=== PATIENT | female | born 1945 | race Caucasian/White ===

== ENCOUNTER 2016-06-18 11:09 | Emergency (ER) | payer OTHER, MEDICARE ==
[~2016-06-18] VITALS: Ht 154.9 cm; Wt 44.5 kg
[~2016-06-18 11:09] MED LIST: ALBUTEROL SULFAT3 M1 IH; ALBUTEROL0.09 MG/A1 INH; ALBUTEROL2.5 MG/3 M INH/SOL; AMLODIPINE BESYL5 M1 PO; AMLODIPINE10 MG PO; AMOXIL 875 MG875 MG PO; ATORVASTATIN CA20 MG PO; BUPROPION HCL150 M2 PO; BUPROPION HCL150 M4 PO; BUPROPION HCL150 MG PO; CATAPRES 0.1MG0.1 MG PO; CLONIDINE HCL0.1 MG PO; CLONIDINE PO; COREG 12.5MG12.5 MG PO; COREG 6.256.25 MG PO; COREG12.5 M1 PO; COUMADIN5 M2 PO; COZAAR 50MG TAB50 MG PO; COZAAR50 M1 PO; CYCLOBENZAPRINE5 M2 PO; DILAUDID2 M1 PO; FERROUS SULFAT325 M3 PO; K-DUR20 MEQ PO; LASIX20 M1 PO; LASIX40 MG PO; LASIX80 MG PO; LEADER NIC14 MG/24 H TOP; LORAZEPAM1 M1 PO; LORAZEPAM1 MG PO; LOSARTAN POTAS100 MG PO; LOSARTAN POTASS25 M1 PO; METOPROLOL SUC100 M1 PO; METOPROLOL TART50 MG PO; MIRALAX17 GM PO; MIRTAZAPINE15 MG PO; NOVOLOG100 U/ML SC; OXYCODONE HCL5 M1 PO; OXYCODONE5 MG PO; OXYCONTIN15 M1 PO; PERCOCET 325 MG1 TA2 PO; PERCOCET 5-3251 EACH PO; PREDNISONE 20MG20 MG PO; PREDNISONE10 MG PO; PROAIR HFA8.5 GM INH; PROCRIT10000 U/ML IJ; PROVENTIL0.09 MG/A1 PO; ROXICODONE5 MG PO; SYMBICORT 160/41 PUF INH; Senokot S PO; TESSALON PERLE100 MG PO; TRAZODONE HCL50 M1 PO; TYLENOL TAB 32325 MG PO; TYLENOL325 M1 PO; VIBRAMYCIN 100100 MG PO; VITAMIN D1000 UNI1 PO; VITAMIN D50000 IU PO; ZAROXOLYN - DIUL5 MG PO; ZITHROMAX Z-PA250 M1 PO
--- NOTE | 2016-06-18 12:24 | ED MVC/FALL/TRAUMA COMPLAINT ---
History of Present Illness General Chief Complaint: Low Back Pain/Injury Stated Complaint: BACK PAIN S/P SLIP AND FALL Source: patient, old records Exam Limitations: no limitations Vital Signs & Intake/Output Vital Signs & Intake/Output ED Intake and Output 06/19 0000 06/18 1200 Intake Total Output Total Balance Patient 98 lb Weight Allergies Coded Allergies: No Known Allergies (12/05/15) Reconcile Medications Albuterol Sulfate (Proair Hfa) 8.5 GM HFA.AER.AD 2 PUF INH PRN COPD (Reported ) Albuterol Sulfate 2.5 MG/3 ML VIAL.NEB 1 Vial INH/REG PRN COPD (Reported) Amlodipine Besylate 5 MG TABLET 1 TAB PO DAILY BLOOD PRESSURE Carvedilol (Coreg) 12.5 MG TABLET 1 TAB PO BID HEART (Reported) Clonidine HCl 0.1 MG TABLET 1 TAB PO BID BLOOD PRESSURE Ferrous Sulfate 325 MG TABLET 1 TAB PO DAILY SUPPLEMENT (Reported) Furosemide (Lasix) 20 MG TABLET 1 TAB PO DAILY DIURETIC (Reported) Lorazepam 1 MG TABLET 1 TAB PO TID PRN ANXIETY (Reported) Losartan Potassium (Cozaar) 50 MG TABLET 1 TAB PO DAILY BP (Reported) Oxycodone HCl/Acetaminophen (Percocet 5-325 MG Tablet) 1 EACH TABLET 1-2 TAB PO Q4-6 HR PRN PAIN Oxycodone HCl/Acetaminophen (Percocet 5-325 MG Tablet) 5 MG-325 MG TABLET 1 TAB PO TID PRN pain Trazodone HCl 50 MG TABLET 1 TAB PO QHS PRN SLEEP (Reported) Triage Note: PT STATE STHAT SHE WAS STANDING ON THE COUCH TRYING TO REACH FOR LAUNDRY BASKET 2 NIGHTS AGO WHEN SHE FELL BACKWARDS HURTING HER LOW BACK. DENIES HITTING HER HEAD. COMPLAINS OF MID LOW BACK PAIN5 1 Triage Nurses Notes Reviewed? yes Onset: Gradual Duration: day(s): (2), constant Timing: recent history Severity: moderate Severity Numbers: 6 Injuries/Fall Location: back Method of Injury: fall Loss of Consciousness: no loss of consciousness Modifying Factors: Worsens With: movement. 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 There is no loss of consciousness there is no head strike no neck or upper back pain. She denies any abdominal pain arm or leg pain no numbness or tingling no nausea or vomiting. No urinary bowel incontinence. He denies any other complaints patient is otherwise resting comfortably she is not taken anything for the pain pain is worse with change in position better at rest (KELLY SMILEY) Past History Travel History Traveled to [place] past 21 day No Medical History Any Pertinent Medical History? 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 associated with prior liver anemia patient was treated with multiple rounds of rituximab infusion the multiple rounds of rituximab infusion the last one was on July 2015 Musculoskeletal: LEFT HIP FRACTURE 2016 LEFT HIP DISLOCATION X 2 Psychiatric: anxiety, depression Endocrine: NONE Blood Disorders: NONE Cancer(s): NONE APPLICATIONS PACKAGER/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: NONE History of MRSA: No History of VRE: No History of CDIFF: No Surgical History Surgical History: hernia repair-inguinal, hernia repair-umbilical, HERNIA, VARICOSE VEINS Arterial intervention tonsilloectomy Psychosocial History Who do you live with Patient/Self Services at Home Nursing What is your primary language Maltese Tobacco Use: Current Daily Use Daily Tobacco Use Amount/Type: => 5 Cigarettes daily ETOH Use: denies use Illicit Drug Use: denies illicit drug use Family History Family History, If Any: SISTER FATHER MOTHER BROTHER (Myocardial infarction age of 4343 years old). . FATHER FATHER (Liver and lung cancer). . MOTHER MOTHER (Alcoholism and pheochromocytoma). . Relation not specified for: Alcoholism in mother Family hx of lung cancer FH: lung cancer FH: myocardial infarction Hx Contributory? No (KELLY SMILEY) Review of Systems Review of Systems Constitutional: Reports: see HPI. All Other Systems: Reviewed and Negative Comments Review of systems: See HPI, All other systems negative. Constitutional, no chills no fever, no malaise HEENT: no sore throat no congestion, no ear pain Cardiovascular: No chest pain , no palpitation Skin, no jaundice no rashes, no change in skin Respiratory: No dyspnea no cough no sputum GI: No nausea no vomiting, no diarrhea, no bloating/constipation : No dysuria No hematuria, no frequency Muscle skeletal: No joint pain, no joint swelling, back pain, no neck pain, Neurologic: No numbness no headache Psych: No stress Heme/endocrine: No bruising no bleeding Immunology: No lymphadenopathy (KELLY SMILEY) Physical Exam Physical Exam General Appearance: well developed/nourished, no apparent distress, alert, awake Comments: Well-developed well-nourished person in no acute distress HEENT: Normal EENT exam; PERRL, EOMI, HEAD is atraumatic. moist mucous membranes. Neck: Supple, normal range of motion Back: There is right sided paralumbar muscle tenderness palpation or ecchymosis or signs of trauma, no CVA tenderness. Full range of motion Cardiovascular: Regular rate and rhythms no murmurs rubs Respiratory: Chest nontender.There were no bony deformities, no asymmetry. No respiratory distress. Patient speaking in full complete sentences. Breath sounds clear to auscultation bilaterally: NO W/R/R Abdomen: Soft, nontender nondistended, no appreciable organomegaly. Normal bowel sounds. No rebound/guarding, Extremity: No edema, full range of motion of extremities, normal and equal pulses bilaterally, 5 out of 5 strength noted to bilateral upper and lower extremities NEG SLR B/L Neuro: Alert oriented x3, motor sensory normal. There were no obvious focal neurologic abnormalities. Skin: No appreciable rash on exposed skin, skin is warm and dry. Psych: Mood and affect is normal, memory and judgment is normal. Core Measures ACS in differential dx? No Severe Sepsis Present: No Septic Shock Present: No (KELLY SMILEY) Progress Differential Diagnosis: abd injury, C/T/L spine injury, ext injury, ICH, pelvis injury, spinal cord injury Plan of Care: Patient medicated with morphine 4 mg IM CAT scan ordered Discussed with patient and her family her CT results and the compression fractures seen on CT one of which is new compared to previous. The patient states her symptoms are resolved with the morphine and is requesting a prescription for Percocet she states she feels comfortable going home she is ambulatory here with steady gait, she'll follow up with her primary care physician she will return anytime sooner with any concerns Diagnostic Imaging: Viewed by Me: CT Scan. Discussed w/RAD: CT Scan. Radiology Impression: PATIENT: MANUEL CURIEL PRESENT AGE: 70 PATIENT ACCOUNT NO: [id number] : 46 LOCATION: [facility] ORDERING PHYSICIAN: KELLY AGUILAR SERVICE DATE: 06/18/16 EXAM TYPE: CAT - CT LUMB SPINE WO IV CONTRAST EXAMINATION: CT LUMBAR SPINE WITHOUT CONTRAST CLINICAL INFORMATION: Low back pain after fall. COMPARISON: CXR from 06/05/2015. Abdomen and pelvis CT from 10/16/2014. TECHNIQUE: Helical non-contrast CT images were obtained through the lumbar spine and 1.25 and 2.5 mm axial reconstructions were reviewed along with sagittal and coronal MPRs. DLP: 230.99 mGy-cm FINDINGS: Bone density appears diffusely decreased. The framing machine tender image shows intact appearance of the visualized portion of the left hip hemiarthroplasty. Old, severe anterior compression fracture of T12 with vertebral plana deformity and approximately 25 degrees of kyphosis as measured from the inferior endplate of T11 to the superior endplate of L1. These findings are similar in appearance compared to 10/16/2014. There is chronic, mild compression of the posterior third of the superior endplate of the L1 vertebral body. At L1-L2, there is chronic, predominantly posterior disc space narrowing and vacuum disc phenomenon. There is an acute, horizontal fracture through the superior third of the L2 vertebra, mild compression of its superior endplate, and minimal buckling of the superior aspect of its posterior vertebral body wall. There is approximately 20-25% anterior height loss of L2. At L2-L3, there is mild degenerative disc space narrowing, mild disc bulge and osteophyte formation with minimal retrolisthesis of L2 on L3 no significant narrowing of the central canal or neural foramina. At L3-L4, there is mild disc space narrowing and mild disc bulge without significant narrowing of the central canal or neural foramina. At L4-L5, there is severe facet osteoarthritis, left sided laminotomy defect, moderate disc degeneration and disc bulge producing chronic central canal stenosis and right greater than left neural foraminal stenosis. There is chronic grade 1 anterolisthesis of L4 on L5. At L5-S1, there is [id number] facet arthropathy and severe degenerative disc disease with osteophytes producing moderate right and severe left foraminal stenosis. These degenerative findings in the lumbar spine are not appreciably changed compared to 10/16/2014. Mild osteoarthrosis of sacroiliac joints. No evidence of sacral fracture. Atherosclerotic calcification of the abdominal aorta and iliac arteries without aneurysm. There is a stent of the right external iliac artery. No pelvic free fluid. IMPRESSION: 1. Old, severe compression fracture of T12 (i.e. vertebral plana) resulting in hyperkyphosis at the thoracolumbar junction. This remains similar in appearance compared to 10/16/2014. 2. There is a new compression fracture of L2 which exhibits 20-25% anterior height loss. 3. Otherwise, findings within the degenerated spine are not significantly changed compared to 10/16/2014. DICTATED BY: VU MANUEL MD DATE/TIME DICTATED:06/18/161324 LIMITED RADIOLOGY TECHNICIAN:KYLE DATE/TIME TRANSCRIBED:06/18/161324 CONFIDENTIAL, DO NOT COPY WITHOUT APPROPRIATE AUTHORIZATION. <Electronically signed in Other Vendor System> SIGNED BY: VU MANUEL MD 06/18/16 1346 (KELLY SMILEY) Departure Departure Time of Disposition: 1425 Disposition: HOME OR SELF CARE Condition: Stable Clinical Impression Primary Impression: Compression fracture Secondary Impressions: Fall Referrals: KIRSTY WIN,CARON Narvaez (PCP/Family) Additional Instructions: Percocet as directed use caution as this will make you drowsy. Ibuprofen 400 mg every 8 hours this was sent to pharmacy follow-up with primary care physician Departure Forms: Customer Survey General Discharge Information Prescriptions: Current Visit Scripts Oxycodone HCl/Acetaminophen (Percocet 5-325 MG Tablet) 1 TAB PO TID PRN pain #15 TAB (KELLY SMILEY) PA/AUDIOLOGY DIRECTOR Co-Sign Statement Statement: ED Attending supervision documentation- x I saw and evaluated the patient. I have also reviewed all the pertinent lab results and diagnostic results. I agree with the findings and the plan of care as documented in the PA's/AUDIOLOGY DIRECTOR's documentation. [] I have reviewed the ED Record and agree with the PA's/AUDIOLOGY DIRECTOR's documentation. [] Additions or exceptions (if any) to the PAs/AUDIOLOGY DIRECTOR's note and plan are summarized below: [] (GEOVANNA WIN,RADHA)
[2016-06-18 13:20] VITALS: BP 150/72
--- NOTE | 2016-06-18 13:46 | CT SCAN REPORT ---
EXAMINATION: CT LUMBAR SPINE WITHOUT CONTRAST CLINICAL INFORMATION: Low back pain after fall. COMPARISON: CXR from 06/05/2015. Abdomen and pelvis CT from 10/16/2014. TECHNIQUE: Helical non-contrast CT images were obtained through the lumbar spine and 1.25 and 2.5 mm axial reconstructions were reviewed along with sagittal and coronal MPRs. DLP: 230.99 mGy-cm FINDINGS: Bone density appears diffusely decreased. The state game protector image shows intact appearance of the visualized portion of the left hip hemiarthroplasty. Old, severe anterior compression fracture of T12 with vertebral plana deformity and approximately 25 degrees of kyphosis as measured from the inferior endplate of T11 to the superior endplate of L1. These findings are similar in appearance compared to 10/16/2014. There is chronic, mild compression of the posterior third of the superior endplate of the L1 vertebral body. At L1-L2, there is chronic, predominantly posterior disc space narrowing and vacuum disc phenomenon. There is an acute, horizontal fracture through the superior third of the L2 vertebra, mild compression of its superior endplate, and minimal buckling of the superior aspect of its posterior vertebral body wall. There is approximately 20-25% anterior height loss of L2. At L2-L3, there is mild degenerative disc space narrowing, mild disc bulge and osteophyte formation with minimal retrolisthesis of L2 on L3 no significant narrowing of the central canal or neural foramina. At L3-L4, there is mild disc space narrowing and mild disc bulge without significant narrowing of the central canal or neural foramina. At L4-L5, there is severe facet osteoarthritis, left sided laminotomy defect, moderate disc degeneration and disc bulge producing chronic central canal stenosis and right greater than left neural foraminal stenosis. There is chronic grade 1 anterolisthesis of L4 on L5. At L5-S1, there is [id number]-ri-[id number] facet arthropathy and severe degenerative disc disease with osteophytes producing moderate right and severe left foraminal stenosis. These degenerative findings in the lumbar spine are not appreciably changed compared to 10/16/2014. Mild osteoarthrosis of sacroiliac joints. No evidence of sacral fracture. Atherosclerotic calcification of the abdominal aorta and iliac arteries without aneurysm. There is a stent of the right external iliac artery. No pelvic free fluid. IMPRESSION: 1. Old, severe compression fracture of T12 (i.e. vertebral plana) resulting in hyperkyphosis at the thoracolumbar junction. This remains similar in appearance compared to 10/16/2014. 2. There is a new compression fracture of L2 which exhibits 20-25% anterior height loss. 3. Otherwise, findings within the degenerated spine are not significantly changed compared to 10/16/2014.
[2016-06-18] MEDS ORDERED: PERCOCET 5-3251 EACH PO (14:33)
[2016-09-08] MEDS ORDERED: ZOLOFT50 M1 PO (13:16)
[2016-09-08] MEDS ORDERED: AMLODIPINE BESY10 M1 PO (13:16)
[2016-09-08] MEDS ORDERED: ATIVAN0.5 M1 PO (13:17)
== END 2016-06-18 14:38 ==
LOC: ERH 11:09
DX: S32.020A Wedge compression fracture of second lumbar vertebra, initial encounter for closed fracture (principal); W08.XXXA Fall from other furniture, initial encounter
CPT/HCPCS: 96372

== ENCOUNTER → 2016-09-10 | Day surgery (SDC) | payer OTHER, MEDICARE ==
[~2016-09-10] VITALS: Ht 154.9 cm; Wt 44.5 kg
[~2016-09-10] MED LIST changes: +AMLODIPINE BESY10 M1 PO; +ATIVAN0.5 M1 PO; +IBUPROFEN600 M1 PO; +PERCOCET 10-321 EACH PO; +ZOLOFT50 M1 PO
--- NOTE | 2016-09-10 12:29 | Operative Report ---
Operative/Inv Procedure Report Surgery Date: 09/10/16 Name of Procedure: Laparoscopic bilateral inguinal hernia repair Pre-Operative Diagnosis: Left inguinal hernia Post-Operative Diagnosis: Bilateral inguinal hernia Estimated Blood Loss: scant Surgeon/Athletic Trainer: DB WIN,EILEEN Neumann/Svetlana AGUILAR Anesthesia: general endotracheal tube Implants: Parietex mesh Operative/Procedure Note Note: After consent patient is brought to the operating room laid supine. General anesthesia was obtained and the abdomen was prepped and draped. Skin was anesthetized with local anesthesia and a transverse infraumbilical incision made sharply. We identified the rectus fascia and incised transversely. Stay sutures were placed. Rectus muscle was retracted laterally and a dissecting balloon placed posterior to it. It was inflated under direct vision the camera and replaced with a blunt Key port. Gas was instilled. 2, 5 mm ports were placed in the infraumbilical midline after local anesthesia was instilled and under direct vision and camera. Began our dissection at the pubis and delineated the symphysis. Carrillo's ligament was identified and cleared. Then dissected laterally and developed the iliopubic tract. The round ligament structures were circumferentially dissected. There was a small indirect hernia sac which was delivered from the indirect space and reflected inferiorly. A small cord lipoma was then delivered. Once the dissection was completed a left -sided piece of Parietex mesh was placed in the cavity. It was tacked medially to keep it in anatomic position. We then turned attention to the contralateral side. Preoperative lead patient complains of new onset right groin pain. I recommended exploration of that site, concurrently. There was a moderate sized femoral hernia. The tissues were dissected in a similar fashion to the left side. There was a small indirect sac as well. There was a small cord lipoma which was delivered. Round ligament was divided. Mesh was placed a similar fashion intact. Once were happy with the position of both meshes, the gas was allowed to escape on maintaining proper orientation of the mesh. The fascia was closed with 0 Vicryl suture. Skin incisions closed with 4-0 Vicryl. Steri- Strips and sterile dressing applied. Sponge and needle counts are correct. Findings: Indirect left, femoral right CC: KIRSTY WIN,CARON Narvaez
== END ==
LOC: STS 03:25
DX: K40.20 Bilateral inguinal hernia, without obstruction or gangrene, not specified as recurrent (principal); R10.32 Left lower quadrant pain; R10.31 Right lower quadrant pain; B18.2 Chronic viral hepatitis C; I12.9 Hypertensive chronic kidney disease with stage 1 through stage 4 chronic kidney disease, or unspecified chronic kidney disease; N18.4 Chronic kidney disease, stage 4 (severe); F17.200 Nicotine dependence, unspecified, uncomplicated
CPT/HCPCS: C1781; J0690; J2250

== ENCOUNTER 2016-09-20 10:15 | Emergency (ER) | payer OTHER, MEDICARE ==
[~2016-09-20] VITALS: Ht 152.4 cm; Wt 43.1 kg
[~2016-09-20 10:15] MED LIST changes: -IBUPROFEN600 M1 PO; -PERCOCET 10-321 EACH PO
--- NOTE | 2016-09-20 12:15 | RADIOLOGY REPORT ---
EXAMINATION: XR SHOULDER, RIGHT CLINICAL INFORMATION: Fall, right shoulder ecchymosis and pain. COMPARISON: None TECHNIQUE: Four views of the right shoulder. FINDINGS: There is marked superior subluxation of the humeral head with sclerosis of the humeral head and subchondral cyst formation. There is also chronic thinning of the undersurface of the acromion. Moderate osteophyte formation is seen at the humeral head as well as at the acromioclavicular joint. No fracture is seen. No additional findings. The glenohumeral joint is not significantly narrowed. IMPRESSION: Significant degenerative changes in the right shoulder most notable at the acromioclavicular joint and humeral head. Marked superior subluxation of the humeral head consistent with chronic advanced rotator cuff disease with advanced degenerative changes in the humeral head and acromion. Associated degenerative change in the acromioclavicular joint. No acute findings.
--- NOTE | 2016-09-20 12:22 | RADIOLOGY REPORT ---
EXAMINATION: XR KNEE, LEFT CLINICAL INFORMATION: Fall with left knee pain and swelling, loss of range of motion. COMPARISON: None TECHNIQUE: Four views of the left knee. FINDINGS: Trace knee joint effusion. Moderate soft tissue swelling is identified most notable medial to the right knee and patella. There is a suggestion of a patellar fracture on the internally rotated view. Moderate narrowing of the lateral knee joint is seen with mild valgus angulation no additional findings. IMPRESSION: Moderate soft tissue swelling and trace knee effusion. Possible patellar fracture. Recommend sunrise view for further evaluation. Degenerative changes are seen in the lateral joint compartment.
--- NOTE | 2016-09-20 12:42 | ED MVC/FALL/TRAUMA COMPLAINT ---
History of Present Illness General Chief Complaint: Fall Stated Complaint: FALL YESTERDAY LFT KNEE PAIN Source: patient, old records Exam Limitations: no limitations Vital Signs & Intake/Output Vital Signs & Intake/Output Vital Signs Date Time Temp Pulse Resp B/P B/P Pulse O2 O2 Flow FiO2 Mean Ox Delivery Rate 09/20 1255 200/100 09/20 1218 97.3 72 18 203/93 100 Room Air 09/20 1031 97.1 73 18 170/96 95 Allergies Coded Allergies: No Known Allergies (12/05/15) Reconcile Medications Albuterol Sulfate (Proair Hfa) 8.5 GM HFA.AER.AD 2 PUF INH PRN COPD (Reported ) Albuterol Sulfate 2.5 MG/3 ML VIAL.NEB 1 Vial INH/REG PRN COPD (Reported) Amlodipine Besylate 10 MG TABLET 1 TAB PO DAILY HTN (Reported) Carvedilol (Coreg) 12.5 MG TABLET 1 TAB PO BID HEART (Reported) Clonidine HCl 0.1 MG TABLET 1 TAB PO BID BLOOD PRESSURE Ferrous Sulfate 325 MG TABLET 1 TAB PO DAILY SUPPLEMENT (Reported) Furosemide (Lasix) 20 MG TABLET 1 TAB PO DAILY DIURETIC (Reported) Ibuprofen 600 MG TABLET 1 TAB PO Q6PRN PRN pain with food Lorazepam (Ativan) 0.5 MG TABLET 1 TAB PO TID ANXIETY (Reported) Losartan Potassium (Cozaar) 50 MG TABLET 1 TAB PO DAILY BP (Reported) Oxycodone HCl/Acetaminophen (Percocet 10-325 MG Tablet) 10 MG-325 MG TABLET 1 TAB PO 4 TIMES/DAY PRN severe pain Sertraline HCl (Zoloft) 50 MG TABLET 1 TAB PO DAILY DEPRESSION (Reported) Triage Note: PT TO ED FOR LEFT LEG PAIN AFTER A TRIP OUTSIDE OF THE [employer] YESTERDAY, NO LOC. Triage Nurses Notes Reviewed? yes Onset: yesterday Duration: day(s):, constant, continues in ED Timing: recent history Severity: severe Injuries/Fall Location: upper extremity, lower extremity Method of Injury: direct blow, fall Loss of Consciousness: no loss of consciousness Modifying Factors: Worsens With: movement, palpation. Associated Symptoms: trouble walking LMP (ages 10-50): post menopausal : No Patient currently breastfeeds: No HPI: 1 day prior to admission patient slipped and fell landing on her right shoulder and left knee complaining of constant sharp pain and swelling limited range of motion. She denies other injury fever chills nausea vomiting diarrhea abdominal pain chest pain shortness of breath headache dysuria rash bleeding Past History Travel History Traveled to [place] past 21 day No Medical History Any Pertinent Medical History? 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 . FATHER FATHER (Liver and lung cancer). . MOTHER MOTHER (Alcoholism and pheochromocytoma). . Relation not specified for: Alcoholism in mother Family hx of lung cancer FH: lung cancer FH: myocardial infarction Hx Contributory? No Review of Systems Review of Systems Constitutional: Reports: no symptoms. Eyes: Reports: no symptoms. Ears, Nose, Throat, Mouth: Reports: no symptoms. Respiratory: Reports: no symptoms. Cardiovascular: Reports: no symptoms. Gastrointestinal/Abdominal: Reports: no symptoms. Genitourinary: Reports: no symptoms. Musculoskeletal: Reports: see HPI, joint pain, joint swelling. Skin: Reports: no symptoms. Neurological/Psychological: Reports: no symptoms. All Other Systems: Reviewed and Negative Physical Exam Physical Exam General Appearance: well developed/nourished, alert, awake, anxious, moderate distress, thin Head: atraumatic, normal appearance Eyes: Bilateral: normal appearance, PERRL, EOMI. Ears, Nose, Throat, Mouth: hearing grossly normal, moist mucous membrane Neck: normal inspection, supple, full range of motion, normal alignment Respiratory: normal breath sounds, chest non-tender, no respiratory distress, quiet respiration, lungs clear Cardiovascular: regular rate/rhythm, normal peripheral pulses, norml femoral pulses equa Peripheral Pulses: 4+ carotid (R), 4+ carotid (L) Gastrointestinal: normal bowel sounds, soft, non-tender, no organomegaly Back: normal inspection, normal range of motion Extremities: evidence of injury, bony-point tenderness, limited range of motion, straight leg raised, tenderness Neurologic/Psych: no motor/sensory deficits, awake, alert, oriented x 3, normal gait Skin: intact, normal color, warm/dry Core Measures ACS in differential dx? No Severe Sepsis Present: No Septic Shock Present: No Progress Differential Diagnosis: ext injury Plan of Care: Orders Procedure Date/time Status XRY-KNEE, LEFT 09/20 1236 Active Diagnostic Imaging: Viewed by Me: Radiology Read. Discussed w/RAD: Radiology Read. Radiology Impression: Moderate soft tissue swelling and trace knee effusion. Possible patellar fracture. Recommend sunrise view for further evaluation. Degenerative changes are seen in the lateral joint compartment., Significant degenerative changes in the right shoulder most notable at the acromioclavicular joint and humeral head. Marked superior subluxation of the humeral head consistent with chronic advanced rotator cuff disease with advanced degenerative changes in the humeral head and acromion. Associated degenerative change in the acromioclavicular joint. No acute findings., Unremarkable sunrise view however there does appear to be a nondisplaced horizontal fracture which would not be evident on sunrise view. Departure Departure Time of Disposition: 1358 Disposition: HOME OR SELF CARE Condition: Stable Clinical Impression Primary Impression: Left patella fracture Qualifiers: Encounter type: initial encounter Fracture type: closed Fracture morphology: transverse Fracture alignment: nondisplaced Qualified Code: S82.035A - Nondisplaced transverse fracture of left patella, initial encounter for closed fracture Secondary Impressions: Contusion of knee, left Qualifiers: Encounter type: initial encounter Qualified Code: S80.02XA - Contusion of left knee, initial encounter Contusion of shoulder, right Qualifiers: Encounter type: initial encounter Qualified Code: S40.011A - Contusion of right shoulder, initial encounter Fall Qualifiers: Encounter type: initial encounter Qualified Code: W19.XXXA - Unspecified fall, initial encounter Referrals: KIRSTY WIN,CARON Narvaez (PCP/Family) CONSTANCE SUERO MD Call for orthopedic follow up Departure Forms: Customer Survey General Discharge Information Prescriptions: Current Visit Scripts Ibuprofen 1 TAB PO Q6PRN PRN pain #50 TAB with food Oxycodone HCl/Acetaminophen (Percocet 10-325 MG Tablet) 1 TAB PO 4 TIMES/DAY PRN severe pain #15 TAB Procedures Splinting Location: L knee Pre-Made Type: knee imobilizer Splint: knee immobilizer Splint Applied By: splint applied by other Pre-Proc Neuro Vasc Exam: normal Post-Proc Neuro Vasc Exam: normal
[2016-09-20] MEDS ORDERED: PERCOCET 10-321 EACH PO (14:03)
[2016-09-20] MEDS ORDERED: IBUPROFEN600 M1 PO (14:03)
--- NOTE | 2016-09-20 14:09 | RADIOLOGY REPORT ---
EXAMINATION: XR KNEE sunrise view CLINICAL INFORMATION: Question patellar fracture. COMPARISON: Earlier on same day TECHNIQUE: Clarinda view of the left knee. FINDINGS: The sunrise view does not show any abnormality however on 2 other views performed earlier there appears to be a nondisplaced horizontal fracture of the patella. No distraction of fracture fragments identified. IMPRESSION: Unremarkable sunrise view however there does appear to be a nondisplaced horizontal fracture which would not be evident on sunrise view.
[2016-09-20 14:28] VITALS: BP 184/91
== END 2016-09-20 14:35 ==
LOC: ERH 10:15
DX: S82.002A Unspecified fracture of left patella, initial encounter for closed fracture (principal); S40.011A Contusion of right shoulder, initial encounter; S80.02XA Contusion of left knee, initial encounter; W01.0XXA Fall on same level from slipping, tripping and stumbling without subsequent striking against object, initial encounter; Y92.510 Bank as the place of occurrence of the external cause; Y93.9 Activity, unspecified
CPT/HCPCS: 73030-RT; 73560-LT; 73562-LT

== ENCOUNTER 2017-07-01 16:23 | Emergency (ER) | payer OTHER, MEDICARE ==
[~2017-07-01] VITALS: Ht 157.5 cm; Wt 45.4 kg
[~2017-07-01 16:23] MED LIST changes: +IBUPROFEN600 M1 PO; +PERCOCET 10-321 EACH PO
[2017-07-01 17:04] LABS: ABSOLUTE BASOPHIL COUNT 0 /CUMM (0.0-0.2); ABSOLUTE EOSINOPHIL COUNT 0.1 /CUMM (0.0-0.7); ABSOLUTE GRANULOCYTE CT 5.3 /CUMM (1.4-6.5); ABSOLUTE LYMPH COUNT 1.5 /CUMM (1.2-3.4); ABSOLUTE MONOCYTE COUNT 0.7 /CUMM (0.10-0.60); BASOPHIL % 0.3 % (0.0-2.0); EOSINOPHIL % 0.7 % (0-5); GRANULOCYTE % 70.1 % (42.2-75.2); HEMATOCRIT 35.3 % (37-47); MEAN CORPUSCULAR HGB 30.4 PG (27.0-31.0); MEAN CORPUSCULAR VOLUME 89.4 FL (81.0-99.0); MEAN PLATELET VOLUME 7.7 FL (7.4-10.4); PLATELET COUNT 259 /CUMM (130-400); RBC DISTRIBUTION WIDTH 13.6 % (11.5-14.5); RED BLOOD CELL CT 3.95 /CUMM (4.20-5.40); WHITE BLOOD CELL COUNT 7.5 /CUMM (4.8-10.8)
--- NOTE | 2017-07-01 17:07 | ED GENERAL ADULT ---
History of Present Illness General Chief Complaint: General Adult Stated Complaint: HTN Source: patient Exam Limitations: no limitations Vital Signs & Intake/Output Vital Signs & Intake/Output Vital Signs Date Time Temp Pulse Resp B/P B/P Pulse O2 O2 Flow FiO2 Mean Ox Delivery Rate 07/01 2101 98.0 66 18 168/78 98 Room Air 07/01 1950 97.9 62 18 170/88 98 Room Air 07/01 1833 97.2 84 18 178/79 99 Room Air 07/01 1757 97.1 60 16 192/92 100 Room Air 07/01 1755 192/92 07/01 1645 98 Room Air 07/01 1629 97.0 65 18 198/96 99 Room Air Allergies Coded Allergies: No Known Allergies (12/05/15) Reconcile Medications Albuterol Sulfate (Proair Hfa) 8.5 GM HFA.AER.AD 2 PUF INH PRN COPD (Reported ) Albuterol Sulfate 2.5 MG/3 ML VIAL.NEB 1 Vial INH/REG PRN COPD (Reported) Amlodipine Besylate 10 MG TABLET 1 TAB PO DAILY HTN (Reported) Carvedilol (Coreg) 12.5 MG TABLET 1 TAB PO BID HEART (Reported) Clonidine HCl 0.1 MG TABLET 1 TAB PO BID BLOOD PRESSURE Ferrous Sulfate 325 MG TABLET 1 TAB PO DAILY SUPPLEMENT (Reported) Furosemide (Lasix) 20 MG TABLET 1 TAB PO DAILY DIURETIC (Reported) Ibuprofen 600 MG TABLET 1 TAB PO Q6PRN PRN pain with food Lorazepam (Ativan) 0.5 MG TABLET 1 TAB PO TID ANXIETY (Reported) Losartan Potassium (Cozaar) 50 MG TABLET 1 TAB PO DAILY BP (Reported) Oxycodone HCl/Acetaminophen (Percocet 10-325 MG Tablet) 10 MG-325 MG TABLET 1 TAB PO 4 TIMES/DAY PRN severe pain Sertraline HCl (Zoloft) 50 MG TABLET 1 TAB PO DAILY DEPRESSION (Reported) Triage Note: 71 YEAR OLD FEMALE BROUGHT TO ER VIA STRETCHER FROM GI LAB FOR ELEVATED BP , PER DEYA FROM GI, PT CAME IN FOR HER COLONOSCOPY AND HER BP WAS ELEVATED , THEY MEDICATED HER WITH [id number] MG IV AND BP STABALIZED AND SHE HAD HER PROCEDURE, AFTER PROCEDURE HER BP WAS ELEVATED AGAIN AND SHE WAS BROUGHT TO ER FOR FURTHER EVALUATION OF HER BP. DENIES CP/SOB STATES THAT SHE DID HAVE L ARM PAIN YESTERDAY. Triage Nurses Notes Reviewed? yes Onset: Abrupt Duration: hour(s):, constant Timing: recent history Injury Environment: home No Modifying Factors: none HPI: 71-year-old female comes into the emergency room for further evaluation from GI suite being found to be hypertensive. Patient reportedly was hypertensive prior to the colonoscopy. They gave her some labetalol. She was hypertensive after the colonoscopy at 230 systolic. She denies any chest pain or shortness of breath currently. She reports though that she did have some chest pain the other day intermittently in the left side. Denies any fever chills vomiting. She's also had neck pain left posterior for a few days. (Chris Mccallum) Past History Travel History Traveled to [place] past 21 day No Medical History Any Pertinent Medical History? 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 . FATHER FATHER (Liver and lung cancer). . MOTHER MOTHER (Alcoholism and pheochromocytoma). . Relation not specified for: Alcoholism in mother Family hx of lung cancer FH: lung cancer FH: myocardial infarction Hx Contributory? No (Chris Mccallum) Review of Systems Review of Systems Constitutional: Reports: no symptoms. EENTM: Reports: no symptoms. Respiratory: Reports: no symptoms. Cardiovascular: Reports: see HPI. GI: Reports: no symptoms. Genitourinary: Reports: no symptoms. Musculoskeletal: Reports: no symptoms. Skin: Reports: no symptoms. Neurological/Psychological: Reports: no symptoms. Hematologic/Endocrine: Reports: no symptoms. Immunologic/Allergic: Reports: no symptoms. All Other Systems: Reviewed and Negative (Chris Mccallum) Physical Exam Physical Exam General Appearance: well developed/nourished, no apparent distress, alert, awake Head: atraumatic, normal appearance Eyes: Bilateral: normal appearance. Ears, Nose, Throat: normal ENT inspection, hearing grossly normal Neck: normal inspection Respiratory: normal breath sounds, no respiratory distress Cardiovascular: regular rate/rhythm Back: normal inspection Extremities: normal inspection, normal range of motion, no edema Neurologic/Psych: awake, alert, oriented x 3, normal gait, normal mood/affect Skin: intact, normal color Core Measures ACS in differential dx? Yes CVA/TIA Diagnosis: No Sepsis Present: No Sepsis Focused Exam Completed? No (Chris Mccallum) Progress Differential Diagnoses I considered the following diagnoses in my evaluation of the patient: Hypertensive urgency, hypertensive emergency, NE, end organ damage, Plan of Care: Orders Procedure Date/time Status Regular Diet 07/02 B Active TROPONIN LEVEL 07/01 1950 Complete EKG 07/01 1950 Active URINALYSIS 07/01 162 Complete TROPONIN LEVEL 07/01 1629 Complete PARTIAL THROMBOPLASTIN TIME 07/01 162 Complete PROTHROMBIN TIME 07/01 1629 Complete COMPREHENSIVE METABOLIC PANEL 07/01 1629 Complete CBC WITHOUT DIFFERENTIAL 07/01 162 Complete EKG 07/01 1629 Active Laboratory Tests 07/01/17 1945: Troponin I < 0.01 07/01/17 1712: Urine Color YEL, Urine Clarity CLEAR, Urine pH 6.0, Ur Specific [place] 1.020, Urine Protein 100 H, Urine Ketones NEG, Urine Nitrite NEG, Urine Bilirubin NEG, Urine Urobilinogen 0.2, Ur Leukocyte Esterase NEG, Ur Microscopic SEDIMENT EXAMINED, Urine RBC FEW H, Urine WBC RARE, Ur Epithelial Cells FEW, Urine Bacteria FEW H, Urine Mucus RARE, Urine Hemoglobin TRACE-INTACT, Urine Glucose 100 H 07/01/17 1648: Anion Gap 11, Estimated GFR 34 L, BUN/Creatinine Ratio 10.0, Glucose 84, Calcium 8.7, Total Bilirubin 0.4, AST 13 L, ALT 19, Alkaline Phosphatase 60, Troponin I < 0.01, Total Protein 6.0 L, Albumin 3.2 L, Globulin 2.8, Albumin/ Globulin Ratio 1.1, PT 11.3, INR 1.04, APTT 32, CBC w Diff NO MAN DIFF REQ, RBC 3.95 L, MCV 89.4, MCH 30.4, MCHC 34.0, RDW 13.6, MPV 7.7, Gran % 70.1, Lymphocytes % 19.2 L, Monocytes % 9.7 H, Eosinophils % 0.7, Basophils % 0.3, Absolute Granulocytes 5.3, Absolute Lymphocytes 1.5, Absolute Monocytes 0.7 H, Absolute Eosinophils 0.1, Absolute Basophils 0, Lyme Disease Antibody Cancelled Diagnostic Imaging: Viewed by Me: Radiology Read. Discussed w/RAD: Radiology Read. Radiology Impression: PATIENT: MANUEL CURIEL PRESENT AGE: 71 PATIENT ACCOUNT NO: [id number] : 46 LOCATION: [facility] ORDERING PHYSICIAN: Chris AGUILAR SERVICE DATE: 07/01/17 EXAM TYPE : RAD - XRY-PORTABLE CHEST XRAY EXAMINATION: XR PORTABLE CHEST CLINICAL INFORMATION: Intermittent chest pain COMPARISON: Multiple priors, most recently chest CT performed 07/17/2016 TECHNIQUE: Portable frontal view of the chest was obtained. FINDINGS: Cardiac leads overlie the chest. The lungs appear mildly hyperexpanded. There is no focal consolidation, edema, or effusion. No pneumothorax. Nipple shadows are noted bilaterally. The cardiomediastinal silhouette is within normal limits. No acute osseous abnormality. IMPRESSION: Mild lung hyperexpansion consistent with known emphysema. No consolidation. DICTATED BY: Albert Rdz MD DATE/TIME DICTATED:07/01/171699 PROPERTY DEVELOPER:KYLE DATE/TIME TRANSCRIBED:07/01/171699 CONFIDENTIAL, DO NOT COPY WITHOUT APPROPRIATE AUTHORIZATION. <Electronically signed in Other Vendor System> SIGNED BY: Albert Rdz MD 07/01/171704 Initial ED EKG: normal sinus rhythm, rate (60) Repeat EKG: unchanged (Chris Mccallum) Departure Departure Disposition: HOME OR SELF CARE Condition: Stable Clinical Impression Primary Impression: Hypertension Referrals: Buzz WIN,Hugh Hogan (PCP/Family) Additional Instructions: Take her blood pressure medication at home as prescribed. Return if any concerns worsening symptoms. Please go over all results of today's visit with your primary care doctor. Contact your primary care doctor to let them know you were here in the emergency room. There may be nonspecific findings which may not be related to your visit today here in the emergency room but may require further evaluation and chronic monitoring by your primary care doctor. If you had a laceration today the chance of foreign body always remains. You should follow-up with your primary care doctor for recheck in 3-5 days for a wound check. If you had an x-ray done there is a chance that a fracture could have been missed on initial read and you should follow-up with your primary care doctor for repeat x-rays if symptoms persist. If your blood pressure was elevated here in the emergency room please have rechecked by maria alejandra primary care doctor within the next 48. If you were prescribed a narcotic here in the emergency room or any type of controlled substances you're not allowed to drive while taking this medication or operate any type of heavy machinery. Narcotics can make you feel lightheaded dizziness nausea and can cause constipation. You may need to corn picker a stool softener. Thank you for choosing [facility] emergency room. Please return to the emergency room immediately if you have any other concerns worsening of symptoms. Departure Forms: Customer Survey General Discharge Information Comments 07/01/2017 8:44:57 PM Patient clinically looks well. In no apparent distress. Nontoxic appearing. Asymptomatic here in the emergency room. Follow-up with Dr. Esquivel from cardiology. Take your blood pressure medication as prescribed. Patient understands and agrees with plan of care. Reevaluated multiple times. Blood pressure improves. Patient seen by Dr. Dotson. Spoke with Dr. Esquivel on the phone as a consultation and he agrees he can follow up with the patient in the office. (Chris Mccallum) PA/ONCOLOGY SOCIAL WORK Co-Sign Statement Statement: ED Attending supervision documentation- [x] I saw and evaluated the patient. I have also reviewed all the pertinent lab results and diagnostic results. I agree with the findings and the plan of care as documented in the PA's/ONCOLOGY SOCIAL WORK's documentation. [] I have reviewed the ED Record and agree with the PA's/ONCOLOGY SOCIAL WORK's documentation. [] Additions or exceptions (if any) to the PAs/ONCOLOGY SOCIAL WORK's note and plan are summarized below: [] (Zeyad Dotson DO) Critical Care Note Critical Care Note Critical Care Time: 30-74 min (35) (Dylan AGUILAR,Chris)
[2017-07-01 17:10] LABS: PT 11.3 SEC (9.4-12.5); PTT 32 SEC (25-37)
[2017-07-01 21:01] VITALS: BP 168/78
== END 2017-07-01 21:02 ==
LOC: ERH 16:23
PROVIDERS: Physician Assistant Medical
DX: I10 Essential (primary) hypertension (principal); Z87.891 Personal history of nicotine dependence
CPT/HCPCS: 86618; 71045; 81001; 93005; 93010; 96374; 99291; J0360

== ENCOUNTER 2017-07-06 14:56 | Inpatient (IN) | payer OTHER, MEDICARE ==
[~2017-07-06] VITALS: Ht 154.9 cm; Wt 47.9 kg
[2017-07-06 17:34] LABS: ABSOLUTE BASOPHIL COUNT 0 /CUMM (0.0-0.2); ABSOLUTE EOSINOPHIL COUNT 0.2 /CUMM (0.0-0.7); ABSOLUTE GRANULOCYTE CT 4.7 /CUMM (1.4-6.5); ABSOLUTE LYMPH COUNT 1.3 /CUMM (1.2-3.4); ABSOLUTE MONOCYTE COUNT 0.6 /CUMM (0.10-0.60); BASOPHIL % 0.6 % (0.0-2.0); EOSINOPHIL % 3.3 % (0-5); GRANULOCYTE % 67.8 % (42.2-75.2); HEMATOCRIT 35.7 % (37-47); MEAN CORPUSCULAR HGB 30.6 PG (27.0-31.0); MEAN CORPUSCULAR HGB CONC 33.7 G/DL (33.0-37.0); MEAN PLATELET VOLUME 7.8 FL (7.4-10.4); PLATELET COUNT 243 /CUMM (130-400); RBC DISTRIBUTION WIDTH 14.6 % (11.5-14.5); RED BLOOD CELL CT 3.92 /CUMM (4.20-5.40); WHITE BLOOD CELL COUNT 6.9 /CUMM (4.8-10.8)
--- NOTE | 2017-07-06 17:35 | ED GENERAL ADULT ---
History of Present Illness General Chief Complaint: General Adult Stated Complaint: ELEVATED BP PER PT Source: patient Exam Limitations: no limitations Vital Signs & Intake/Output Vital Signs & Intake/Output Vital Signs Date Time Temp Pulse Resp B/P B/P Pulse O2 O2 Flow FiO2 Mean Ox Delivery Rate 07/06 1942 64 20 180/90 07/06 1936 64 20 180/90 07/06 1931 97 Room Air 07/06 1929 180/98 07/06 1929 97.0 64 20 183/87 98 Room Air 07/06 1912 70 20 189/90 07/06 1817 68 20 189/94 97 Room Air 07/06 1732 186/82 07/06 1701 97.8 61 18 198/102 96 Room Air 07/06 1503 98.5 68 20 172/95 96 Room Air Allergies Coded Allergies: No Known Allergies (12/05/15) Reconcile Medications Albuterol Sulfate (Proair Hfa) 8.5 GM HFA.AER.AD 2 PUF INH PRN COPD (Reported ) Albuterol Sulfate 2.5 MG/3 ML VIAL.NEB 1 Vial INH/REG PRN COPD (Reported) Amlodipine Besylate 10 MG TABLET 1 TAB PO DAILY HTN (Reported) Carvedilol (Coreg) 12.5 MG TABLET 1 TAB PO BID HEART (Reported) Clonidine HCl 0.1 MG TABLET 1 TAB PO BID BLOOD PRESSURE Ferrous Sulfate 325 MG TABLET 1 TAB PO DAILY SUPPLEMENT (Reported) Furosemide (Lasix) 20 MG TABLET 1 TAB PO DAILY DIURETIC (Reported) Ibuprofen 600 MG TABLET 1 TAB PO Q6PRN PRN pain with food Lorazepam (Ativan) 0.5 MG TABLET 1 TAB PO TID ANXIETY (Reported) Losartan Potassium (Cozaar) 50 MG TABLET 1 TAB PO DAILY BP (Reported) Oxycodone HCl/Acetaminophen (Percocet 10-325 MG Tablet) 10 MG-325 MG TABLET 1 TAB PO 4 TIMES/DAY PRN severe pain Sertraline HCl (Zoloft) 50 MG TABLET 1 TAB PO DAILY DEPRESSION (Reported) Triage Note: PT STATES [facility]NA TOOK BP TODAY AND IT WAS 188/90. PT STATES SHE TOOK HER MEDS AT 0730 AND BP WAS TAKEN AT 1400. PT DENIES H/A BUT STATES SHE HAS A NECK ACHE AND PAIN IN HER LEFT ARM Triage Nurses Notes Reviewed? yes Onset: Abrupt Duration: week(s):, intermittent Timing: recent history Severity: moderate, severe No Modifying Factors: none HPI: 71-year-old female comes into the emergency room for further evaluation of elevated blood pressure and intermittent left-sided neck and left arm pain. Symptoms began going on for the past few weeks. Patient was seen here recently for her blood pressure being elevated. She was getting a colonoscopy and was found to be hypertensive. She was seen here in the emergency room. She was given IV medications and had 2 EKGs and 2 troponins unchanged. She had no chest pain at that time. Her primary care doctor increased her carvedilol to 25 mg. She reports that her nurse came into her blood pressure and found it was still high at home. She still having the intermittent left neck and left arm pain. Denies any chest pain or shortness of breath. She was sent in for further evaluation. (Chris Mccallum) Past History Travel History Traveled to [place] past 21 day No Medical History Any Pertinent Medical History? 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 anemia patient was treated with multiple rounds of rituximab infusion the multiple rounds of rituximab infusion the last one was on July 2015 Musculoskeletal: LEFT HIP FRACTURE 2016 LEFT HIP DISLOCATION X 2 Psychiatric: anxiety, depression Endocrine: NONE Blood Disorders: NONE Cancer(s): NONE 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 . FATHER FATHER (Liver and lung cancer). . MOTHER MOTHER (Alcoholism and pheochromocytoma). . Relation not specified for: Alcoholism in mother Family hx of lung cancer FH: lung cancer FH: myocardial infarction Hx Contributory? No (Chris Mccallum) Review of Systems Review of Systems Constitutional: Reports: no symptoms. EENTM: Reports: no symptoms. Respiratory: Reports: no symptoms. Cardiovascular: Reports: see HPI. GI: Reports: no symptoms. Genitourinary: Reports: no symptoms. Musculoskeletal: Reports: see HPI. Skin: Reports: no symptoms. Neurological/Psychological: Reports: no symptoms. Hematologic/Endocrine: Reports: no symptoms. Immunologic/Allergic: Reports: no symptoms. All Other Systems: Reviewed and Negative (Chris Mccallum) Physical Exam Physical Exam General Appearance: well developed/nourished, alert, awake Head: atraumatic, normal appearance Eyes: Bilateral: normal appearance, EOMI. Ears, Nose, Throat: normal ENT inspection, hearing grossly normal Neck: normal inspection Respiratory: normal breath sounds, no respiratory distress Cardiovascular: regular rate/rhythm Gastrointestinal: soft Back: normal inspection Extremities: normal inspection, no edema Neurologic/Psych: awake, alert, oriented x 3, normal gait, normal mood/affect Skin: intact, normal color Core Measures ACS in differential dx? Yes CVA/TIA Diagnosis: No Sepsis Present: No Sepsis Focused Exam Completed? No (Chris Mccallum) Progress Differential Diagnoses I considered the following diagnoses in my evaluation of the patient: Hypertensive urgency, hypertensive emergency, KS, unstable angina, renal artery stenosis, Plan of Care: Orders Procedure Date/time Status Heart Healthy Diet 07/07 B Active ED Holding Orders 07/07 1911 Active Admit to inpatient 07/07 1911 Active Vital Signs 07/07 1911 Active Code Status 07/07 1911 Active Telemetry/Yarn Finisher 07/06 1719 Active TROPONIN LEVEL 07/06 1554 Complete COMPREHENSIVE METABOLIC PANEL 07/06 1554 Complete CBC WITHOUT DIFFERENTIAL 07/06 1554 Complete EKG 07/06 1511 Active Current Medications Sig/Jenny Start time Last Medication Dose Stop Time Status Admin Sodium Chloride 1,000 ML ONCE ONE 07/06 1845 AC 07/06 (Normal Saline 0.9%) 07/07 012 191 Laboratory Tests 07/06/17 1725: Anion Gap 10, Estimated GFR 23 L, BUN/Creatinine Ratio 21.0, Glucose 118 H, Calcium 8.7, Total Bilirubin 0.4, AST 15, ALT 21, Alkaline Phosphatase 87, Troponin I 0.01, Total Protein 6.3, Albumin 3.5, Globulin 2.8, Albumin/Globulin Ratio 1.3, CBC w Diff NO MAN DIFF REQ, RBC 3.92 L, MCV 91.0, MCH 30.6, MCHC 33.7, RDW 14.6 H, MPV 7.8, Gran % 67.8, Lymphocytes % 19.3 L, Monocytes % 9.0, Eosinophils % 3.3, Basophils % 0.6, Absolute Granulocytes 4.7, Absolute Lymphocytes 1.3, Absolute Monocytes 0.6, Absolute Eosinophils 0.2, Absolute Basophils 0 Diagnostic Imaging: Viewed by Me: Radiology Read. Discussed w/RAD: Radiology Read. Radiology Impression: PATIENT: MANUEL CURIEL PRESENT AGE: 71 PATIENT ACCOUNT NO: [id number] : 46 LOCATION: [facility] ORDERING PHYSICIAN: Chris AGUILAR SERVICE DATE: 07/06/17 EXAM TYPE : RAD - XRY-CHEST XRAY, TWO VIEWS EXAMINATION: XR CHEST CLINICAL INFORMATION: Chest pain, hypertension. COMPARISON: 07/01/2017. TECHNIQUE: 2 views of the chest were obtained. FINDINGS: The cardiomediastinal silhouette is unchanged with unfolding and tortuosity of the thoracic aorta. The lungs are clear and hyperinflated with flattening of the hemidiaphragms. No consolidation, pulmonary edema, pleural effusion, or pneumothorax. Nipple shadows are unchanged. There are multilevel degenerative changes of the spine without evidence of acute osseous abnormality. IMPRESSION: Stable hyperinflation without acute abnormality. DICTATED BY: Eli Hernandez MD DATE/TIME DICTATED:07/06/171803 SILK WASHING MACHINE OPERATOR:KYLE DATE/TIME TRANSCRIBED:07/06/171803 CONFIDENTIAL, DO NOT COPY WITHOUT APPROPRIATE AUTHORIZATION. <Electronically signed in Other Vendor System> SIGNED BY: Eli Hernandez MD 07/06/171808 Initial ED EKG: normal sinus rhythm, rate (62), nonspecific ST T wave chg (Chris Mccallum) Departure Departure Disposition: STILL A PATIENT Condition: Stable Clinical Impression Primary Impression: Hypertensive urgency Secondary Impressions: Acute kidney injury, Atypical chest pain Referrals: Hugh Gerber MD (PCP/Family) Departure Forms: Customer Survey General Discharge Information Admission Note Spoke With: Robbie Mcguire MD Documentation of Exam: Documentation of any treatments & extenuating circumstances including Concerns Regarding Discharge (functional status, medication knowledge or non-compliance, living conditions, etc.) that warrant an admission rather than observation: Patient will require cardiac telemetry. Serial troponins. Renal consultation. Renal ultrasound. Blood pressure management. High risk. Medically not safe for discharge. IV hydration. Repeat labs. Echocardiogram. (Chris Mccallum) PA/TABLET TECHNICIAN Co-Sign Statement Statement: ED Attending supervision documentation- [X] I saw and evaluated the patient. I have also reviewed all the pertinent lab results and diagnostic results. I agree with the findings and the plan of care as documented in the PA's/TABLET TECHNICIAN's documentation. [X] I have reviewed the ED Record and agree with the PA's/TABLET TECHNICIAN's documentation. [] Additions or exceptions (if any) to the PAs/TABLET TECHNICIAN's note and plan are summarized below: [ACUTE ON CHRONIC RENAL FAILURE, HYPERTENSIE URGENCY, CARDIOLOGY AND NEPHROLOGY CONSULTATION] (Ruby WIN,Hugh Soto) Critical Care Note Critical Care Note Critical Care Time: 30-74 min (35) (Chris Mccallum)
--- NOTE | 2017-07-06 18:09 | RADIOLOGY REPORT ---
EXAMINATION: XR CHEST CLINICAL INFORMATION: Chest pain, hypertension. COMPARISON: 07/01/2017. TECHNIQUE: 2 views of the chest were obtained. FINDINGS: The cardiomediastinal silhouette is unchanged with unfolding and tortuosity of the thoracic aorta. The lungs are clear and hyperinflated with flattening of the hemidiaphragms. No consolidation, pulmonary edema, pleural effusion, or pneumothorax. Nipple shadows are unchanged. There are multilevel degenerative changes of the spine without evidence of acute osseous abnormality. IMPRESSION: Stable hyperinflation without acute abnormality.
--- NOTE | 2017-07-06 21:26 | History & Physical ---
Alvin WIN,[facility] 07/06/172124: General Information and HPI MD Statement: I have seen and personally examined MANUEL CURIEL and documented this H&P. The patient is a 71 year old F who presented with a patient stated chief complaint of [high blood pressure]. Source of Information: patient Exam Limitations: no limitations History of Present Illness: Ms. 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 According to the patient, she has been in her usual state of health but the visiting nurse took her blood pressure today which was 188/90. Patient has a log of her blood pressure readings at home, with highest systolic blood pressure of 150. Patient denies any chest pain, palpitations, headaches, visual changes, slurring of speech, weakness or numbness/tingling in any part of the body, syncope or any recent falls. Also denies any fever/chills, cough, sputum production, recent illness, or taking any [id number] or herbal medications. Only complaining of neck pain and left arm pain that has been going on for 1 week. Patient had a colonoscopy done on July 01 for diarrhea x 1 week, and was sent to the ER after she was found to have an elevated blood pressure (SBP of 230) on that day. She was discharged home after receiving IV antihypertensives and systolic blood pressure down to 170 and outpatient follow up with general car yard supervisor. Off note patient diarrhea has resolved and the colonoscopy remain negative. Patient follows up with Dr. Honeycutt for her CKD, who recently increased her losartan from 50 to 100 mg daily. Patient also admits to taking ibuprofen 600 mg once a day and Aleve 400 mg every 6 hours in the past week, states she is aware that she should not be taking NSAIDs because of her chronic kidney disease. She also has an upcoming appointment with Dr. Vital for hypertension. Allergies/Medications Allergies: Coded Allergies: No Known Allergies (12/05/15) Home Med list Albuterol Sulfate (Proair Hfa) 8.5 GM HFA.AER.AD 2 PUF INH PRN COPD (Reported ) Albuterol Sulfate 2.5 MG/3 ML VIAL.NEB 1 Vial INH/REG PRN COPD (Reported) Amlodipine Besylate 10 MG TABLET 1 TAB PO DAILY HTN (Reported) Carvedilol (Coreg) 25 MG TABLET 1 TAB PO BID htn (Reported) Clonidine HCl 0.1 MG TABLET 1 TAB PO BID BLOOD PRESSURE Furosemide (Lasix) 20 MG TABLET 1 TAB PO DAILY DIURETIC (Reported) Ibuprofen 600 MG TABLET 1 TAB PO Q6PRN PRN pain with food Lorazepam (Ativan) 0.5 MG TABLET 1 TAB PO TID ANXIETY (Reported) Losartan (Cozaar) 100 MG TABLET 1 TAB PO DAILY hypertension (Reported) Oxycodone HCl/Acetaminophen (Percocet 10-325 MG Tablet) 10 MG-325 MG TABLET 1 TAB PO 4 TIMES/DAY PRN severe pain Sertraline HCl (Zoloft) 100 MG TABLET 2 TAB PO DAILY depression (Reported) Trazodone HCl 50 MG TABLET 1 TAB PO QPM PRN insomnia (Reported) Past History Travel History Traveled to [place] past 21 day No Medical History Neurological: TIA 2009 EENT: NONE Cardiovascular: hypertension, hyperlipidemia, PVD Respiratory: bronchitis, COPD Gastrointestinal: NONE Hepatic: hepatitis C, TREATED Renal: chronic kidney disease, proliferative GN Musculoskeletal: osteoporosis, LEFT HIP FRACTURE 2016 LEFT HIP DISLOCATION X 2 Psychiatric: alcohol dependence, anxiety, depression Endocrine: NONE Blood Disorders: NONE Cancer(s): NONE MACHINE SHOP INSPECTOR/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: NONE Other Medical Hx: Cryoglobulinemia History of MRSA: No History of VRE: No History of CDIFF: No Surgical History Surgical History: hernia repair-inguinal, hernia repair-umbilical, HERNIA, VARICOSE VEINS Arterial intervention tonsilloectomy Past Family/Social History Family History Relations & Conditions if any SISTER FATHER MOTHER BROTHER (Myocardial infarction age of 4343 years old). . FATHER FATHER (Liver and lung cancer). . MOTHER MOTHER (Alcoholism and pheochromocytoma). . Relation not specified for: Alcoholism in mother Family hx of lung cancer FH: lung cancer FH: myocardial infarction Psychosocial History Who Do You Live With? self Services at Home: Nursing Primary Language: Kazakh ETOH Use: denies use Illicit Drug Use: denies illicit drug use Living Will? unknown Functional Ability ADLs Independent: dressing, eating, toileting, bathing. Ambulation: independent IADLs Independent: shopping, housework, finances, food prep, telephone. Review of Systems Review of Systems Constitutional: Reports: no symptoms. EENTM: Reports: no symptoms. Cardiovascular: Reports: no symptoms. Respiratory: Reports: no symptoms. GI: Reports: no symptoms. Genitourinary: Reports: no symptoms. Musculoskeletal: Reports: no symptoms. Skin: Reports: no symptoms. Neurological/Psychological: Reports: no symptoms. Hematologic/Endocrine: Reports: no symptoms. Immunologic/Allergic: Reports: no symptoms. All Other Systems: Reviewed and Negative Exam & Diagnostic Data Last 24 Hrs of Vital Signs/I&O Vital Signs Date Time Temp Pulse Resp B/P B/P Pulse O2 O2 Flow FiO2 Mean Ox Delivery Rate 07/07 0045 97.6 68 20 176/78 96 Room Air 07/06 2347 98.2 56 16 149/67 98 Room Air 07/06 2249 97.0 61 20 158/73 98 Room Air 07/06 1943 64 20 180/90 07/06 1937 64 20 180/90 07/06 1931 97 Room Air 07/06 1930 180/98 07/06 1930 97.0 64 20 183/87 98 Room Air 07/06 1912 70 20 189/90 07/06 1817 68 20 189/94 97 Room Air 07/06 1732 186/82 07/06 1701 97.8 61 18 198/102 96 Room Air 07/06 1503 98.5 68 20 172/95 96 Room Air Intake & Output 07/07 0800 07/07 0000 07/06 1600 Intake Total 300 Output Total Balance 300 Intake, Oral 300 Patient 99 lb 0.01 oz 99 lb 0.01 oz Weight Weight Reported by Patient Reported by Patient Measurement Method Physical Exam General Appearance Alert, Oriented X3, Cooperative, No Acute Distress Skin No Rashes, No Breakdown HEENT Atraumatic, PERRLA, EOMI, Mucous Membr. moist/pink Neck Supple, No JVD Cardiovascular Regular Rate, Normal S1, Normal S2 Lungs Clear to Auscultation, Normal Air Movement Abdomen Normal Bowel Sounds, Soft, No Tenderness Extremities No Clubbing, No Cyanosis, No Edema, Normal Pulses Last 24 Hrs of Labs/[place]: Laboratory Tests 07/07/17 0029: Troponin I 0.02 07/06/17 1725: Anion Gap 10, Estimated GFR 23 L, BUN/Creatinine Ratio 21.0, Glucose 118 H, Calcium 8.7, Total Bilirubin 0.4, AST 15, ALT 21, Alkaline Phosphatase 87, Troponin I 0.01, Total Protein 6.3, Albumin 3.5, Globulin 2.8, Albumin/Globulin Ratio 1.3, CBC w Diff NO MAN DIFF REQ, RBC 3.92 L, MCV 91.0, MCH 30.6, MCHC 33.7, RDW 14.6 H, MPV 7.8, Gran % 67.8, Lymphocytes % 19.3 L, Monocytes % 9.0, Eosinophils % 3.3, Basophils % 0.6, Absolute Granulocytes 4.7, Absolute Lymphocytes 1.3, Absolute Monocytes 0.6, Absolute Eosinophils 0.2, Absolute Basophils 0 Diagnostic Data EKG Results NSR Heart rate 62 QTc 415 CXR Results IMPRESSION: Stable hyperinflation without acute abnormality. Assessment/Plan Assessment: Ms. 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 Problem List 1. Hypertensive urgency 2. RIMA on CKD; likely secondary to NSAIDs use 3. Chronic medical conditions - Will admit the patient to telemetry floor - Troponin and EKG 3 to rule out ACS. - Patient received carvedilol 25 mg, clonidine 0.1 mg by mouth and IV hydralazine 5 mg once in the ER. - We will continue carvedilol, clonidine and amlodipine with goal systolic blood pressure of 150-160. - Hold losartan and furosemide(takes as needed for lower extremity edema) because of a RIMA. - Avoid NSAIDs and other nephrotoxic meds. - Discontinue IV fluids which were given in the ER for RIMA. - We will check UA, U tox and urine lytes and obtain renal ultrasound. - Nephrology consult in a.m. - Cardiology consult in a.m. - Echocardiogram in 2014 showing an ejection fraction of 90% and diastolic dysfunction. Repeat Echocardiogram. - Continue rest of the home medications. DVT prophylaxis; subcutaneous heparin Patient is full code As Ranked By This Provider Problem List: 1. Hypertensive urgency 2. Acute on chronic renal failure Core Measures/Misc (01/04) Acute Coronary Syndrome ACS Diagnosis: No Congestive Heart Failure Congestive Heart Failure Diagnosis No Cerebrovascular Accident CVA/TIA Diagnosis: No VTE (View Protocol) VTE Risk Factors Age>40 No Mechanical VTE Prophylaxis d/t N/A MechProphylax Ordered No VTE Pharm Prophylaxis d/t NA PharmProphylax ordered Sepsis (View protocol) Sepsis Present: No Grayson Almeida 07/07/17 0206: Resident Review Statement Resident Statement: examined this patient, discussed with application development intern, agreed with application development intern, discussed with family, reviewed EMR data (avail), discussed with nursing , discussed with case mgmt, reviewed images, amended to note Other Findings: This is a 71-year-old female with past medical history significant for COPD not on home oxygen, hypertension, lower extremity swelling, diastolic dysfunction, depression, anxiety, hyperlipidemia, insomnia, TIA in 2009, hep C status post treatment and undetectable viral load, chronic kidney disease 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 According to the patient, visiting nurse comes every Thursday to check her blood pressure. She was found to have elevated blood pressure today 188/90. She was advised to go to the ER for further evaluation. On the way to ER she reports that she had neck pain, left arm pain. She reports that she had diarrhea 2 weeks prior to the admission, followed up with Dr. Russell, colonoscopy was done on 07/01/2017, she was found to have hypertension SBP 220 during colonoscopy and she was transferred to the emergency room. She was monitored in the emergency room, given IV blood pressure medication, troponin and EKG were monitored, discharged from emergency room. Her carvedilol dose was doubled by her PCP after discharge from ER. Blood pressure log was reviewed, she used to have systolic blood pressure ranging between 130 to 150. However since July 01 her sys blood pressure was ranging in between 170-180. She denies any chest pain, palpitations, short of breath, neck pain or left arm pain. No nausea, vomiting, abdominal pain, focal neurologic deficits, headache, numbness, weakness, sensory changes, gait or vision, speech abnormalities. She offered no complaints in the emergency room. Denies any diarrhea. Patient reports that she quit smoking 52 days back. She smoked all her life one pack per day. Denies alcohol abuse, illicit drug abuse. Last echocardiogram in 2014 showed diastolic dysfunction. Vitals Afebrile, heart rate 64, respiratory rate 20, blood pressure 198/102, saturating at 96 on room air. On exam General Appearance: well developed/nourished, alert, awake Head: atraumatic, normal appearance Neck: normal inspection Respiratory: normal breath sounds, no respiratory distress Cardiovascular: regular rate/rhythm Gastrointestinal: soft, non tender, non distended Extremities: normal inspection, no edema Neurologic/Psych: awake, alert, oriented x 3, normal gait, cranial nerves intact , motor exam, sensory exam within normal limits. Pertinent labs CBC within normal limit BUN 44, creatinine 2.1. LFTs normal Troponin negative Received clonidine 0.1 mg, carvedilol 25, hydralazine IV 5 mg push in the emergency room. Chest x-ray no acute cardiopulmonary findings EKG sinus rhythm, rate 65, left anterior fascicular block, T-wave inversion in V2, bifid P waves ------- 1. Hypertensive urgency Patient presented with high blood pressure 188/90, 198/102. Denies any signs and symptoms suggestive of hypertensive emergency like head injury, focal neurologic deficits, stroke, vision abnormalities, seizures, nausea, vomiting, chest discomfort, acute severe back pain, dyspnea. She is hemodynamically stable except for hypertensive urgency. Troponin and EKG was negative. We will admit her to telemetry for management of hypertension. * Admit to telemetry * Monitor vitals every shift * Continue home medication amlodipine 10 mg daily * Carvedilol 25 mg twice daily * Clonidine 0.1 twice daily * Hold losartan 100 mg in a.m. given acute kidney injury with creatinine 2.1 * Consider going up on carvedilol if required based on her blood pressure. Can try oral hydralazine if required too. * Serial troponin and EKG * Cardiology consult in a.m. * The blood pressure should be lowered to <160/<100 mmHg. In the long-term, the blood pressure should be reduced further ( <140/<90 mmHg ). 2. Acute kidney injury on CKD Recent has chronic kidney disease from proliferative glomerular nephritis, biopsy-proven, secondary to hep C with cryoglobulinemia. His baseline creatinine was varying between 1.5-1.7. Of note patient reports that she is taking Advil 2 tablets every 6 hours for last 1 week and ibuprofen twice daily. * Acute worsening of creatinine most possibly from NSAID use. * We will hold her home medications Lasix 20 daily * Hold losartan * Patient received IV gentle hydration * Follow-up creatinine in the a.m. * Nephro consult in a.m. * Follow-up urine analysis, U tox, urine lites. * Will get records from her nephrology office. She usually follows up with Dr. Suarez as an outpatient. 3. COPD not on home oxygen- continue inhalers as needed. TRC nebs. 4. Chronic diastolic dysfunction-hold Lasix 20 daily given RIMA 5. Depression continue Zoloft 200 mg daily. 6. Insomnia continue trazodone 50 mg at bedtime as needed 7. Anxiety continue 1 mg Ativan 3 times a day when necessary. 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 Patient recently underwent colonoscopy on July 01 for evaluation of diarrhea. Colonoscopy was essentially negative (with negative path), but post procedure she was noted to be hypertensive (SBP 230's) and was sent to the ER for evaluation. Patient was asymptomatic, workup was negative and she was discharged home. Based on her BP log, it has been elevated (SB 170-180's) in the past few days. PCP Dr. Gerber suggested patient to increase coreg to 25 mg BID. Her diarrhea has almost resolved since as well. Currently, patient denies chest pain, dyspnea, palpitations, headache, vision changes or lightheadedness. She does report left neck and arm pain, but when asked she states this has been persistent for past 7 days after she opened a bottle of peptobismol. Patient reports compliance with her BP medications. She does report using Aleve and Advil often (about 2-3 times every day) for the past few months for aches/pains. She is noncompliant with dietary restrictions, drinks a lot of soda. She is aware that these affect her kidneys and BP. Vitals stable exacept for BP 198/102 --> 180/90 --> 149/67. Exam as above. Labs: BUN 44, creat 2.1 (baseline 1.3 1.5), trop neg. CXR: neg. EKG: sinus rhythm, LAFB, Qtc 415. Echo (2014): EF 90%, impaired LV relaxation, mild pulmonary hypertension, moderate LVH. Assessment and plan: 1. Hypertensive urgency 2. Left neck/ arm pain - nonspecific, resolved. 3. RIMA on CKD in the setting of NSAID use, combined with diuretic/ARB use and diarrhea 4. History of glomerulonephritis, Hep C and cryoglobulinemia 5. Severe anxiety - Admit to Telemetry - Monitor for arrhythmias - Serial EKG and troponin - Obtain Echo, Cardio consult (patient was scheduled to see dr. Vital) - Resume home meds amlodipine, clonidine and carvedilol - Maintain SBP ~ 160's overnight - Hold losartan and lasix due to RIMA - Avoid nephrotoxic meds - Check urinalysis, urine lytes - Patient has received IV fluids in the ER, can give very gentle hydration as BP allos - Trend renal functions - Obtain - Nephro consult - Patient is tearful when she declares that she has been taking NSAIDs and does not follow her diet. Continue ativan for anxiety. DVT ppx Hep SC. Full code.
[2017-07-06] MEDS ORDERED: COREG25 M1 PO (22:26)
[2017-07-06] MEDS ORDERED: COZAAR100 M1 PO (22:28)
[2017-07-06] MEDS ORDERED: ZOLOFT100 M1 PO (22:32)
[2017-07-06] MEDS ORDERED: TRAZODONE HCL50 M1 PO (22:33)
[2017-07-07] VITALS (9 sets, daily range): BP systolic 124–200; BP diastolic 60–100
--- NOTE | 2017-07-07 05:10 | Admission Certification ---
Admission Certification Certification Statement - As attending physician, I certify that at the time of - admission, based on clinical presentation, severity of - symptoms, need for further diagnostic testing and - therapeutic interventions, and risk of adverse outcomes - without in-hospital treatment, in my clinical assessment, - this patient requires an acute hospital stay for a minimum - of two nights or longer. I have also considered psychsocial - factors such as support system, advanced age, financial - issues, cognitive issues, and failed out-patient treatments, - past re-admission history, safety of patient, and lack of - compliance as applicable. Specific rationale supporting this admission is: Hypertensive urgency, RIMA on CKD in the setting of NSAID use.
--- NOTE | 2017-07-07 07:23 | PN- Housestaff ---
Arcenio WIN,[facility] 07/07/17 0723: Subjective Follow-up For: HTN urgency Subjective: Patient states she only had htn after her colonoscopy, the day after procedure and yesterday. Usually her bp runs 120-130s systolic otherwise. Continues to have neck pain which is improved. Still has some slight arm pain but feels fine. No dark urine or blood in he rurine. Was tearful this AM as she has depression and anxiety due to recent personal losses. States that she has no been watching her salt/diet due to her depression and she has been drinking soda. Was supposed to see Dr. Vital today for HTN. States she stopped drinking etoh 6 yrs ago and quit smoking 51 days ago. Review of Systems Constitutional: Reports: see HPI. Objective Last 24 Hrs of Vital Signs/I&O Vital Signs Date Time Temp Pulse Resp B/P B/P Pulse O2 O2 Flow FiO2 Mean Ox Delivery Rate 07/08 2115 58 152/78 07/07 2116 58 152/78 07/07 2116 58 152/78 07/07 1607 58 156/88 07/07 1600 Room Air 07/07 1417 124/70 07/07 1417 98.9 56 18 124/70 94 Room Air 07/07 1245 124/60 07/07 1053 Room Air 07/07 1008 73 194/84 07/07 1008 73 194/84 07/07 0842 194/84 07/07 0657 98.1 63 20 200/96 94 Room Air 07/07 0647 60 182/90 07/07 0545 54 192/90 07/07 0521 54 200/100 07/07 0511 68 200/100 07/07 0045 97.6 68 20 176/78 96 Room Air 07/06 2347 98.2 56 16 149/67 98 Room Air 07/06 2249 97.0 61 20 158/73 98 Room Air Intake & Output 07/07 1600 07/07 0800 07/07 0000 Intake Total 480 240 300 Output Total 500 700 Balance -20 -460 300 Intake, Oral 480 240 300 Output, Urine 500 700 Patient 99 lb 0.01 oz Weight Weight Reported by Patient Measurement Method Physical Exam General Appearance: Alert, Oriented X3, Cooperative, Patient tearful when talking about losing her , friend. neighbor also in the hospital HEENT: PERRLA, EOMI, no neck tenderness Cardiovascular: Regular Rate, Normal S1, Normal S2 Lungs: Normal Air Movement, basilar crackles Abdomen: Normal Bowel Sounds, Soft, No Tenderness Extremities: RLE back muscle contracted/tight. tender to palpation, no cva or spinal tenderness Vascular: 2+ radial pulses Current Medications: Current Medications Sig/Jenny Start time Last Medication Dose Route Stop Time Status Admin Acetaminophen 650 MG Q6P PRN 07/06 2200 AC PO Albuterol Sulfate 2 PUF Q4P PRN 07/06 2230 AC INH Alprazolam 0.25 MG TID 07/07 2200 AC 07/07 PO 2112 Alprazolam 0.5 MG TID 07/07 1000 DC 07/07 PO 07/14 0959 1605 Amlodipine Besylate 10 MG DAILY 07/07 1000 AC 07/07 PO 0521 Carvedilol 25 MG BID 07/07 1000 AC 07/07 PO 2116 Clonidine 0.1 MG BID 07/07 1000 AC 07/07 PO 2116 Heparin Sodium 5,000 UNIT Q8 07/07 0600 AC 07/07 (Porcine) SC 2112 Hydralazine HCl 10 MG TID 07/07 1000 AC PO Hydralazine HCl 5 MG ONCE ONE 07/07 0530 CAN IV 07/07 0531 Lorazepam 0.5 MG TID 07/07 1000 DC PO 07/14 0959 Lorazepam 0.5 MG TID PRN 07/07 0245 DC 07/07 PO 07/14 0232 0600 Patient Medication 1 ED ONE ONE 07/07 1700 DC Teaching ED 07/07 1701 Sertraline HCl 200 MG DAILY 07/07 1000 AC 07/07 PO 1008 Sodium Chloride 1,000 ML ONCE ONE 07/06 1845 DC 07/06 IV 07/07 0124 1912 Trazodone HCl 50 MG .STK-MED ONE 07/07 0058 DC PO 07/07 0059 Trazodone HCl 50 MG QPM PRN 07/06 2245 AC 07/07 PO 2120 Last 24 Hrs of Lab/[place] Results Last 24 Hrs of Labs/Mics: Laboratory Tests 07/07/17 0647: Anion Gap 11, Estimated GFR 25 L, BUN/Creatinine Ratio 21.5, Troponin I 0.02, CBC w Diff NO MAN DIFF REQ, RBC 3.58 L, MCV 90.5, MCH 30.9, MCHC 34.1, RDW 14.7 H, MPV 8.6, Gran % 60.3, Lymphocytes % 24.4, Monocytes % 9.7 H, Eosinophils % 4.8, Basophils % 0.8, Absolute Granulocytes 3.4, Absolute Lymphocytes 1.4, Absolute Monocytes 0.5, Absolute Eosinophils 0.3, Absolute Basophils 0 07/07/17 0525: Urinalysis LIGHT H, Urine Color STRAW, Urine Clarity CLEAR, Urine pH 6.0, Ur Specific Bourg 1.015, Urine Protein 100 H, Urine Ketones NEG, Urine Nitrite NEG, Urine Bilirubin NEG, Urine Urobilinogen 0.2, Ur Leukocyte Esterase NEG, Ur Microscopic SEDIMENT EXAMINED, Urine WBC RARE, Ur Epithelial Cells MOD H, Urine Mucus FEW, Urine Hemoglobin NEG, Urine Glucose NEG 07/07/17 0525: Urine Opiates Screen < 100, Methadone Screen < 40, Barbiturate Screen < 60, Ur Phencyclidine Scrn < 6.00, Amphetamines Screen < 100, U Benzodiazepines Scrn < 85, Urine Cocaine Screen < 50, Urine Cannabis Screen < 5.00, Ur Random Creatinine 51.5, Ur Random Sodium 33, Ur Random Potassium 14.0, Fraction Sodium Excret 1.0 07/07/17 0029: Troponin I 0.02 Assessment/Plan Assessment: A: Ms. 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 #Hypertensive urgency Trops .01, then .02x2 CXR: Stable hyperinflation without acute abnormality. UA, utox, urine lytes unremarkable Echo: EF >60% with stage 1 diastolic dysfunction -patient swtiched from lorazepam to xanax today, BP dropped from 190-200s systolic to 124/70 -dereased xanax from .5 TID scheduled to .25 -BP goal 150-160s systolic -cont clonidine, coreg, amlodipine -cont 10mg hydralazine if BP allows. cards recommends 25mg TID but did not increase due to BP improvement -resume losartan tomorrow if Cr stable #depression Declined psych eval as she will f/u with psych outpatient -cont sertraline, trazodone #RIMA on CKD; likely secondary to NSAIDs use Cr 2.1 -patient advised not to use NSAIDS -cont monitor ing renal function -restart losartan if Cr stable tomorrow #DVT prophylaxis - subq heparin #FULL CODE Problem List: 1. Hypertensive urgency 2. RIMA (acute kidney injury) 3. Depression Pain Ratin Pain Location: RLE back, arm Pain Goal: Pain 4 or less Pain Plan: pain pathway Tomorrow's Labs & Rationales: cbc bep Artis Khan 07/07/17 1541: Attending MD Review Statement Attending Statement Attending MD Statement: examined this patient, discuss w/resident/PA/ACCOUNT MANAGER B2B, agreed w/resident/PA/ACCOUNT MANAGER B2B, reviewed EMR data (avail), discussed with nursing, discussed with case mgmt Attending Assessment/Plan: Pt seen and examined. Pts bp is better controlled now. Pt encouraged to be complaint with her meds. Will f/u on cr and see if her RIMA is resolving by tomorrow. Pt was told not to use NSAIDS. If her cr is improving and bp stays controlled will plan for dc tomorrow.
[2017-07-07 08:28] LABS: ABSOLUTE BASOPHIL COUNT 0 /CUMM (0.0-0.2); ABSOLUTE EOSINOPHIL COUNT 0.3 /CUMM (0.0-0.7); ABSOLUTE GRANULOCYTE CT 3.4 /CUMM (1.4-6.5); ABSOLUTE LYMPH COUNT 1.4 /CUMM (1.2-3.4); ABSOLUTE MONOCYTE COUNT 0.5 /CUMM (0.10-0.60); BASOPHIL % 0.8 % (0.0-2.0); EOSINOPHIL % 4.8 % (0-5); GRANULOCYTE % 60.3 % (42.2-75.2); HEMATOCRIT 32.4 % (37-47); MEAN CORPUSCULAR HGB 30.9 PG (27.0-31.0); MEAN CORPUSCULAR HGB CONC 34.1 G/DL (33.0-37.0); MEAN CORPUSCULAR VOLUME 90.5 FL (81.0-99.0); MEAN PLATELET VOLUME 8.6 FL (7.4-10.4); PLATELET COUNT 219 /CUMM (130-400); RBC DISTRIBUTION WIDTH 14.7 % (11.5-14.5); RED BLOOD CELL CT 3.58 /CUMM (4.20-5.40); WHITE BLOOD CELL COUNT 5.7 /CUMM (4.8-10.8)
--- NOTE | 2017-07-07 09:35 | Cons- Cardiology ---
General Information and HPI Consulting Request Date of Consult: 07/07/17 Requested By: Artis Khan MD Reason for Consult: Hypertensive urgency History of Present Illness: The patient is a 71-year-old female with history of hypertension, hyperlipidemia , COPD, TIA, hepatitis C, and peripheral vascular disease who was found by her visiting nurse to have severely elevated blood pressure. She complains of left neck and arm pain which has been present for 7 days. No chest pain. No shortness of breath. No palpitations. No visual changes. No headache. No lightheadedness or dizziness. No nausea or vomiting. No syncope. She had a recent colonoscopy on July 01, and postprocedure she was noted to have systolic blood pressure in the 230s. She was noted on presentation to have severely elevated blood pressure and evidence of acute kidney injury. The acute kidney injury is felt to be possibly secondary to use of NSAID's. She has been referred to me as an outpatient for evaluation of her hypertension, and she has an appointment scheduled in 2 weeks. Her losartan has been placed on hold because of the acute kidney injury. Allergies/Medications Allergies: Coded Allergies: No Known Allergies (12/05/15) Home Med List: Albuterol Sulfate (Proair Hfa) 8.5 GM HFA.AER.AD 2 PUF INH PRN COPD (Reported ) Albuterol Sulfate 2.5 MG/3 ML VIAL.NEB 1 Vial INH/REG PRN COPD (Reported) Amlodipine Besylate 10 MG TABLET 1 TAB PO DAILY HTN (Reported) Carvedilol (Coreg) 25 MG TABLET 1 TAB PO BID htn (Reported) Clonidine HCl 0.1 MG TABLET 1 TAB PO BID BLOOD PRESSURE Furosemide (Lasix) 20 MG TABLET 1 TAB PO DAILY DIURETIC (Reported) Ibuprofen 600 MG TABLET 1 TAB PO Q6PRN PRN pain with food Lorazepam (Ativan) 0.5 MG TABLET 1 TAB PO TID ANXIETY (Reported) Losartan (Cozaar) 100 MG TABLET 1 TAB PO DAILY hypertension (Reported) Oxycodone HCl/Acetaminophen (Percocet 10-325 MG Tablet) 10 MG-325 MG TABLET 1 TAB PO 4 TIMES/DAY PRN severe pain Sertraline HCl (Zoloft) 100 MG TABLET 2 TAB PO DAILY depression (Reported) Trazodone HCl 50 MG TABLET 1 TAB PO QPM PRN insomnia (Reported) Current Medications: Current Medications Sig/Jenny Start time Last Medication Dose Route Stop Time Status Admin Acetaminophen 650 MG Q6P PRN 07/06 2200 AC PO Albuterol Sulfate 2 PUF Q4P PRN 07/06 2230 AC INH Alprazolam 0.5 MG TID 07/07 1000 AC 07/07 PO 07/14 0959 1007 Amlodipine Besylate 10 MG DAILY 07/07 1000 AC 07/07 PO 0521 Carvedilol 25 MG BID 07/07 1000 AC 07/07 PO 1008 Carvedilol 25 MG ONCE ONE 07/06 1914 DC 07/06 PO 07/07 1915 194 Clonidine 0.1 MG BID 07/07 1000 AC 07/07 PO 1008 Clonidine 0 .STK-MED ONE 07/06 1940 DC PO Clonidine 0.1 MG ONCE ONE 07/06 1914 DC 07/06 PO 07/07 1915 193 Heparin Sodium 5,000 UNIT Q8 07/07 0600 AC 07/07 (Porcine) SC 0514 Hydralazine HCl 10 MG TID 07/07 1000 AC PO Hydralazine HCl 5 MG ONCE ONE 07/07 0530 CAN IV 07/07 0531 Hydralazine HCl 0 .STK-MED ONE 07/06 1907 DC .ROUTE Hydralazine HCl 5 MG ONCE ONE 07/06 1830 DC 07/06 IV 07/06 183 191 Lorazepam 0.5 MG TID 07/07 1000 DC PO 07/14 0959 Lorazepam 0.5 MG TID PRN 07/07 0245 DC 07/07 PO 07/14 0232 0600 Lorazepam 0 .STK-MED ONE 07/06 204 DC PO Lorazepam 1 MG ONE ONE 07/06 204 DC 07/06 PO 07/06 204 204 Sertraline HCl 200 MG DAILY 07/07 1000 AC 07/07 PO 1008 Sodium Chloride 1,000 ML ONCE ONE 07/06 1845 DC 07/06 IV 07/07 0124 1912 Trazodone HCl 50 MG QPM PRN 07/06 2245 AC 07/07 PO 0100 Review of Systems Review of Systems: No fever. No chills. No rash. No tremor. No hemoptysis. All other systems were reviewed, and were noted to be negative. Past History Travel History Traveled to [place] past 21 day No Medical History Blood Transfusion Hx: Yes Type of Reaction: GOT HEPATITIS C Neurological: TIA 2009 EENT: NONE Cardiovascular: hypertension, hyperlipidemia, PVD Respiratory: bronchitis, COPD Gastrointestinal: NONE Hepatic: hepatitis C, TREATED Renal: chronic kidney disease, proliferative GN Musculoskeletal: osteoporosis, LEFT HIP FRACTURE 2016 LEFT HIP DISLOCATION X 2 Psychiatric: alcohol dependence, anxiety, depression Endocrine: NONE Blood Disorders: NONE Cancer(s): NONE ICE SKATER/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: NONE Other Medical Hx: Cryoglobulinemia Surgical History Surgical History: hernia repair-inguinal, hernia repair-umbilical, HERNIA, VARICOSE VEINS Arterial intervention tonsilloectomy LEFT HIP Family History Relations & Conditions If Any: SISTER FATHER MOTHER BROTHER (Myocardial infarction age of 4343 years old). . FATHER FATHER (Liver and lung cancer). . MOTHER MOTHER (Alcoholism and pheochromocytoma). . Relation not specified for: Alcoholism in mother Family hx of lung cancer FH: lung cancer FH: myocardial infarction Psychosocial History Where Do You Live? Home Who Do You Live With? self Services at Home: Nursing Primary Language: Indonesian Smoking Status: Former Smoker ETOH Use: denies use Illicit Drug Use: denies illicit drug use Living Will? unknown Functional Ability ADLs Independent: dressing, eating, toileting, bathing. Ambulation: independent IADLs Independent: shopping, housework, finances, food prep, telephone. Exam & Diagnostic Data Vital Signs and I&O Vital Signs Date Time Temp Pulse Resp B/P B/P Pulse O2 O2 Flow FiO2 Mean Ox Delivery Rate 07/07 1053 Room Air 07/07 1008 73 194/84 07/07 1008 73 19484 07/07 0842 19407/07 0657 98.1 63 20 200/96 94 Room Air 07/07 0647 60 182/90 07/07 0545 54 192/90 07/07 0521 54 200/100 07/07 0511 68 200/100 07/07 0045 97.6 68 20 176/78 96 Room Air 07/06 2347 98.2 56 16 149/67 98 Room Air 07/06 2249 97.0 61 20 158/73 98 Room Air 07/06 1943 64 20 180/90 07/06 1937 64 20 180/90 07/06 1931 97 Room Air 07/06 1930 180/98 07/06 1930 97.0 64 20 183/87 98 Room Air 03/19 1912 70 20 189/90 07/06 1817 68 20 189/94 97 Room Air 07/06 1732 186/82 07/06 1701 97.8 61 18 198/102 96 Room Air 07/06 1503 98.5 68 20 172/95 96 Room Air Intake & Output 07/07 1600 07/07 0800 07/07 0000 07/06 1600 07/06 0800 07/06 0000 Intake Total 240 300 Output Total 500 700 Balance -500 -460 300 Intake, Oral 240 300 Output, Urine 500 700 Patient 99 lb 0.01 oz 99 lb 0.01 oz Weight Weight Reported by Patient Reported by Patient Measurement Method Physical Exam: Gen: The patient is in no acute distress HEENT: Normal nose, ears, and oropharynx. Pupils equal bilaterally. Conjunctiva normal. Neck: Supple with no JVD, no masses, and no thyromegaly Lungs: Clear to auscultation with normal respiratory effort Heart: RRR, S1, S2, no murmurs. No peripheral edema, 2+ pulses in the lower extremities bilaterally Abdomen: Soft, nontender, no masses. No hepatomegaly. No splenomegaly Extremities: No clubbing or cyanosis. Normal muscle strength in the upper and lower extremities Skin: Normal skin turgor with no skin ulcers or lesions noted. Neuro: Cranial nerves intact. Sensation intact Psych: Alert and oriented x 3 with appropriate affect Labs/[place] Results: Laboratory Tests 07/07 07/07 0647 0525 Chemistry Sodium (137 - 145 mmol/L) 137 Potassium (3.5 - 5.1 mmol/L) 4.2 Chloride (98 - 107 mmol/L) 104 Carbon Dioxide (22 - 30 mmol/L) 22 Anion Gap (5 - 16) 11 BUN (7 - 17 mg/dL) 43 H Creatinine (0.5 - 1.0 mg/dL) 2.0 H Estimated GFR (>60 ml/min) 25 L BUN/Creatinine Ratio (7 - 25 %) 21.5 Troponin I (< 0.11 ng/ml) 0.02 Hematology CBC w Diff NO MAN DIFF REQ WBC (4.8 - 10.8 /CUMM) 5.7 RBC (4.20 - 5.40 /CUMM) 3.58 L Hgb (12.0 - 16.0 G/DL) 11.1 L Hct (37 - 47 %) 32.4 L MCV (81.0 - 99.0 FL) 90.5 MCH (27.0 - 31.0 PG) 30.9 MCHC (33.0 - 37.0 G/DL) 34.1 RDW (11.5 - 14.5 %) 14.7 H Plt Count (130 - 400 /CUMM) 219 MPV (7.4 - 10.4 FL) 8.6 Gran % (42.2 - 75.2 %) 60.3 Lymphocytes % (20.5 - 51.1 %) 24.4 Monocytes % (1.7 - 9.3 %) 9.7 H Eosinophils % (0 - 5 %) 4.8 Basophils % (0.0 - 2.0 %) 0.8 Absolute Granulocytes (1.4 - 6.5 /CUMM) 3.4 Absolute Lymphocytes (1.2 - 3.4 /CUMM) 1.4 Absolute Monocytes (0.10 - 0.60 /CUMM) 0.5 Absolute Eosinophils (0.0 - 0.7 /CUMM) 0.3 Absolute Basophils (0.0 - 0.2 /CUMM) 0 Urines Urinalysis LIGHT H Urine Color (YEL,AMB,STR) STRAW Urine Clarity (CLEAR) CLEAR Urine pH (5.0 - 8.0) 6.0 Ur Specific Mcpherson (1.001 - 1.035) 1.015 Urine Protein (NEG,<30 MG/DL) 100 H Urine Ketones (NEG) NEG Urine Nitrite (NEG) NEG Urine Bilirubin (NEG) NEG Urine Urobilinogen (0.1 - 1.0 EU/dl) 0.2 Ur Leukocyte Esterase (NEG) NEG Ur Microscopic SEDIMENT EXAMINED Urine WBC (0 - 2 /HPF) RARE Ur Epithelial Cells (NONE,FEW) MOD H Urine Mucus (FEW,NONE) FEW Urine Hemoglobin (NEG) NEG Urine Glucose (N MG/DL) NEG 07/07 07/07 07/06 0525 0029 1725 Chemistry Sodium (137 - 145 mmol/L) 137 Potassium (3.5 - 5.1 mmol/L) 3.9 Chloride (98 - 107 mmol/L) 102 Carbon Dioxide (22 - 30 mmol/L) 25 Anion Gap (5 - 16) 10 BUN (7 - 17 mg/dL) 44 H Creatinine (0.5 - 1.0 mg/dL) 2.1 H Estimated GFR (>60 ml/min) 23 L BUN/Creatinine Ratio (7 - 25 %) 21.0 Glucose (65 - 99 mg/dL) 118 H Calcium (8.4 - 10.2 mg/dL) 8.7 Total Bilirubin (0.2 - 1.3 mg/dL) 0.4 AST (14 - 36 U/L) 15 ALT (9 - 52 U/L) 21 Alkaline Phosphatase (<127 U/L) 87 Troponin I (< 0.11 ng/ml) 0.02 0.01 Total Protein (6.3 - 8.2 g/dL) 6.3 Albumin (3.5 - 5.0 g/dL) 3.5 Globulin (1.9 - 4.2 gm/dL) 2.8 Albumin/Globulin Ratio (1.1 - 2.2 %) 1.3 Hematology CBC w Diff NO MAN DIFF REQ WBC (4.8 - 10.8 /CUMM) 6.9 RBC (4.20 - 5.40 /CUMM) 3.92 L Hgb (12.0 - 16.0 G/DL) 12.0 Hct (37 - 47 %) 35.7 L MCV (81.0 - 99.0 FL) 91.0 MCH (27.0 - 31.0 PG) 30.6 MCHC (33.0 - 37.0 G/DL) 33.7 RDW (11.5 - 14.5 %) 14.6 H Plt Count (130 - 400 /CUMM) 243 MPV (7.4 - 10.4 FL) 7.8 Gran % (42.2 - 75.2 %) 67.8 Lymphocytes % (20.5 - 51.1 %) 19.3 L Monocytes % (1.7 - 9.3 %) 9.0 Eosinophils % (0 - 5 %) 3.3 Basophils % (0.0 - 2.0 %) 0.6 Absolute Granulocytes (1.4 - 6.5 /CUMM) 4.7 Absolute Lymphocytes (1.2 - 3.4 /CUMM) 1.3 Absolute Monocytes (0.10 - 0.60 /CUMM) 0.6 Absolute Eosinophils (0.0 - 0.7 /CUMM) 0.2 Absolute Basophils (0.0 - 0.2 /CUMM) 0 Toxicology Urine Opiates Screen (>2000 NG/ML) < 100 Methadone Screen (>300 NG/ML) < 40 Barbiturate Screen (>200 NG/ML) < 60 Ur Phencyclidine Scrn (>25 NG/ML) < 6.00 Amphetamines Screen (>1000 NG/ML) < 100 U Benzodiazepines Scrn (>200 NG/ML) < 85 Urine Cocaine Screen (>300 NG/ML) < 50 Urine Cannabis Screen (>50 NG/ML) < 5.00 Urines Ur Random Creatinine (mg/dL) 51.5 Ur Random Sodium (30 - 90 mmol/L) 33 Ur Random Potassium (mmol/L) 14.0 Fraction Sodium Excret (<1% %) 1.0 Diagnostic Data EKG Results EKG tracing is independently reviewed, and reveals normal sinus rhythm at 55 on the left axis deviation, left ventricular hypertrophy CXR Results The cardiomediastinal silhouette is unchanged with unfolding and tortuosity of the thoracic aorta. The lungs are clear and hyperinflated with flattening of the hemidiaphragms. No consolidation, pulmonary edema, pleural effusion, or pneumothorax. Nipple shadows are unchanged. There are multilevel degenerative changes of the spine without evidence of acute osseous abnormality. Other Results Echocardiogram 10/19/14 1. Hyperdynamic EF of 90% with impaired LV relaxation. 2. Moderate left ventricular hypertrophy. 3. Mild tricuspid regurgitaiton. 4. Trace to mild pulmonic regurgitation. 5. Mild pulmonary hypertension. 6. Trace pericardial effusion. Assessment/Plan Assessment/Plan The patient is a 71-year-old female with history of TIA, hypertension, COPD, and hepatitis C who is scheduled to see me in the office for hypertension. She is admitted with acute kidney injury and uncontrolled hypertension. She complains of discomfort in her left neck and left arm. Myocardial infarct has been ruled out with negative troponin 3. Losartan has been placed on hold because of the acute kidney injury, and the blood pressure is significantly elevated today. Recommendations: * Echocardiogram pending * Continue clonidine, carvedilol, and amlodipine for blood pressure control * Increase hydralazine to 25 mg p.o. 3 times daily for additional blood pressure control * Losartan is on hold for acute kidney injury, and should be restarted once cleared by nephrology Consult Acknowledgment - Thank you for your consult request.
--- NOTE | 2017-07-07 11:07 | Cons- Nephrology ---
General Information and HPI Consulting Request Date of Consult: 07/07/17 Requested By: Artis Khan MD History of Present Illness: Ms. Wolfe is a pleasant 71 yo [address] followed by Dr[address] Gee. She had biopsy proven cryoglobunemia with RIMA (Cr in low 2's). She was nephrotic at the time and was treated with Sovaldi with resolution of the hepatitis C and nephrotic proteinuria. Recent creatinine has been in the mid 1's (1.3-1.4). She underwent colonoscopy last Thursday (Suprep prep) and has been taking Aleve daily for headache. She recently had losartan increased to 100 mg for HTN and came in for high BP by visiting nurse. On admission she was found to have RIMA with a creatinine of 2.0. s Allergies/Medications Allergies: Coded Allergies: No Known Allergies (12/05/15) Home Med List: Albuterol Sulfate (Proair Hfa) 8.5 GM HFA.AER.AD 2 PUF INH PRN COPD (Reported ) Albuterol Sulfate 2.5 MG/3 ML VIAL.NEB 1 Vial INH/REG PRN COPD (Reported) Amlodipine Besylate 10 MG TABLET 1 TAB PO DAILY HTN (Reported) Carvedilol (Coreg) 25 MG TABLET 1 TAB PO BID htn (Reported) Clonidine HCl 0.1 MG TABLET 1 TAB PO BID BLOOD PRESSURE Furosemide (Lasix) 20 MG TABLET 1 TAB PO DAILY DIURETIC (Reported) Ibuprofen 600 MG TABLET 1 TAB PO Q6PRN PRN pain with food Lorazepam (Ativan) 0.5 MG TABLET 1 TAB PO TID ANXIETY (Reported) Losartan (Cozaar) 100 MG TABLET 1 TAB PO DAILY hypertension (Reported) Oxycodone HCl/Acetaminophen (Percocet 10-325 MG Tablet) 10 MG-325 MG TABLET 1 TAB PO 4 TIMES/DAY PRN severe pain Sertraline HCl (Zoloft) 100 MG TABLET 2 TAB PO DAILY depression (Reported) Trazodone HCl 50 MG TABLET 1 TAB PO QPM PRN insomnia (Reported) Current Medications: Current Medications Sig/Jenny Start time Last Medication Dose Route Stop Time Status Admin Acetaminophen 650 MG Q6P PRN 07/060 AC PO Albuterol Sulfate 2 PUF Q4P PRN 07/06 2230 AC INH Alprazolam 0.5 MG TID 07/07 1000 AC 07/07 PO 07/14 0959 1007 Amlodipine Besylate 10 MG DAILY 07/07 1000 AC 07/07 PO 0521 Carvedilol 25 MG BID 07/07 1000 AC 07/07 PO 1008 Carvedilol 25 MG ONCE ONE 07/06 1914 DC 07/06 PO 07/07 1915 194 Clonidine 0.1 MG BID 07/07 1000 AC 07/07 PO 1008 Clonidine 0 .STK-MED ONE 07/06 194 DC PO Clonidine 0.1 MG ONCE ONE 07/06 1914 DC 07/06 PO 07/07 1915 193 Heparin Sodium 5,000 UNIT Q8 07/07 0600 AC 07/07 (Porcine) SC 0514 Hydralazine HCl 10 MG TID 07/07 1000 AC PO Hydralazine HCl 5 MG ONCE ONE 07/07 0530 CAN IV 07/07 0531 Hydralazine HCl 0 .STK-MED ONE 07/06 1907 DC .ROUTE Hydralazine HCl 5 MG ONCE ONE 07/06 1830 DC 07/06 IV 07/06 183 1912 Lorazepam 0.5 MG TID 07/07 1000 DC PO 07/14 0959 Lorazepam 0.5 MG TID PRN 07/07 0245 DC 07/07 PO 07/14 0232 0600 Lorazepam 0 .STK-MED ONE 07/06 204 DC PO Lorazepam 1 MG ONE ONE 07/06 2045 DC 07/06 PO 07/06 204 204 Sertraline HCl 200 MG DAILY 07/07 1000 AC 07/07 PO 1008 Sodium Chloride 1,000 ML ONCE ONE 07/06 1845 DC 07/06 IV 07/07 0124 1912 Trazodone HCl 50 MG QPM PRN 07/06 2245 AC 07/07 PO 0100 Review of Systems Review of Systems: As in HPI otherwise negative Past History Travel History Traveled to [place] past 21 day No Medical History Blood Transfusion Hx: Yes Type of Reaction: GOT HEPATITIS C Neurological: TIA 2010 EENT: NONE Cardiovascular: hypertension, hyperlipidemia, PVD Respiratory: bronchitis, COPD Gastrointestinal: NONE Hepatic: hepatitis C, TREATED Renal: chronic kidney disease, proliferative GN Musculoskeletal: osteoporosis, LEFT HIP FRACTURE 2016 LEFT HIP DISLOCATION X 2 Psychiatric: alcohol dependence, anxiety, depression Endocrine: NONE Blood Disorders: NONE Cancer(s): NONE APPLICATIONS INTERN/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: NONE Other Medical Hx: Cryoglobulinemia Surgical History Surgical History: hernia repair-inguinal, hernia repair-umbilical, HERNIA, VARICOSE VEINS Arterial intervention tonsilloectomy LEFT HIP Family History Relations & Conditions If Any: SISTER FATHER MOTHER BROTHER (Myocardial infarction age of 4343 years old). . FATHER FATHER (Liver and lung cancer). . MOTHER MOTHER (Alcoholism and pheochromocytoma). . Relation not specified for: Alcoholism in mother Family hx of lung cancer FH: lung cancer FH: myocardial infarction Psychosocial History Where Do You Live? Home Who Do You Live With? self Services at Home: Nursing Primary Language: Belarusian Smoking Status: Former Smoker ETOH Use: denies use Illicit Drug Use: denies illicit drug use Living Will? unknown Functional Ability ADLs Independent: dressing, eating, toileting, bathing. Ambulation: independent IADLs Independent: shopping, housework, finances, food prep, telephone. Exam & Diagnostic Data Vital Signs and I&O Pleasant F NAD 194/84 73 98.1 Skin neg rash Eyes anicteric ENT moist Lungs clear to A Cor RRR Abd soft N/T Ext neg edema Results Pertinent Lab Results: 137 / 114 / 43 / 4.2 / 22 / 2.0\ Assessment/Plan Assessment/Recommendations Assessment: RIMA most likely due to combination of NSAID and ARB. She had been told to avoid NSAIDs in the past. This combination can cause RIMA due to loss of renal autoregulation (NSAIDs vasoconstrict the afferent arterioles while ARB/BRIELLE vasodilate the efferent arterioles). In the setting of even mild volume depletion (eg colonoscopy prep) this can cause RIMA. NSAIDs and ARB have been stopped. Would resume losartan tomorrow if Cr stable as this will help BP. Daily labs Thanks Kishor Nunez MD Recommendations: .
--- NOTE | 2017-07-07 12:52 | ECHOCARDIOGRAM REPORT ---
MANUEL CURIEL Age: 71 : 1945 Gender: F Exam Date: 07/07/2017 10:21 Exam Location: [address] [facility] Ht (in): 61 Wt (lb): 99 BSA: 1.39 BP: 194 / 84 Ordering Physician: Suzy Almeida MD Referring Physician: Suzy Almeida MD Technologist: Rolando Valencia [facility] Room Number: 185-1 Indications: HYPERTENSION Rhythm: Sinus Technical Quality: Good FINDINGS Left Ventricle Normal size left ventricle. Mild left ventricular dilatation. Normal left ventricular ejection fraction visually estimated at >60%. No obvious regional wall motion abnormalities. Abnormal relaxation filling pattern of the left ventricle for age (stage 1 diastolic dysfunction). Right Ventricle Normal right ventricular size and function. Right Atrium Normal right atrial size. Left Atrium Normal left atrial size. Mitral Valve Mitral valve thickened. Trace mitral regurgitation. Aortic Valve Diffuse thickening (sclerosis) of the aortic valve cusps without reduced excursion. No aortic stenosis. Trace aortic regurgitation. Tricuspid Valve Tricuspid valve not well visualized, grossly normal. Trace tricuspid regurgitation. No evidence of pulmonary hypertension. Trace tricuspid regurgitation. Pulmonic Valve Pulmonic valve not well visualized, grossly normal. Pericardium No pericardial effusion. Great Vessels Normal size aortic root. CONCLUSIONS Normal size left ventricle. Mild left ventricular dilatation. Normal left ventricular ejection fraction visually estimated at > 60%. Abnormal relaxation filling pattern of the left ventricle for age (stage 1 diastolic dysfunction). Trace mitral regurgitation. Trace aortic regurgitation. Trace tricuspid regurgitation. Isaak Vital M.D. (Electronically Signed) Final Date: 07 July 2017 12:52 MEASUREMENTS (Male / Female) Normal Values 2D ECHO LV Diastolic Diameter PLAX 4.1 cm 4.2 - 5.9 / 3.9 - 5.3 cm LV Systolic Diameter PLAX 2.5 cm 2.1 - 4.0 cm LV Fractional Shortening PLAX 39.0 % 25 - 46 % LV Ejection Fraction 2D Teich 69.9 % IVS Diastolic Thickness 1.4 cm LVPW Diastolic Thickness 1.2 cm LV Relative Wall Thickness 0.6 RV Internal Dim ED PLAX 2.4 cm 1.9 - 3.8 cm LVOT Diameter 1.8 cm Aortic Root Diameter 2.8 cm LA Systolic Diameter LX 3.3 cm 3.0 - 4.0 / 2.7 - 3.8 cm Ascending Aorta Diameter 2.7 cm DOPPLER AV Peak Velocity 137.0 cm/s AV Peak Gradient 7.5 mmHg AV Mean Velocity 91.0 cm/s AV Mean Gradient 4.0 mmHg AV Velocity Time Integral 32.8 cm LVOT Peak Velocity 94.7 cm/s LVOT Peak Gradient 3.6 mmHg LVOT Mean Velocity 61.6 cm/s LVOT Mean Gradient 2.0 mmHg LVOT Velocity Time Integral 27.6 cm LVOT Stroke Volume 70.2 cm AV Area Cont Eq vti 2.1 cm AV Area Cont Eq pk 1.8 cm MV Peak Velocity 124.0 cm/s MV Peak Gradient 6.2 mmHg MV Mean Velocity 61.5 cm/s MV Mean Gradient 2.0 mmHg Mitral E Point Velocity 66.6 cm/s Mitral A Point Velocity 121.0 cm/s Mitral E to A Ratio 0.6 MV PHT Velocity 91.9 cm/s MV Deceleration [place] 196.0 cm/s MV Pressure Half Time 140.7 ms MV Area PHT 1.6 cm MV Deceleration Time 370.0 ms TR Peak Velocity 289.0 cm/s TR Peak Gradient 33.4 mmHg Right Atrial Pressure 5.0 mmHg Pulmonary Artery Systolic Pressu 38.4 mmHg Right Ventricular Systolic Press 38.4 mmHg PV Peak Velocity 81.3 cm/s PV Peak Gradient 2.6 mmHg PV Mean Velocity 57.9 cm/s PV Mean Gradient 2.0 mmHg PV Velocity Time Integral 16.5 cm LV E' Lateral Velocity 4.8 cm/s Mitral E to LV E' Lateral Ratio 13.9 LV E' Septal Velocity 4.9 cm/s Mitral E to LV E' Septal Ratio 13.7
--- NOTE | 2017-07-07 15:23 | PN- Student ---
Subjective Subjective: The patient states that she first had an episode of really high blood pressure ( SBP>220) last thursday, while she was at [facility] after getting a colonoscopy. She was given IV hypertensives and was discharged after her BP stabalized to [id number]. Since then, her blood pressure had been controlled with SBP ranging in the 120's-130's. This morning, she reports feeling fine, but is still experiencing some neck pain & left sided arm pain although to a lesser degree than yesterday. She also complains of having a mild headache at the back of her head. Besides this, she does not endorse any chest pain, palpitations, shortness of breath, or dark coloured urine. When asked about her salt intake, she admits shaq she has not been watching her salt intake over the last 3-4 months. The patient becomes tearful as she explains how she's also been drinking soda and doping other things that she usually doesnt, expressing how she's been feeling very depressed & anxious lately due to one of her best friends passing away and another one being hospitalized, as well as the recent loss of her . She states that she isn't used to becoming this anxious or so quickly upset to the point of tears, she also states that the ativan she usually takes for anxiety is no longer of any help and that at times she even takes two pills but it still doesn't work. She reports that she stopped drinking alcohol 6 years ago and quit smoking 51 days ago with the help of a nicoteine patch which she no longer uses. Objective Objective: At the time of examination, Ms. Loraine Wolfe was found to be laying comfortably in her bed, A&Ox3 & appeared to be in no acute distress. Chest exam reveals normal s1 & s1, as well as regular rate & rhythm on cardiac auscultation ; auscultation of the posterior chest wall reveals normal breath sounds & bilateral lung ortiz clear to auscultation with mild dry crackles heard over the left lung base. There was no tenderness noted on palpation of the spine, although palpation of the left lower back revealed muscular tightness and pain on palpation. No other pertinent findings on Physical exam. Vital Signs Date Time Temp Pulse Resp B/P B/P Pulse O2 O2 Flow FiO2 Mean Ox Delivery Rate 07/07 1417 124/70 07/07 1417 98.9 56 18 124/70 94 Room Air 07/07 1245 124/60 07/07 1053 Room Air 07/07 1008 73 194/84 07/07 1008 73 194/84 07/07 0842 194/84 07/07 0657 98.1 63 20 200/96 94 Room Air 07/07 0647 60 182/90 07/07 0545 54 192/90 07/07 0521 54 200/100 07/07 0511 68 200/100 07/07 0045 97.6 68 20 176/78 96 Room Air 07/06 2347 98.2 56 16 149/67 98 Room Air 07/06 2249 97.0 61 20 158/73 98 Room Air 07/06 1943 64 20 180/90 07/06 1937 64 20 180/90 07/06 1931 97 Room Air 07/06 1930 180/98 07/06 1930 97.0 64 20 183/87 98 Room Air 07/06 1912 70 20 189/90 07/06 1817 68 20 189/94 97 Room Air 07/06 1732 186/82 07/06 1701 97.8 61 18 198/102 96 Room Air Results Results: Laboratory Tests 07/07/17 0647: Anion Gap 11, Estimated GFR 25 L, BUN/Creatinine Ratio 21.5, Troponin I 0.02, CBC w Diff NO MAN DIFF REQ, RBC 3.58 L, MCV 90.5, MCH 30.9, MCHC 34.1, RDW 14.7 H, MPV 8.6, Gran % 60.3, Lymphocytes % 24.4, Monocytes % 9.7 H, Eosinophils % 4.8, Basophils % 0.8, Absolute Granulocytes 3.4, Absolute Lymphocytes 1.4, Absolute Monocytes 0.5, Absolute Eosinophils 0.3, Absolute Basophils 0 07/07/17 0525: Urinalysis LIGHT H, Urine Color STRAW, Urine Clarity CLEAR, Urine pH 6.0, Ur Specific [place] 1.015, Urine Protein 100 H, Urine Ketones NEG, Urine Nitrite NEG, Urine Bilirubin NEG, Urine Urobilinogen 0.2, Ur Leukocyte Esterase NEG, Ur Microscopic SEDIMENT EXAMINED, Urine WBC RARE, Ur Epithelial Cells MOD H, Urine Mucus FEW, Urine Hemoglobin NEG, Urine Glucose NEG 07/07/17 0525: Urine Opiates Screen < 100, Methadone Screen < 40, Barbiturate Screen < 60, Ur Phencyclidine Scrn < 6.00, Amphetamines Screen < 100, U Benzodiazepines Scrn < 85, Urine Cocaine Screen < 50, Urine Cannabis Screen < 5.00, Ur Random Creatinine 51.5, Ur Random Sodium 33, Ur Random Potassium 14.0, Fraction Sodium Excret 1.0 07/07/17 0029: Troponin I 0.02 07/06/17 1725: Anion Gap 10, Estimated GFR 23 L, BUN/Creatinine Ratio 21.0, Glucose 118 H, Calcium 8.7, Total Bilirubin 0.4, AST 15, ALT 21, Alkaline Phosphatase 87, Troponin I 0.01, Total Protein 6.3, Albumin 3.5, Globulin 2.8, Albumin/Globulin Ratio 1.3, CBC w Diff NO MAN DIFF REQ, RBC 3.92 L, MCV 91.0, MCH 30.6, MCHC 33.7, RDW 14.6 H, MPV 7.8, Gran % 67.8, Lymphocytes % 19.3 L, Monocytes % 9.0, Eosinophils % 3.3, Basophils % 0.6, Absolute Granulocytes 4.7, Absolute Lymphocytes 1.3, Absolute Monocytes 0.6, Absolute Eosinophils 0.2, Absolute Basophils 0 Assessment/Plan Assessment: Ms. Loraine Ponce is a 71 y.o. 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 Patient is stable today, feeling better but still hypertensive. She follows Dr. Honeycutt for her CKD, who recently increased her losartan from 50 to 100 mg daily, & she also admited to taking ibuprofen 600 mg once a day and Aleve 400 mg every 6 hours for the past week; these drugs are nephrotixic and likely caused her RIMA, given her elevated creatinine level. Plan: #Hypertensive Urgency - Start Hydralazine PO 10mg TID - Continue home meds of carvedilol, clonidine and amlodipine - Continue to hold lasix & losartan - Low soidum diet - cardiology consault #RIMA - Continue holding losartan & lasix - Avoid NSAIDs & other nephrotixic drugs - Nephrology consault #Anxiety - Stop the ativan & give the patient Xanax for her anxiety - Patient will follow up with psychiatrist as out-patient
[2017-07-08 06:30] VITALS: BP 178/88
--- NOTE | 2017-07-08 07:23 | PN- Housestaff ---
Arcenio WIN,[facility] 07/08/17 0723: Subjective Follow-up For: HTN urgency Tele-Events Since Last Visit: SB 47-54 Subjective: No acuet events overnight. Still complains of anxiety but states that she always has anxiety. States her neck pain is improved. States no headaches, lightheadedness or dizzyness. Review of Systems Constitutional: Reports: see HPI. Neurological/Psychological: Reports: headache. Objective Last 24 Hrs of Vital Signs/I&O Vital Signs Date Time Temp Pulse Resp B/P B/P Pulse O2 O2 Flow FiO2 Mean Ox Delivery Rate 07/08 0942 55 164/84 07/08 0939 56 164/84 07/08 0939 56 164/84 07/08 0630 97.8 56 18 178/88 97 07/07 2151 97.7 58 18 164/79 96 07/07 2116 58 152/78 07/07 2116 58 152/78 07/07 2116 58 152/78 07/07 1607 58 156/88 07/07 1600 Room Air Intake & Output 07/08 1600 07/08 0800 07/08 0000 Intake Total 30 320 Output Total 100 Balance -100 30 320 Intake, Oral 30 320 Output, Urine 100 Patient 106 lb Weight Weight Bed scale Measurement Method Physical Exam General Appearance: Alert, Oriented X3, Cooperative, No Acute Distress Cardiovascular: Regular Rate, Normal S1, Normal S2 Lungs: Normal Air Movement, diffuse crackles Abdomen: Normal Bowel Sounds, Soft, No Tenderness Vascular: 2+ radial pulses Current Medications: Current Medications Sig/Jenny Start time Last Medication Dose Route Stop Time Status Admin Acetaminophen 650 MG Q6P PRN 07/060 DCD PO Albuterol Sulfate 2 PUF Q4P PRN 07/06 2230 DCD INH Alprazolam 0.25 MG TID 07/07 2200 DCD 07/08 PO 0805 Alprazolam 0.5 MG TID 07/07 1000 DC 07/07 PO 07/14 0959 1605 Amlodipine Besylate 10 MG DAILY 07/07 1000 DCD 07/08 PO 0939 Carvedilol 25 MG BID 07/07 1000 DCD 07/08 PO 0939 Clonidine 0.1 MG BID 07/07 1000 DCD 07/08 PO 0939 Heparin Sodium 5,000 UNIT Q8 07/07 0600 DCD 07/08 (Porcine) SC 0619 Hydralazine HCl 10 MG TID 07/07 1000 DCD 07/08 PO 0942 Nystatin 5 ML 4 TIMES/DAY PRN 07/08 0430 DCD 07/08 PO 0623 Patient Medication 1 ED ONE ONE 07/07 1700 DC Teaching ED 07/07 1701 Sertraline HCl 200 MG DAILY 07/07 1000 DCD 07/08 PO 0939 Trazodone HCl 50 MG .STK-MED ONE 07/070 DC PO 07/07 212 Trazodone HCl 50 MG QPM PRN 07/06 2245 DCD 07/07 PO 212 Last 24 Hrs of Lab/[place] Results Last 24 Hrs of Labs/Mics: Laboratory Tests 07/08/17 0640: Anion Gap 9, Estimated GFR 25 L, BUN/Creatinine Ratio 25.5 H, CBC w Diff NO MAN DIFF REQ, RBC 3.83 L, MCV 90.3, MCH 30.5, MCHC 33.7, RDW 14.7 H, MPV 8.6, Gran % 58.5, Lymphocytes % 25.3, Monocytes % 10.4 H, Eosinophils % 5.1 H, Basophils % 0.7, Absolute Granulocytes 3.0, Absolute Lymphocytes 1.3, Absolute Monocytes 0.5, Absolute Eosinophils 0.3, Absolute Basophils 0 Assessment/Plan Assessment: A: Ms. Boykin is 71-year-old lady with past medical history significant for hypertension, hyperlipidemia(not on medications), COPD, TIA(2009), hepatitis C with proliferative glomerulonephritis and cryoglobulinemia, anxiety, depression, peripheral vascular disease, osteoporosis and alcohol abuse(quit 6 years ago) presents to the [place] ER because of elevated blood pressure. #Hypertensive urgency Trops .01, then .02x2 CXR: Stable hyperinflation without acute abnormality. UA, utox, urine lytes unremarkable Echo: EF >60% with stage 1 diastolic dysfunction Patient swtiched from lorazepam to xanax during inpatient, BP dropped from 190- 200s systolic to 124/70s Dereased xanax from .5 TID scheduled to .25 -BP stable @ 150-160s systolic -cont clonidine, coreg, amlodipine for discharge -will continue ativan for discharge -will add hydralazine 10mg TID -advised to get BMP on thursday. If back to baseline should discuss with pcp regarding restarting losartan -advised to follow up with staff psychiatrist on july 21 to switch to xanax #depression Declined psych eval as she will f/u with psych outpatient -cont sertraline, trazodone #RIMA on CKD; likely secondary to NSAIDs use Cr 2.0 -patient advised not to use NSAIDS -cont monitor ing renal function -restart losartan as instructed above #DVT prophylaxis - subq heparin #FULL CODE Problem List: 1. RIMA (acute kidney injury) 2. Depression 3. Hypertensive urgency Pain Ratin Pain Location: none Pain Goal: Pain 4 or less Pain Plan: none Tomorrow's Labs & Rationales: none Artis Khan 07/08/17 1317: Attending MD Review Statement Attending Statement Attending MD Statement: examined this patient, discuss w/resident/PA/CONGRESSIONAL AIDE, agreed w/resident/PA/CONGRESSIONAL AIDE, reviewed EMR data (avail), discussed with nursing, discussed with case mgmt Attending Assessment/Plan: D/w pt the care plan. Pt is being dced home today . D/w pt the medication changes. Pt will be following up with Dr Mendieta on Thursday and will have a repeat BEP checked on Thursday to see if her cr is improving and if she can be restarted back on her ARB. pt was encouraged to wean off Benzo and will be seen a psychiatrist on 07/20/17. see dc summary for more details.
--- NOTE | 2017-07-08 07:35 | PN- Nephrology ---
Assessment/Plan Nephrology Assessment: RIMA likely due to combination ARB/NSAID. As long as cr starting to fall okay to resume ARB today. Kishor Nunez MD. Suggestion: . Subjective Subjective: Pt feels well non complaints. Objective Vital Signs and I&Os F NAD 164/79 97 58 Lungs clear Cor RRR Abd soft Ext neg edema Results Pertinent Lab Results: labs pending.
[2017-07-08 08:06] LABS: ABSOLUTE BASOPHIL COUNT 0 /CUMM (0.0-0.2); ABSOLUTE EOSINOPHIL COUNT 0.3 /CUMM (0.0-0.7); ABSOLUTE LYMPH COUNT 1.3 /CUMM (1.2-3.4); ABSOLUTE MONOCYTE COUNT 0.5 /CUMM (0.10-0.60); BASOPHIL % 0.7 % (0.0-2.0); EOSINOPHIL % 5.1 % (0-5); GRANULOCYTE % 58.5 % (42.2-75.2); HEMATOCRIT 34.6 % (37-47); MEAN CORPUSCULAR HGB 30.5 PG (27.0-31.0); MEAN CORPUSCULAR HGB CONC 33.7 G/DL (33.0-37.0); MEAN CORPUSCULAR VOLUME 90.3 FL (81.0-99.0); MEAN PLATELET VOLUME 8.6 FL (7.4-10.4); PLATELET COUNT 221 /CUMM (130-400); RBC DISTRIBUTION WIDTH 14.7 % (11.5-14.5); RED BLOOD CELL CT 3.83 /CUMM (4.20-5.40); WHITE BLOOD CELL COUNT 5.1 /CUMM (4.8-10.8)
[2017-07-08 09:42] VITALS: BP 164/84
--- NOTE | 2017-07-08 09:48 | Patient Discharge Instructions ---
Discharge Instructions General Discharge Information Special Instructions: Please follow up with your pcp in 1 week. Please get repeat blood work on thursday. If your creatinine has improved to 1.5 ( your baseline), please discuss with your pcp about restarting losartan. Please follow up with your new computer security specialist. Please avoid ibuprofen and other NSAIDS. Please take your medications as perscribed. Acute Coronary Syndrome Inclusion Criteria At DC or during hospital stay patient has or had the following: ACS DIAGNOSIS No Discharge Core Measures Meds if any: Prescribed or Continued at Discharge Meds if any: NOT Prescribed or Continued at Discharge Congestive Heart Failure Inclusion Criteria At DC or during hospital stay patient has or had the following: CHF DIAGNOSIS No Discharge Core Measures Meds if any: Prescribed or Continued at Discharge Meds if any: NOT Prescribed or Continued at Discharge Cerebrovascular accident Inclusion Criteria At DC or during hospital stay patient has or had the following: CVA/TIA Diagnosis No Discharge Core Measures Meds if any: Prescribed or Continued at Discharge Meds if any: NOT Prescribed or Continued at Discharge Venous thromboembolism Inclusion Criteria VTE Diagnosis No VTE Type NONE VTE Confirmed by (Test) NONE Discharge Core Measures - Per Current guidelines, there needs to be overlap - treatment for the first 5 days of Warfarin therapy. - If discharged on Warfarin prior to 5 days of - overlap therapy, the patient will need to be - assessed for post discharge needs including - *Post discharge parental anticoagulation - *Warfarin and/or parental anticoagulation education - *Follow up date to check INR post discharge At least 5 days overlap therapy as Inpatient No Meds if any: Prescribed or Continued at Discharge Note: Overlap Therapy is Warfarin and Anticoagulant Meds if any: NOT Prescribed or Continued at Discharge
[2017-07-08] MEDS ORDERED: NYSTATIN100000 UNI PO (09:51)
[2017-07-08] MEDS ORDERED: HYDRALAZINE HCL10 M1 PO ×2 (09:54→11:35)
[2017-07-08] MEDS ORDERED: ATIVAN1 M1 PO (11:20)
[2017-07-08] MEDS ORDERED: ATIVAN0.5 M1 PO (11:23)
--- NOTE | 2017-07-08 19:03 | Discharge Summary ---
Visit Information Visit Dates Admission Date: 07/06/17 Discharge Date: 07/08/17 Hospital Course Course Attending Physician: Erin WIN,Artis Magana Primary Care Physician: Buzz WIN,Hugh Hogan [facility] Course: A: Ms. Boykin is 71-year-old F with past medical history significant for hypertension, hyperlipidemia, COPD, TIA(2009), hepatitis C with proliferative glomerulonephritis and cryoglobulinemia, anxiety, depression, peripheral vascular disease, osteoporosis and alcohol abuse(quit 6 years ago) who presented with a chief complaint of hypertension to the [place] ER because of elevated blood pressure. Problems: #Hypertensive urgency most likely related to anxiety. Her initial sysolic BP was in the 190s-200s. She was asymptomatic. EKG and troponins were negative x3. CXR revealed stable hyperinflation without acute abnormality. UA, utox, urine lytes were unremarkable. Echo revealed EF >60% with stage 1 diastolic dysfunction. We continued her home medicications of clonidine, coreg and amlodipine. Her Losartan was held due to RIMA. She was continued on her ativan but we switched her to xanax .5mg TID and her bp decreased to 120s systolic as she stated her anxiety was improved. We redudced the xanax dose to .25mg TID and her BP remained stable in the 150s-160s. Upon discharge we continued her home regimen of clonidine, coreg, and amlodipine. We addeed hydralazine 10mg TID. She was advised to reduce her 1mg TID ativan dose to .5 mg TID. She was also advised to f/u with her pcp and psychiatrist regarding switching from ativan to xanax. She was advised to get BMP on thursday. If her renal function returned back to baseline, she should discuss with the pcp to restarting her losartan. #RIMA on CKD; likely secondary to ARB+NSAIDs use The patient's baseline Cr is 1.5. Cr during admission was 2.0-2.1. She was seen by nephrology who believed her RIMA was due to the combo of ARBs and NSAIDs. She was advised to not use NSAIDs in the past. She was instructed to restart losartan by her pcp if her labs were stabilized on thursday. #depression The patient states that several personal losses have increased her anxiety. She declined psych eval and stated that she wanted to f/u with her private psyhchiatrist when she leaves. She continued her sertraline and trazodone during admission. Allergies: Coded Allergies: No Known Allergies (12/05/15) Disposition Summary Disposition Principal Diagnosis: HTN urgency Additional Diagnosis: RIMA Depression Anxiety Discharge Disposition: home health services Discharge Instructions General Discharge Information Code Status: Full Code Patient's Diet: Low salt Patient's Activity: As tolerated Follow-Up Instructions/Appts: Please follow up with your pcp in 1 week. Please get repeat blood work on thursday. If your creatinine has improved to 1.5 ( your baseline), please discuss with your pcp about restarting losartan. Please follow up with your new mis specialist. Please avoid ibuprofen and other NSAIDS. Please take your medications as perscribed. Medications at Discharge Discharge Medications: Stop taking the following medications: Ibuprofen (Ibuprofen) 600 MG TABLET ORAL EVERY 6 HOURS NEEDED as needed for pain Qty = 50 Losartan (Cozaar) 100 MG TABLET ORAL DAILY LORazepam (Ativan) 1 MG TAB ORAL THREE TIMES DAILY Continue taking these medications: Clonidine HCl (Clonidine HCl) 0.1 MG TABLET 1 Tablet ORAL TWICE DAILY Days = 30 Comments: Last Taken: 07/08/17 Time: 0945 AM Furosemide (Lasix) 20 MG TABLET 1 Tablet ORAL DAILY Comments: NOT TAKEN AT HOSPITAL Albuterol Sulfate (Proair Hfa) 8.5 GM HFA.AER.AD 2 Puff Inhale through mouth as needed for COPD Comments: NOT GIVEN AT HOSPITAL Albuterol Sulfate (Albuterol Sulfate) 2.5 MG/3 ML VIAL.NEB 1 Vial Inhale Solution as needed for COPD Comments: NOT GIVEN AT HOSPITAL Amlodipine Besylate (Amlodipine Besylate) 10 MG TABLET 1 Tablet ORAL DAILY Comments: Last Taken: 07/08/17 Time: 0940 AM Oxycodone HCl/Acetaminophen (Percocet 10-325 MG Tablet) 10 MG-325 MG TABLET 1 Tablet ORAL 4 TIMES A DAY as needed for severe pain Qty = 15 Comments: NOT TAKEN IN HOSPITAL. Carvedilol (Coreg) 25 MG TABLET 1 Tablet ORAL TWICE DAILY Comments: Last Taken: 07/08/17 Time: 0940 AM Sertraline HCl (Zoloft) 100 MG TABLET 2 Tablet ORAL DAILY Comments: Last Taken: 07/08/17 Time: 0945 AM Trazodone HCl (Trazodone HCl) 50 MG TABLET 1 Tablet ORAL Every night as needed for insomnia Comments: NOT GIVEN IN HOSPITAL. Start taking the following new medications: Hydralazine HCl (Hydralazine HCl) 10 MG TABLET 1 Tablet ORAL THREE TIMES DAILY Qty = 90 No Refills Instructions: . Comments: Last Taken: 07/08/17 Time: 0945 AM Lorazepam (Ativan) 0.5 MG TABLET 1 Tablet ORAL THREE TIMES DAILY Qty = 30 No Refills Comments: NOT GIVEN IN HOSPITAL. Copies To: Buzz WIN,Hugh Hogan
== END 2017-07-08 12:00 | disposition home health service (06) | DRG 683 ==
LOC: ERH 14:56 → 1NO 19:12 → ERHI 19:12 → ENRESERV 22:57 → 1NO 07-07 00:45 → ENPENDDIS 07-08 10:56 → 1NO 07-08 12:00
PROVIDERS: Hospitalist; Physician Assistant
DX: N17.9 Acute kidney failure, unspecified (principal); I13.0 Hypertensive heart and chronic kidney disease with heart failure and stage 1 through stage 4 chronic kidney disease, or unspecified chronic kidney disease; J44.9 Chronic obstructive pulmonary disease, unspecified; D89.1 Cryoglobulinemia; I50.32 Chronic diastolic (congestive) heart failure; I73.9 Peripheral vascular disease, unspecified; N18.9 Chronic kidney disease, unspecified; I16.0 Hypertensive urgency; Z91.14 Patient's other noncompliance with medication regimen; Z91.11 Patient's noncompliance with dietary regimen; E78.5 Hyperlipidemia, unspecified; Z86.73 Personal history of transient ischemic attack (TIA), and cerebral infarction without residual deficits; B18.2 Chronic viral hepatitis C; F32.9 Major depressive disorder, single episode, unspecified; F41.9 Anxiety disorder, unspecified; M81.0 Age-related osteoporosis without current pathological fracture; F10.11 Alcohol abuse, in remission; Z79.891 Long term (current) use of opiate analgesic; Z79.51 Long term (current) use of inhaled steroids; T39.395A Adverse effect of other nonsteroidal anti-inflammatory drugs [NSAID], initial encounter; G47.00 Insomnia, unspecified; R60.9 Edema, unspecified; Z87.891 Personal history of nicotine dependence; T44.5X5A Adverse effect of predominantly beta-adrenoreceptor agonists, initial encounter
CPT/HCPCS: 1NSP; 84133; 84300; ERO; 36415; 36592; 71046; 80307; 81001; 82436; 82570; 82595; 93005; 93010; 93306; 96374; 99291; J0360; J1644; J3490

== ENCOUNTER 2017-08-25 16:43 | Emergency (ER) | payer OTHER, MEDICARE ==
[~2017-08-25] VITALS: Ht 154.9 cm; Wt 46.7 kg
[~2017-08-25 16:43] MED LIST changes: +ATIVAN1 M1 PO; +COREG25 M1 PO; +COZAAR100 M1 PO; +HYDRALAZINE HCL10 M1 PO; +NYSTATIN100000 UNI PO; +ZOLOFT100 M1 PO
--- NOTE | 2017-08-25 18:07 | ED GENERAL ADULT ---
History of Present Illness General Chief Complaint: General Adult Stated Complaint: PT WAS SIB FOR B/P 240/120 Source: patient Exam Limitations: no limitations Vital Signs & Intake/Output Vital Signs & Intake/Output Vital Signs Date Time Temp Pulse Resp B/P B/P Pulse O2 O2 Flow FiO2 Mean Ox Delivery Rate 08/25 2056 98.7 50 20 189/88 95 Room Air 08/25 1858 98.2 59 20 220/110 08/25 1858 98.2 59 20 220/110 08/25 1826 98.2 59 20 220/110 99 Room Air 08/25 1655 63 179/96 08/25 1654 97.9 62 18 200/108 96 Room Air Room Air Allergies Coded Allergies: No Known Allergies (12/05/15) Reconcile Medications Albuterol Sulfate (Proair Hfa) 8.5 GM HFA.AER.AD 2 PUF INH PRN COPD (Reported ) Albuterol Sulfate 2.5 MG/3 ML VIAL.NEB 1 Vial INH/REG PRN COPD (Reported) Amlodipine Besylate 10 MG TABLET 1 TAB PO DAILY HTN (Reported) Carvedilol (Coreg) 25 MG TABLET 1 TAB PO BID htn (Reported) Clonidine HCl 0.1 MG TABLET 1 TAB PO BID BLOOD PRESSURE Furosemide (Lasix) 20 MG TABLET 1 TAB PO DAILY DIURETIC (Reported) Hydralazine HCl 10 MG TABLET 1 TAB PO TID BLOOD PRESSURE . Lorazepam (Ativan) 0.5 MG TABLET 1 TAB PO TID ANXIETY Oxycodone HCl/Acetaminophen (Percocet 10-325 MG Tablet) 10 MG-325 MG TABLET 1 TAB PO 4 TIMES/DAY PRN severe pain Prednisone (Deltasone) 20 MG TABLET 3 TAB PO DAILY WHEEZING BEGIN TOMORROW Sertraline HCl (Zoloft) 100 MG TABLET 2 TAB PO DAILY depression (Reported) Sulfamethoxazole/Trimethoprim (Bactrim Ds Tablet) 800 MG-160 MG TABLET 1 TAB PO BID copd Trazodone HCl 50 MG TABLET 1 TAB PO QPM PRN insomnia (Reported) Triage Note: PT TO ED FROM [facility] OFFICE, WITH HIGH BP'S OF 230/140, HAD EKG DONE FROM [facility] DESK, MANUAL BP 203/108, AND PT CALMED DOWN IN TRIAGE REPEAT BP 179/96, HEART RATE 60'S. Triage Nurses Notes Reviewed? yes Onset: Abrupt Duration: day(s): Timing: recent history HPI: 08/25/17 71-year-old female presents to the emergency department for difficulty breathing and elevated blood pressure. The patient states she has a history of COPD. She also has history of high blood pressure. She was seen in her primary care doctor's office and had completed a course of prednisone and Zithromax. She continues to have difficulty breathing. She says she quit smoking 4 months ago. She denies any chest pain or fever. (Zeyad Dotson DO) Past History Travel History Traveled to [place] past 21 day No Medical History Any Pertinent Medical History? 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 Other Medical Hx: Cryoglobulinemia History of MRSA: No History of VRE: No History of CDIFF: No Influenza Vaccine: 05/21/17 Surgical History Surgical History: hernia repair-inguinal, hernia repair-umbilical, hip replacement, HERNIA,VARICOSE VEINS Arterial intervention tonsilloectomy LEFT HIP Psychosocial History Who do you live with Patient/Self Services at Home Nursing What is your primary language Amharic Tobacco Use: Quit >30 days ago ETOH Use: alcoholic, CLEAN X 6 YEARS Illicit Drug Use: denies illicit drug use Family History Family History, If Any: SISTER FATHER MOTHER BROTHER (Myocardial infarction age of 4343 years old). . FATHER FATHER (Liver and lung cancer). . MOTHER MOTHER (Alcoholism and pheochromocytoma). . Relation not specified for: Alcoholism in mother Family hx of lung cancer FH: lung cancer FH: myocardial infarction Hx Contributory? No (Zeyad Dotson DO) Review of Systems Review of Systems Constitutional: Denies: fever. EENTM: Reports: no symptoms. Respiratory: Reports: cough, short of breath. Cardiovascular: Denies: chest pain. GI: Denies: abdominal pain. Genitourinary: Reports: no symptoms. Musculoskeletal: Reports: see HPI. Skin: Reports: no symptoms. Neurological/Psychological: Reports: no symptoms. Hematologic/Endocrine: Reports: no symptoms. (Zeyad Dotson DO) Physical Exam Physical Exam General Appearance: alert, awake, anxious, moderate distress Head: atraumatic, normal appearance Eyes: Bilateral: normal appearance, PERRL, EOMI. Ears, Nose, Throat: normal pharynx, normal ENT inspection Neck: normal inspection, supple Respiratory: decreased breath sounds, accessory muscle use, wheezing Cardiovascular: regular rate/rhythm Peripheral Pulses: 4+ radial (R), 4+ radial (L) Gastrointestinal: soft, non-tender Back: normal inspection Extremities: normal inspection, no edema Neurologic/Psych: no motor/sensory deficits, awake, alert, oriented x 3, normal gait Skin: intact, normal color, warm/dry Core Measures ACS in differential dx? No CVA/TIA Diagnosis: No Sepsis Present: No Sepsis Focused Exam Completed? No (Zeyad Dotson DO) Progress Differential Diagnoses I considered the following diagnoses in my evaluation of the patient: [Pneumonia , asthma, COPD, CHF, pulmonary embolism, hypertensive urgency] Plan of Care: Orders Procedure Date/time Status Vital Signs 08/25 2046 Active TROPONIN LEVEL 08/25 183 Complete COMPREHENSIVE METABOLIC PANEL 08/25 183 Complete CBC WITHOUT DIFFERENTIAL 08/26 1831 Complete EKG 08/25 1645 Active Laboratory Tests 08/25/17 1903: Anion Gap 11, Estimated GFR 23 L, BUN/Creatinine Ratio 19.5, Glucose 101 H, Calcium 9.0, Total Bilirubin 0.5, AST 16, ALT 21, Alkaline Phosphatase 85, Troponin I < 0.01, Total Protein 6.8, Albumin 3.5, Globulin 3.3, Albumin/ Globulin Ratio 1.1, CBC w Diff NO MAN DIFF REQ, RBC 3.74 L, MCV 90.2, MCH 29.9, MCHC 33.1, RDW 14.3, MPV 7.1 L, Gran % 88.7 H, Lymphocytes % 8.0 L, Monocytes % 3.3, Eosinophils % 0, Basophils % 0, Absolute Granulocytes 8.3 H, Absolute Lymphocytes 0.7 L, Absolute Monocytes 0.3, Absolute Eosinophils 0, Absolute Basophils 0 Initial ED EKG: NSR (Zeyad Dotson DO) Comments: 08/25/2017 7:41:01 PM patient signed out to me 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 08/25/2017 7:46:58 PM I have reevaluated Loraine. She appears comfortable with good bilateral air entry. She does however have end expiratory wheezing posteriorly. She states she feels that her baseline as far as her lungs are concerned but questions are current prednisone dose of only 20 mg per day. She feels that if this were increased and she will provided an antibiotic that she could get through this COPD flareup without difficulty. 08/25/2017 9:30:56 PM patient feels improved enough to return home. (Emani WIN,Zeyad Narvaez) Departure Departure Condition: Stable Departure Forms: Customer Survey General Discharge Information Comments The patient received albuterol and Atrovent. She was given her antihypertensive medications, she was signed out to Dr. Joaquin at 7 PM. Pending reevaluation. (Mauri GONZALEZ,Zeyad Peralta) Departure Disposition: HOME OR SELF CARE Clinical Impression Primary Impression: COPD exacerbation Secondary Impressions: High blood pressure Qualifiers: Hypertension type: unspecified Qualified Code: I10 - Essential ( primary) hypertension Referrals: Buzz WIN,Hugh Hogan (PCP/Family) Additional Instructions: Prednisone as prescribed. Bactrim as prescribed. Take your nebulizer every 6 hours at home and use the rescue inhaler in between if needed. Follow-up with your primary care physician or director export within the next 48 hours. Return if any concerns or sudden worsening. Please note that there might be incidental findings in your evaluation that are unrelated to the current emergency department visit. Please notify your primary care doctor about this emergency department visit in order to obtain and review all of the testing performed so that these incidental findings can be monitored as needed. If you had an x-ray performed, please understand that some fractures may not be seen on the initial set of x-rays. If your symptoms persist you might need a repeat set of x-rays to check for such a fracture. If you had a laceration evaluated, please understand that foreign bodies such as glass or wood may not be visible to the naked eye or on plain x-rays. If the wound becomes red, swollen, increasingly more painful or if there is any drainage from the wound, please have it reevaluated by a physician for the possibility of a retained foreign body. If you're unable to follow up as outlined in the discharge instructions please return to the emergency department. Thank you for choosing the [facility] for your care. It was a pleasure to serve you today. Zeyad Joaquin M.D. [facility] Prescriptions: Current Visit Scripts Prednisone (Deltasone) 3 TAB PO DAILY #12 TAB BEGIN TOMORROW Sulfamethoxazole/Trimethoprim (Bactrim Ds Tablet) 1 TAB PO BID #14 TAB (Emani WIN,Zeyad Narvaez) Critical Care Note Critical Care Note Critical Care Time: non-applicable (Zeyad Dotson DO)
[2017-08-25 19:10] LABS: ABSOLUTE BASOPHIL COUNT 0 /CUMM (0.0-0.2); ABSOLUTE EOSINOPHIL COUNT 0 /CUMM (0.0-0.7); ABSOLUTE GRANULOCYTE CT 8.3 /CUMM (1.4-6.5); ABSOLUTE LYMPH COUNT 0.7 /CUMM (1.2-3.4); ABSOLUTE MONOCYTE COUNT 0.3 /CUMM (0.10-0.60); BASOPHIL % 0 % (0.0-2.0); EOSINOPHIL % 0 % (0-5); GRANULOCYTE % 88.7 % (42.2-75.2); HEMATOCRIT 33.8 % (37-47); MEAN CORPUSCULAR HGB 29.9 PG (27.0-31.0); MEAN CORPUSCULAR HGB CONC 33.1 G/DL (33.0-37.0); MEAN CORPUSCULAR VOLUME 90.2 FL (81.0-99.0); MEAN PLATELET VOLUME 7.1 FL (7.4-10.4); PLATELET COUNT 336 /CUMM (130-400); RBC DISTRIBUTION WIDTH 14.3 % (11.5-14.5); RED BLOOD CELL CT 3.74 /CUMM (4.20-5.40); WHITE BLOOD CELL COUNT 9.4 /CUMM (4.8-10.8)
[2017-08-25] MEDS ORDERED: BACTRIM DS TAB1 EACH PO (19:50)
[2017-08-25] MEDS ORDERED: DELTASONE20 MG PO (19:50)
--- NOTE | 2017-08-25 20:26 | RADIOLOGY REPORT ---
EXAMINATION: XR PORTABLE CHEST CLINICAL INFORMATION: Shortness of breath. Patient stopped smoking 4 months ago. COMPARISON: Multiple prior chest x-rays, most recent of which is dated 07/06/2017. TECHNIQUE: Portable AP semierect view of the chest was obtained. FINDINGS: EKG leads overlie the chest. The cardiac silhouette is within normal limits in size. Ectasia and tortuosity of the aorta is seen. Lungs bilaterally are hyperinflated. There is enlargement of the central pulmonary monique, likely related to enlargement of the pulmonary arteries, consistent with pulmonary arterial hypertension. Mild bibasilar subsegmental atelectasis is seen. No focal pneumonia is noted. No effusion or pneumothorax is seen. Bony structures are unremarkable. IMPRESSION: 1. COPD with bibasilar subsegmental atelectasis and suspicion of pulmonary arterial hypertension. 2. No acute pulmonary process. 3. Ectatic and tortuous aorta again seen, unchanged.
[2017-08-25 20:57] VITALS: BP 189/88
== END 2017-08-25 21:34 ==
LOC: ERH 16:43
PROVIDERS: Emergency Medicine
DX: K21.9 Gastro-esophageal reflux disease without esophagitis (principal); I10 Essential (primary) hypertension
CPT/HCPCS: 1263; 71045; 93005; 93010

== ENCOUNTER 2017-08-31 15:53 | Inpatient (IN) | payer OTHER, MEDICARE ==
[~2017-08-31] VITALS: Ht 154.9 cm; Wt 48.3 kg
[~2017-08-31 15:53] MED LIST changes: +BACTRIM DS TAB1 EACH PO; +DELTASONE20 MG PO
[2017-08-31 17:04] LABS: ABSOLUTE BASOPHIL COUNT 0 /CUMM (0.0-0.2); ABSOLUTE EOSINOPHIL COUNT 0.1 /CUMM (0.0-0.7); ABSOLUTE GRANULOCYTE CT 5.9 /CUMM (1.4-6.5); ABSOLUTE LYMPH COUNT 1.2 /CUMM (1.2-3.4); ABSOLUTE MONOCYTE COUNT 0.7 /CUMM (0.10-0.60); BASOPHIL % 0.3 % (0.0-2.0); EOSINOPHIL % 1.2 % (0-5); GRANULOCYTE % 75.2 % (42.2-75.2); HEMATOCRIT 36.3 % (37-47); MEAN CORPUSCULAR HGB 29.4 PG (27.0-31.0); MEAN CORPUSCULAR HGB CONC 32.6 G/DL (33.0-37.0); MEAN CORPUSCULAR VOLUME 90.4 FL (81.0-99.0); MEAN PLATELET VOLUME 7.3 FL (7.4-10.4); PLATELET COUNT 422 /CUMM (130-400); RBC DISTRIBUTION WIDTH 14.4 % (11.5-14.5); RED BLOOD CELL CT 4.02 /CUMM (4.20-5.40); WHITE BLOOD CELL COUNT 7.9 /CUMM (4.8-10.8)
--- NOTE | 2017-08-31 18:15 | ED DYSPNEA/ASTHMA COMPLAINT ---
History of Present Illness General Chief Complaint: General Adult Stated Complaint: "WHEEZING IN MY CHEST LIKE LAST WEEK" Source: patient Exam Limitations: no limitations Vital Signs & Intake/Output Vital Signs & Intake/Output Vital Signs Date Time Temp Pulse Resp B/P B/P Pulse O2 O2 Flow FiO2 Mean Ox Delivery Rate 08/31 2128 98.6 52 20 133/65 93 Room Air 08/31 2033 98.6 62 20 166/79 08/31 2032 98.6 62 20 166/79 92 Room Air 08/31 2016 196/86 08/31 1914 98.2 54 18 194/82 20 Room Air 08/31 1826 95 08/31 1812 98.0 56 24 200/90 96 Room Air 08/31 1605 98.9 62 20 200/92 95 Room Air Allergies Coded Allergies: No Known Allergies (12/05/15) Triage Note: 71F RETURNS FOR WHEEZING, CURRENTLY ON BACTRIM AND PREDNISONE 20MG AND STILL FEELING SOB WITH DRY COUGH. O2 SAT 95% AND NO RESP DISTRESS. DENIES CP/PALPITATIONS. TOOK ALL MEDS TODAY BUT MANUAL BP 200/92 IN TRIAGE. ENDORSES POST NASAL DRIP AND CLEAR RHINORRHEA WITH BLOODY NOSE YESTERDAY Triage Nurses Notes Reviewed? 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 Denies any chest pain arm pain jaw pain and leg swelling hemoptysis nausea vomiting diaphoresis. (Callie AGUILAR,Dwain) Reconcile Medications Albuterol Sulfate (Proair Hfa) 8.5 GM HFA.AER.AD 2 PUF INH PRN COPD (Reported ) Albuterol Sulfate 2.5 MG/3 ML VIAL.NEB 1 Vial INH/REG PRN COPD (Reported) Amlodipine Besylate 10 MG TABLET 1 TAB PO DAILY HTN (Reported) Budesonide/Formoterol Fumarate (Symbicort 80-4.5 Mcg Inhaler) 80 MCG-4.5 MCG/ ACTUATION HFA.AER.AD 2 PUF INH BID copd (Reported) Carvedilol (Coreg) 25 MG TABLET 12.5 MG PO BID htn (Reported) Clonidine HCl 0.1 MG TABLET 1 TAB PO BID BLOOD PRESSURE Lorazepam (Ativan) 0.5 MG TABLET 1 MG PO TID ANXIETY Losartan (Cozaar) 100 MG TABLET 1 TAB PO DAILY htn (Reported) Prednisone (Deltasone) 20 MG TABLET 3 TAB PO DAILY WHEEZING BEGIN TOMORROW Sertraline HCl (Zoloft) 100 MG TABLET 1 TAB PO DAILY depression (Reported) Sulfamethoxazole/Trimethoprim (Bactrim Ds Tablet) 800 MG-160 MG TABLET 1 TAB PO BID copd Trazodone HCl 50 MG TABLET 1 TAB PO QPM PRN insomnia (Reported) (Kirill WIN,Moreno Pablo) Past History Travel History Traveled to [place] past 21 day No Medical History Any Pertinent Medical History? 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 . FATHER FATHER (Liver and lung cancer). . MOTHER MOTHER (Alcoholism and pheochromocytoma). . Relation not specified for: Alcoholism in mother Family hx of lung cancer FH: lung cancer FH: myocardial infarction Hx Contributory? No (Dwain Ernandez) Review of Systems Review of Systems Constitutional: Reports: no symptoms. EENTM: Reports: no symptoms. Respiratory: Reports: see HPI. Cardiovascular: Reports: see HPI. GI: Reports: no symptoms. Genitourinary: Reports: no symptoms. Musculoskeletal: Reports: no symptoms. Skin: Reports: no symptoms. Neurological/Psychological: Reports: no symptoms. Hematologic/Endocrine: Reports: no symptoms. Immunologic/Allergic: Reports: no symptoms. All Other Systems: Reviewed and Negative (Dwain Ernandez) Physical Exam Physical Exam General Appearance: no apparent distress, thin Head: atraumatic Eyes: Bilateral: normal appearance. Ears, Nose, Throat: normal pharynx, hearing grossly normal Neck: normal inspection Respiratory: no respiratory distress, rhonchi, wheezing Cardiovascular: regular rate/rhythm Gastrointestinal: normal bowel sounds, soft, non-tender Extremities: normal inspection Neurologic/Psych: no motor/sensory deficits Skin: intact, normal color Core Measures ACS in differential dx? No CVA/TIA Diagnosis No Sepsis Present: No Sepsis Focused Exam Completed? No (Dwain Ernandez) Progress Differential Diagnosis: asthma, AMI, costochondritis, CHF, COPD, musculoskeletal pain, pericarditis, pulmonary embolism, pneumonia, pneumothorax, rib fracture, unstable angina Plan of Care: Orders Procedure Date/time Status Heart Healthy Diet 09/01 B Active CBC WITHOUT DIFFERENTIAL 09/01 0600 Active BASIC ELECTROLYTES PLUS BUN&CR 09/01 0600 Active BLOOD CULTURE 08/31 2235 Active URINALYSIS 08/31 223 Active STREP PNEUMO URINARY ANTIGEN 08/31 2209 Complete LEGIONELLA URINARY ANTIGEN 08/31 2209 Complete LOWER RESPIRATORY CULTURE 08/31 2209 Active TRC EVALUATION (GEN) 08/31 2208 Active Pathway - chart 08/31 2208 Active House Staff 08/31 2208 Active Patient Data 08/31 2208 Active Code Status 08/31 220 Active Saline Lock 08/31 2153 Active Misc Message 08/31 2153 Active ED Holding Orders 08/31 2153 Active Admit to inpatient 08/31 215 Active Vital Signs 08/31 215 Active Code Status 08/31 215 Complete TROPONIN LEVEL 08/31 1608 Complete CBC WITHOUT DIFFERENTIAL 08/31 1608 Complete BASIC METABOLIC PANEL 08/31 1608 Complete EKG 08/31 1608 Active Intake & Output 08/31 1607 Active VTE Mechanical Prophylaxis 08/31 UNK Active Vital Signs 08/31 UNK Active PSYCHIATRIC CONSULT 08/31 UNK Active Current Medications Sig/Jenny Start time Last Medication Dose Stop Time Status Admin Prednisone 50 MG DAILY 09/02 899 AC 09/02 900 Amlodipine Besylate 10 MG DAILY 09/01 899 AC (Norvasc) Azithromycin 500 MG DAILY 09/01 899 AC (Zithromax) Sodium Chloride 250 ML (Normal Saline 0.9%) Budesonide/ 2 PUF BID 09/01 899 AC Formoterol Fumarate (SYMBICORT) Carvedilol 12.5 MG BID 09/01 899 AC (Coreg) Clonidine 0.1 MG BID 09/01 899 AC (Catapres) Lorazepam 1 MG TID 09/01 899 AC (Ativan) 09/08 858 Prednisone 60 MG DAILY 09/01 899 AC 09/01 900 Sertraline HCl 100 MG DAILY 09/01 899 AC (Zoloft) Heparin Sodium 5,000 UNIT Q8 09/01 599 AC (Porcine) Sodium Chloride 1,000 ML ONCE ONE 08/31 224 AC (Normal Saline 0.9%) 09/01 120 Acetylcysteine 2 ML BID 09/01 2231 AC (Mucosol 20%) Guaifenesin 600 MG Q12 08/31 223 AC (Mucinex) Albuterol Sulfate 2 PUF Q4 HRS NEEDED PRN 08/31 2214 AC (Ventolin) Albuterol Sulfate 3 ML Q4 HRS NEEDED PRN 08/31 2214 AC (Proventil) Trazodone HCl 50 MG QPM PRN 08/31 2214 AC (Desyrel) Laboratory Tests 08/31/17 1655: Anion Gap 12, Estimated GFR 17 L, BUN/Creatinine Ratio 13.0, Glucose 97, Calcium 8.7, Troponin I 0.02, CBC w Diff NO MAN DIFF REQ, RBC 4.02 L, MCV 90.4, MCH 29.4, MCHC 32.6 L, RDW 14.4, MPV 7.3 L, Gran % 75.2, Lymphocytes % 14.8 L , Monocytes % 8.5, Eosinophils % 1.2, Basophils % 0.3, Absolute Granulocytes 5.9 , Absolute Lymphocytes 1.2, Absolute Monocytes 0.7 H, Absolute Eosinophils 0.1, Absolute Basophils 0 Microbiology 08/31 2234 BLOOD: Blood Culture - ORD 08/31 2234 BLOOD: Blood Culture - ORD 08/31 2222 URINE ROUT: Legionella Antigen - COMP 08/31 2222 URINE ROUT: Streptococcus pneumoniae Antigen (M - COMP 08/31 221 LOWER RESP: Respiratory Culture - ORD 08/31 2209 LOWER RESP: Gram Stain - ORD Patient on initial presentation was resting comfortably at bedside no respiratory distress however significant rhonchi and wheezing were noted. Patient has failed outpatient treatment prior to arrival in which further outpatient treatment would be medically harmful discussed admission with patient who agrees and has no questions p Patient's chest x-ray still pending prior to admission Discussed hand off with Yoanna Mack Initial ED EK bpm,nsr Hand-Off Endorsed To: Mary Couch Endorsed Time: 2025 Pending: Xray (Dwain Ernandez) Departure Departure Disposition: STILL A PATIENT Condition: Stable Clinical Impression Primary Impression: COPD exacerbation Secondary Impressions: RIMA (acute kidney injury), Hypertension Referrals: Hugh Gerber MD (PCP/Family) Departure Forms: Customer Survey General Discharge Information Admission Note Spoke With: Robbie Mcguire MD Documentation of Exam: Documentation of any treatments & extenuating circumstances including Concerns Regarding Discharge (functional status, medication knowledge or non-compliance, living conditions, etc.) that warrant an admission rather than observation: [ Patient has failed outpatient treatment of COPD exacerbation which patient requires IV steroids, IV antibiotics repeat nebulizer treatments blood pressure regulation pulmonary consultation] (Dwain Ernandez) Departure Prescriptions: Current Visit Scripts Lorazepam (Ativan) 1 MG PO TID #30 TAB PA/ASSISTANT DISTRICT ATTORNEY Co-Sign Statement Statement: ED Attending supervision documentation- [x] I saw and evaluated the patient. I have also reviewed all the pertinent lab results and diagnostic results. I agree with the findings and the plan of care as documented in the PA's/ASSISTANT DISTRICT ATTORNEY's documentation. 08/31/17, 21:40.... pt with dyspnea, copd exacerbation, now comfortable after supportive meds.... merits admission for further care. [] I have reviewed the ED Record and agree with the PA's/ASSISTANT DISTRICT ATTORNEY's documentation. [] Additions or exceptions (if any) to the PAs/ASSISTANT DISTRICT ATTORNEY's note and plan are summarized below: [] (Kirill WIN,Moreno Pablo) Critical Care Note Critical Care Note Critical Care Time: non-applicable (Dwain Ernandez)
--- NOTE | 2017-08-31 20:27 | RADIOLOGY REPORT ---
EXAMINATION: XR CHEST CLINICAL INFORMATION: Cough. COMPARISON: 08/25/2017 TECHNIQUE: 2 views of the chest were obtained. FINDINGS: The lungs are well expanded with blunting at the costophrenic angles. This is fairly similar to prior and could represent pleural thickening versus small effusion. No dense consolidation. No pneumothorax. No edema. The cardiomediastinal silhouette is unchanged, with a tortuous and calcified aorta. Multilevel degenerative changes throughout the spine. Lower thoracic vertebral body compression deformity noted. IMPRESSION: Mild blunting of the costophrenic angles could represent pleural thickening versus small pleural effusions. There is no consolidation. No edema.
--- NOTE | 2017-08-31 20:58 | History & Physical ---
Vanessa Jimenez MD,[facility] 08/31/172056: General Information and HPI MD Statement: I have seen and personally examined MANUEL CURIEL and documented this H&P. The patient is a 71 year old F who presented with a patient stated chief complaint of [wheezing]. 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 Bascially her symptoms started 2 weeks ago, with URTI; runny nose and sneezing. She lives in assisted living facility and had contact with several sick patient. For the last week, she started to have worsening of cough, SOB and wheezing. She also reported being more tired and SOB with excertion, some chills but denied any sputum or fever. Patient presented to ED 1 week and was discharged on by mouth prednisone and Bactrim, however she reported no improvement and she decided to come back. She also reported an episode of loose BM today. Patient was last discharged from in June 2017, after management of HTN urgency, which was considered to partially be related to anxiety. She last visited Dr Amaya 2 w ago, and according to her blood pressure medications were adjusted. She noted that she charts her BP and the readings are usually less than 160mmhg. Patient denies any chest pain, change in vision, urine or stool color. Last Echo 06/2017 with EF of 60% with diast HF grade 1. She stopped smoking 4m ago adn denied drinkimg alcohol. basleine ambulates without assisstance. Allergies/Medications Allergies: Coded Allergies: No Known Allergies (12/05/15) Home Med list Albuterol Sulfate (Proair Hfa) 8.5 GM HFA.AER.AD 2 PUF INH PRN COPD (Reported ) Albuterol Sulfate 2.5 MG/3 ML VIAL.NEB 1 Vial INH/REG PRN COPD (Reported) Amlodipine Besylate 10 MG TABLET 1 TAB PO DAILY HTN (Reported) Budesonide/Formoterol Fumarate (Symbicort 80-4.5 Mcg Inhaler) 80 MCG-4.5 MCG/ ACTUATION HFA.AER.AD 2 PUF INH BID copd (Reported) Carvedilol (Coreg) 25 MG TABLET 12.5 MG PO BID htn (Reported) Clonidine HCl 0.1 MG TABLET 1 TAB PO BID BLOOD PRESSURE Lorazepam (Ativan) 0.5 MG TABLET 1 MG PO TID ANXIETY Losartan (Cozaar) 100 MG TABLET 1 TAB PO DAILY htn (Reported) Prednisone (Deltasone) 20 MG TABLET 3 TAB PO DAILY WHEEZING BEGIN TOMORROW Sertraline HCl (Zoloft) 100 MG TABLET 1 TAB PO DAILY depression (Reported) Sulfamethoxazole/Trimethoprim (Bactrim Ds Tablet) 800 MG-160 MG TABLET 1 TAB PO BID copd Trazodone HCl 50 MG TABLET 1 TAB PO QPM PRN insomnia (Reported) Past History Travel History Traveled to [place] past 21 day No Medical History Neurological: TIA 2009 EENT: NONE Cardiovascular: hypertension, hyperlipidemia, PVD Respiratory: bronchitis, COPD Gastrointestinal: LACTOSE INTOLERANT Hepatic: hepatitis C, TREATED Renal: chronic kidney disease, proliferative GN Musculoskeletal: osteoporosis, LEFT HIP FRACTURE 2016 LEFT HIP DISLOCATION X 2 Psychiatric: alcohol dependence, anxiety, depression Endocrine: NONE Blood Disorders: NONE Cancer(s): NONE P[employer]OV[employer] MAN/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: NONE Other Medical Hx: Cryoglobulinemia History of MRSA: No History of VRE: No History of CDIFF: No Surgical History Surgical History: hernia repair-inguinal, hernia repair-umbilical, hip replacement, HERNIA,VARICOSE VEINS Arterial intervention tonsilloectomy LEFT HIP Past Family/Social History Family History Relations & Conditions if any SISTER FATHER MOTHER BROTHER (Myocardial infarction age of 4343 years old). . FATHER FATHER (Liver and lung cancer). . MOTHER MOTHER (Alcoholism and pheochromocytoma). . Relation not specified for: Alcoholism in mother Family hx of lung cancer FH: lung cancer FH: myocardial infarction Psychosocial History Who Do You Live With? self Services at Home: Nursing Primary Language: Yi Living Will? unknown Functional Ability ADLs Independent: dressing, eating, toileting, bathing. Ambulation: independent IADLs Independent: shopping, housework, finances, food prep, telephone. Review of Systems Review of Systems Constitutional: Reports: see HPI. Exam & Diagnostic Data Last 24 Hrs of Vital Signs/I&O Vital Signs Date Time Temp Pulse Resp B/P B/P Pulse O2 O2 Flow FiO2 Mean Ox Delivery Rate 08/31 2128 98.6 52 20 133/65 93 Room Air 08/31 2033 98.6 62 20 166/79 08/31 2032 98.6 62 20 166/79 92 Room Air 08/31 2016 196/86 08/31 1914 98.2 54 18 194/82 20 Room Air 08/31 1826 95 08/31 1812 98.0 56 24 200/90 96 Room Air 08/31 1605 98.9 62 20 200/92 95 Room Air Physical Exam General Appearance Alert, Oriented X3, Cooperative, No Acute Distress Skin No Significant Lesion Skin Temp/Moisture Exam: Warm/Dry Sepsis Skin Exam (color): Normal for Ethnicity HEENT Atraumatic, EOMI Cardiovascular Normal S1, Normal S2 Lungs Normal Air Movement, wheezing, ronchi bilateral Abdomen Soft, mild tenderness in deep palpation Neurological Normal Speech, Strength at 5/5 X4 Ext Extremities No Edema Last 24 Hrs of Labs/[place]: Laboratory Tests 08/31/17 1655: Anion Gap 12, Estimated GFR 17 L, BUN/Creatinine Ratio 13.0, Glucose 97, Calcium 8.7, Troponin I 0.02, CBC w Diff NO MAN DIFF REQ, RBC 4.02 L, MCV 90.4, MCH 29.4, MCHC 32.6 L, RDW 14.4, MPV 7.3 L, Gran % 75.2, Lymphocytes % 14.8 L , Monocytes % 8.5, Eosinophils % 1.2, Basophils % 0.3, Absolute Granulocytes 5.9 , Absolute Lymphocytes 1.2, Absolute Monocytes 0.7 H, Absolute Eosinophils 0.1, Absolute Basophils 0 Microbiology 08/31 2349 BLOOD: Blood Culture - RECD 08/31 233 BLOOD: Blood Culture - RECD 08/31 2234 BLOOD: Blood Culture - CAN Cancelled: Cancelled via OE: WRONG ORDER 08/31 2222 URINE ROUT: Legionella Antigen - COMP 08/31 2222 URINE ROUT: Streptococcus pneumoniae Antigen (M - COMP 08/31 2209 LOWER RESP: Respiratory Culture - ORD 08/31 2209 LOWER RESP: Gram Stain - ORD Assessment/Plan Assessment: Patient is 71y F presented with wheezing and dry cough h/o URTI 2 weeks ago-failed outpatient treatment BP medication adjusted 2 weeks ago PMH of HTN, Hlip, COPD (stopped smoking 4m ago), TIA (2009), 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 There is no consolidation. No edema. Chest CT: 1. Bibasilar dependent infiltrates. 2. Trace bilateral pleural effusions. 3. There are stable small lung nodules unchanged since 07/17/2016. Largest measuring 3 mm. No further imaging would be recommended. Patient was admitted to GM floor for management of following conditions: Respiratory distress, COPD exacerbation/pneumonia Failed outpatient prednisone and Bactrim AK I and CK D History of hypertension with anxiety One episode of loose bowel movement - Admit patient to general medicine floor - Vital signs, O2 supplement as needed - BP currently stable, monitor - IV fluids 1 bag - Ceftriaxone and azithromycin - TRC nebs - pysch consult - follow cultures - Consider Nephro if Cr Not improved - Losartan on hold - avoid NSAID - Consider urine lytes if Cr not improved in AM - continue home medication - Continue prednisolon home dose - Consider C Diff if still loose BM Heart healthy diet DVT ppx: ALPS, heparin FC As Ranked By This Provider Problem List: 1. RIMA (acute kidney injury) 2. Pneumonia 3. COPD exacerbation Core Measures/Misc (01/04) Acute Coronary Syndrome ACS Diagnosis: No Congestive Heart Failure Congestive Heart Failure Diagnosis No Cerebrovascular Accident CVA/TIA Diagnosis: No VTE (View Protocol) VTE Risk Factors Age>40 No Mechanical VTE Prophylaxis d/t N/A MechProphylax Ordered No VTE Pharm Prophylaxis d/t NA PharmProphylax ordered Sepsis (View protocol) Sepsis Present: No Sanjay WIN,[facility] 09/01/17 0116: Resident Review Statement Resident Statement: examined this patient, discussed with validation intern, agreed with validation intern, reviewed EMR data (avail), discussed with nursing, reviewed images Other Findings: Patient is a 71-year-old female with past medical history significant for COPD not on home oxygen, hypertension (history of uncontrolled hypertension), PVD, diastolic dysfunction, TIA in 2009, hyperlipidemia, depression, anxiety, hepatitis C status post treatment Sovaldi, history of proliferative glomerulonephritis and cryoglobulinemia followed by Dr. Gee. Patient presented to ED with chief complaint of nonproductive cough and chest congestion. Patient reported that 2 weeks ago started to have URTI like symptoms nasal congestion, sore throat, mild shortness of breath, poor appetite, body ache and fatigue, positive sick contact. Patient had a visit to primary care physician on August 21 and was prescribed prednisone and azithromycin, on August 25 had a visit to the ED because of persistent symptoms and was prescribed Bactrim and prednisone. Patient reported compliance with medication however had no change in her symptoms and decided to come to ED for evaluation. Patient reported diarrhea 1 this morning, took 2 tablets of antidiarrheal medication. Denied any abdominal pain, nausea or vomiting. Patient had a visit to Dr. Vital 2 weeks ago and was told to follow up in 3-5 months as her blood pressure was stable. Patient is off hydralazine (rash) and Lasix. She takes amlodipine, carvedilol and losartan for blood pressure for now. Patient denied use of NSAIDs. Used [id number] Mucinex with no symptom relief On admission blood pressure is 200/92, medicated and subsequent reading 166/79, pulse 62, temperature 98.9, saturating 92% on room air Physical exam as above Labs pertinent to white blood cell 7.9, platelet 422, H&H 11.8/36.3, sodium 134, potassium 4.5, BUN/creatinine 35/2.7 with baseline creatinine 2.1 Chest x-ray IMPRESSION: Mild blunting of the costophrenic angles could represent pleural thickening versus small pleural effusions. There is no consolidation. No edema. CT chest IMPRESSION: 1. Bibasilar dependent infiltrates. 2. Trace bilateral pleural effusions. 3. There are stable small lung nodules unchanged since 07/17/2016. Largest measuring 3 mm. No further imaging would be recommended. Problem list #Community-acquired pneumonia #RIMA on CKD possibly Bactrim induced versus dehydration #Uncontrolled hypertension #Severe anxiety Plan Admit to general medical floor Vitals every shift Sputum culture, blood culture Legionella and Streptococcus pneumonia urine antigen Ceftriaxone and azithromycin IV Mucinex and Mucomyst Continue home inhalers and nebs Hold Bactrim Prednisone p.o. quick tapering Continue blood pressure medication except for losartan given elevated creatinine 1 bag of IV fluid normal saline running at 75 cc/h Repeat BEP in a.m. Obtain UA Psych consultation Continue Ativan at home dose Consider nephrology consultation if creatinine did not improve DVT prophylaxis heparin subcutaneous and outs Diet heart healthy Code full Maynor WIN, [facility] 09/01/17 0310: Attending MD Review Statement Attending Statement Attending MD Statement: examined this patient, discuss w/resident/PA/FOSTER WINDER, agreed w/resident/PA/FOSTER WINDER, reviewed images, amended to note Attending Assessment/Plan: 71 yo F with biopsy proven proliferative glomerulonephritis 2/2 to Hep C associated with cryoglobulinemia, COPD, CKD stage 4, PVD s/p stents, severe anxiety, HTN, TIA/ stroke, is here for evaluation of dyspnea, wheezing and dry cough. Also, visiting nurse noted that patient's BP was 196/96, hence sent to ER. Patient reports URI symptoms started 2 weeks ago, was started on Zpak and fluticasone nasal spray by her PCP on August 21. On August 25, her PCP sent her to the ER for elevated BP. Her BP was controlled and she was prescribed prednisone taper and Bactrim for her COPDE. She reports her dyspnea was getting better but her wheezing and congestion was getting worse along with the dry cough. She was recently admitted to [facility] (June 2017) for hypertensive urgency and RIMA on CKD due to NSAID use. Her losartan was held on admission but resumed by Preventive Maintenance Coordinator once her renal functions improved. She came off the hydralazine as it caused her skin reaction/ itching. She denies use of NSAIDS. She reports good oral intake. Vitals: On ER arrival, BP was 200/92 --> 166/79 after ativan and BP meds, otherwise stable vitals. Exam: AAO, in mild respiratory distress, tearful, dry mucosa, Chest coarse crepts/ rales on the left >right base, air entry is good, no wheeze. Labs: no leukocytosis, Na 134, bicarb 21, BUN 35, creat 2.7 (baseline 1.5-2.0), trop neg. CXR: mild blunting of costophrenic angles pleural thickening vs small pleural effusions. CT chest: bibasilar infiltrates, focal consolidation with surrounding groundglass airspace opacity at both lung bases, emphysematous changes. Lung nodule unchanged. Trace b/l pleural effusions. EKG: sinus rhythm, LVH, Qtc 406. Echo (2018): EF >60%, stage 1 diastolic dysfunction. Assessment and plan: 1. Bibasilar community acquired pneumonia 2. Mild COPD exacerbation 3. RIMA on CKD stage 4 in the setting of Bactrim use, ARB and volume depletion 4. Metabolic acidosis 5. History of glomerulonephritis, Hep C and cryoglobulinemia 6. Uncontrolled hypertension 7. Severe anxiety - Admit to General medicine - Panculture, urine legionella and strep Ag - IV ceftriaxone and azithro - No need for IV steroids, will give rapid prednisone taper - TRC nebs, add mucinex - Gentle hydration, hold off bactrim and NSAIDs - Trend renal functions - Check urine lytes - Hold losartan - If renal functions do not improve, consult nephrology - Resume coreg, amlodipine and clonidine for BP - Psych consult for severe anxiety (patient requested) DVT ppx Hep SC. Full code.
--- NOTE | 2017-08-31 21:30 | Admission Certification ---
Admission Certification Certification Statement - As attending physician, I certify that at the time of - admission, based on clinical presentation, severity of - symptoms, need for further diagnostic testing and - therapeutic interventions, and risk of adverse outcomes - without in-hospital treatment, in my clinical assessment, - this patient requires an acute hospital stay for a minimum - of two nights or longer. I have also considered psychsocial - factors such as support system, advanced age, financial - issues, cognitive issues, and failed out-patient treatments, - past re-admission history, safety of patient, and lack of - compliance as applicable. Specific rationale supporting this admission is: Severe anxiety, bibasilar pneumonia, mild COPD exacerbation, RIMA on CKD.
--- NOTE | 2017-08-31 21:44 | CT SCAN REPORT ---
EXAMINATION: CT CHEST WITHOUT CONTRAST CLINICAL INFORMATION: Shortness of breath. COMPARISON: Chest x-ray 08/31/2017. CT chest 07/17/2016 TECHNIQUE: Multidetector volumetric CT imaging of the chest was done. Axial MIP volume rendering provided. Sagittal and coronal reformatted images were obtained. DLP: 186.07 mGy-cm FINDINGS: LUNGS: There is bibasilar infiltrates at the dependent lung. There is focal consolidation with surrounding groundglass airspace opacity at both lung bases. There is emphysematous changes of lung. There are scattered 3 mm or less lung nodules seen on the prior CT of chest 07/17/2016 which are unchanged. Some are small calcified granuloma. The central bronchial airways are open. MEDIASTINUM: No mediastinal mass or significant lymphadenopathy. There is vascular calcifications of the aorta and the origin of great vessels. No aneurysm of the aorta. There is coronary artery calcification. There is no pericardial effusion. PLEURA: There are trace dependent bilateral pleural effusions. AXILLA: No lymphadenopathy. UPPER ABDOMEN: Unremarkable. OSSEOUS STRUCTURES: Multilevel degenerative spondylosis of the spine. Stable compression deformity of the T12 vertebrae. IMPRESSION: 1. Bibasilar dependent infiltrates. 2. Trace bilateral pleural effusions. 3. There are stable small lung nodules unchanged since 07/17/2016. Largest measuring 3 mm. No further imaging would be recommended.
[2017-08-31] MEDS ORDERED: COZAAR100 M1 PO (21:50)
[2017-08-31] MEDS ORDERED: SYMBICORT 16010.2 GM INH (21:51)
[2017-08-31] MEDS ORDERED: ATIVAN0.5 M1 PO ×2 (21:53→21:55)
[2017-08-31] MEDS ORDERED: SYMBICORT 80-10.2 GM INH (21:53)
[2017-08-31 23:11] VITALS: BP 130/78
[2017-09-01 06:32] VITALS: BP 140/80
--- NOTE | 2017-09-01 07:28 | PN- Housestaff ---
Jesus Mooney 09/01/17 0728: Subjective Follow-up For: COPD exacerbation RIMA on CKD - most likely secondary to Bactrim use Anxiety Hypertensive urgency Subjective: Patient very anxious this morning and crying. She requests to see a psychiatrist today and reports she had an appointment to see one this morning. Review of Systems Constitutional: Reports: see HPI. Objective Last 24 Hrs of Vital Signs/I&O Vital Signs Date Time Temp Pulse Resp B/P B/P Pulse O2 O2 Flow FiO2 Mean Ox Delivery Rate 09/01 0849 Room Air 09/01 0840 95 Room Air 09/01 0811 56 140/80 09/01 0811 56 140/80 09/01 0810 56 140/80 09/01 0800 94 Room Air 09/01 0632 98.0 56 20 140/80 94 Room Air 08/31 2345 Room Air 08/31 2311 97.4 53 20 130/78 91 Room Air 08/31 2129 98.6 52 20 133/65 93 Room Air 08/31 2034 98.6 62 20 166/79 08/31 2033 98.6 62 20 166/79 92 Room Air 08/31 2017 196/86 08/31 1914 98.2 54 18 194/82 20 Room Air 08/31 1826 95 08/31 1812 98.0 56 24 200/90 96 Room Air 08/31 1605 98.9 62 20 200/92 95 Room Air Intake & Output 09/01 1600 09/01 0800 09/01 0000 Intake Total 450 Output Total 200 Balance 250 Intake, IV 450 Output, Urine 200 Patient 103 lb Weight Weight Reported by Patient Measurement Method Physical Exam General Appearance: Alert, Oriented X3, Cooperative, anxious Cardiovascular: Regular Rate, Normal S1, Normal S2 Lungs: BL wheezing Abdomen: Normal Bowel Sounds, Soft, No Tenderness Extremities: No Edema Current Medications: Current Medications Sig/Jenny Start time Last Medication Dose Route Stop Time Status Admin Acetylcysteine 4 ML BID 09/01 0900 DC INH Acetylcysteine 2 ML BID 09/01 0900 AC INH Acetylcysteine 2 ML BID 09/01 2231 DC INH Albuterol Sulfate 3 ML BID 09/01 2100 AC INH Albuterol Sulfate 2 PUF Q4 HRS NEEDED PRN 08/31 2214 AC INH Albuterol Sulfate 3 ML Q4 HRS NEEDED PRN 05/14 2215 DC 09/01 INH 0838 Albuterol Sulfate 3 ML ONCE ONE 08/31 1615 DC 08/31 INH 08/31 1616 1824 Albuterol Sulfate 3 ML ONCE ONE 08/31 1615 DC INH 08/31 1616 Albuterol Sulfate 3 ML ONCE ONE 08/31 1615 DC INH 08/31 1616 Amlodipine Besylate 10 MG DAILY 09/01 0900 AC 09/01 PO 0810 Azithromycin 500 MG DAILY 09/01 0900 AC 09/01 Sodium Chloride 250 ML IV 0820 Azithromycin 500 MG ONCE ONE 09/01 1999 DC 08/31 Sodium Chloride 250 ML IV 08/31 Budesonide/ 2 PUF BID 09/01 0900 AC 09/01 Formoterol Fumarate INH 0811 Carvedilol 12.5 MG BID 09/01 0900 AC 09/01 PO 0811 Carvedilol 12.5 MG ONCE ONE 09/01 1999 DC 08/31 PO 08/31 Ceftriaxone Sodium 1,000 MG DAILY 09/01 0900 AC 09/01 IV 0811 Ceftriaxone Sodium 0 .STK-MED ONE 08/31 213 DC .ROUTE Ceftriaxone Sodium 1,000 MG ONCE ONE 08/31 2100 DC 08/31 IV 08/31 2101 2129 Clonidine 0.1 MG BID 09/01 0900 AC 09/01 PO 0811 Clonidine 0 .STK-MED ONE 08/31 2022 DC PO Clonidine 0.2 MG ONE ONE 09/01 1999 DC 08/31 PO 08/31 Guaifenesin 600 MG Q12 08/31 2230 AC 09/01 PO 0810 Heparin Sodium 5,000 UNIT Q8 09/01 0600 AC 09/01 (Porcine) SC 0532 Ipratropium [place] 2.5 ML ONCE ONE 08/31 1615 DC 08/31 INH 08/31 1616 1824 Lorazepam 1 MG TID 09/01 0900 AC 09/01 PO 09/08 0859 0809 Lorazepam 0 .STK-MED ONE 09/01 1955 DC PO Lorazepam 1 MG ONE ONE 08/31 194 DC 08/31 PO 08/31 Prednisone 10 MG DAILY 09/04 0900 AC PO 09/04 09 Prednisone 20 MG DAILY 09/03 0900 AC PO 09/03 09 Prednisone 50 MG DAILY 09/02 09 DC PO 09/02 09 Prednisone 30 MG DAILY 09/02 09 AC PO 09/02 900 Prednisone 60 MG DAILY 09/01 09 DC PO 09/01 09 Prednisone 40 MG DAILY 09/01 0900 DC 09/01 PO 09/01 0901 0810 Prednisone 60 MG ONCE ONE 08/31 1615 DC 08/31 PO 08/31 1616 1924 Sertraline HCl 100 MG DAILY 09/01 0900 AC 09/01 PO 0810 Sodium Chloride 1,000 ML ONCE ONE 08/31 2245 AC 08/31 IV 09/01 1204 2318 Trazodone HCl 50 MG QPM PRN 08/31 2215 AC 08/31 PO 2318 Last 24 Hrs of Lab/[place] Results Last 24 Hrs of Labs/Mics: Laboratory Tests 09/01/17 0633: Anion Gap 8, Estimated GFR 19 L, BUN/Creatinine Ratio 13.6, CBC w Diff Pending, WBC Pending, RBC Pending, Hgb Pending, Hct Pending, MCV Pending, MCH Pending, MCHC Pending, RDW Pending, Plt Count Pending, MPV Pending, Gran % Pending, Lymphocytes % Pending, Monocytes % Pending, Eosinophils % Pending, Basophils % Pending, Absolute Granulocytes Pending, Absolute Lymphocytes Pending, Absolute Monocytes Pending, Absolute Eosinophils Pending, Absolute Basophils Pending 09/01/17 0350: Urinalysis LIGHT H, Urine Color YEL, Urine Clarity CLEAR, Urine pH 6.0, Ur Specific [place] 1.015, Urine Protein 100 H, Urine Ketones NEG, Urine Nitrite NEG, Urine Bilirubin NEG, Urine Urobilinogen 0.2, Ur Leukocyte Esterase NEG, Ur Microscopic SEDIMENT EXAMINED, Urine RBC RARE, Urine WBC RARE, Ur Epithelial Cells RARE, Urine Bacteria RARE H, Urine Mucus FEW, Urine Hemoglobin NEG, Urine Glucose NEG 08/31/17 1655: Anion Gap 12, Estimated GFR 17 L, BUN/Creatinine Ratio 13.0, Glucose 97, Calcium 8.7, Troponin I 0.02, CBC w Diff NO MAN DIFF REQ, RBC 4.02 L, MCV 90.4, MCH 29.4, MCHC 32.6 L, RDW 14.4, MPV 7.3 L, Gran % 75.2, Lymphocytes % 14.8 L , Monocytes % 8.5, Eosinophils % 1.2, Basophils % 0.3, Absolute Granulocytes 5.9 , Absolute Lymphocytes 1.2, Absolute Monocytes 0.7 H, Absolute Eosinophils 0.1, Absolute Basophils 0 Microbiology 08/31 2350 BLOOD: Blood Culture - RECD 08/31 2330 BLOOD: Blood Culture - RECD 08/31 223 BLOOD: Blood Culture - CAN Cancelled: Cancelled via OE: WRONG ORDER 08/31 2222 URINE ROUT: Legionella Antigen - COMP 08/31 2222 URINE ROUT: Streptococcus pneumoniae Antigen (M - COMP 08/31 2209 LOWER RESP: Respiratory Culture - COLB 08/31 2209 LOWER RESP: Gram Stain - COLB Assessment/Plan Assessment: Ms. 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, anxiety, depression (on sertraline, trazodone and Ativan), PVD s/p stent to R common iliac and femoral artery, osteoporosis and alcohol abuse( quit 6 years ago), CKD presented to the ED with chief complaint of wheezing Problem list: #COPD exacerbation #RIMA on CKD - most likely secondary to Bactrim use #Anxiety #Hypertensive urgency #Dysphagia Plan: TRC/nebs PRN Start Ceftin 250 mg, changed to once daily due to RIMA as per pharmacy recommendations Continue prednisone taper Continue sertraline, trazodone, clonidine, lorazepam Monitor Cr Barium esophagram for dysphagia Vitals every shift Pulm consult Psych consult Nephro consult Diet: Renal DVT: sc Heparin Code: Full Problem List: 1. COPD exacerbation Pain Ratin Pain Location: NA Pain Goal: Remain pain free Pain Plan: NA Tomorrow's Labs & Rationales: CBC, BEP Arden WIN,Maria L 09/01/17 1344: Attending MD Review Statement Attending Statement Attending MD Statement: examined this patient, discuss w/resident/PA/EXTENDED DAY TEACHER, agreed w/resident/PA/EXTENDED DAY TEACHER, reviewed EMR data (avail), discussed with nursing, discussed with case mgmt, reviewed images, amended to note Attending Assessment/Plan: Patient seen and examined, still coughing. Not requiring any oxygen. Patient has been seen by pulmonology Dr. Merritt. Vital Signs Date Time Temp Pulse Resp B/P B/P Pulse O2 O2 Flow FiO2 Mean Ox Delivery Rate 09/01 0849 Room Air 09/01 0840 95 Room Air 09/01 0811 56 140/80 09/01 0811 56 140/80 09/01 0810 56 140/80 09/01 0800 94 Room Air 09/01 0632 98.0 56 20 140/80 94 Room Air 08/31 2345 Room Air 08/31 2311 97.4 53 20 130/78 91 Room Air 08/31 2129 98.6 52 20 133/65 93 Room Air 08/31 2034 98.6 62 20 166/79 08/31 203 98.6 62 20 166/79 92 Room Air 08/31 2016 196/86 08/31 1914 98.2 54 18 194/82 20 Room Air 08/31 1826 95 08/31 1812 98.0 56 24 200/90 96 Room Air 08/31 1605 98.9 62 20 200/92 95 Room Air on exam: aox3. nad. cv; s1, s2, rrr resp; clear abd; soft, nt, bs+ ext; no edema Laboratory Tests 09/01 09/01 0633 0350 Chemistry Sodium (137 - 145 mmol/L) 132 L Potassium (3.5 - 5.1 mmol/L) 5.2 H Chloride (98 - 107 mmol/L) 104 Carbon Dioxide (22 - 30 mmol/L) 20 L Anion Gap (5 - 16) 8 BUN (7 - 17 mg/dL) 34 H Creatinine (0.5 - 1.0 mg/dL) 2.5 H Estimated GFR (>60 ml/min) 19 L BUN/Creatinine Ratio (7 - 25 %) 13.6 Hematology CBC w Diff NO MAN DIFF REQ WBC (4.8 - 10.8 /CUMM) 5.9 RBC (4.20 - 5.40 /CUMM) 3.43 L Hgb (12.0 - 16.0 G/DL) 10.4 L Hct (37 - 47 %) 30.7 L MCV (81.0 - 99.0 FL) 89.5 MCH (27.0 - 31.0 PG) 30.4 MCHC (33.0 - 37.0 G/DL) 34.0 RDW (11.5 - 14.5 %) 13.7 Plt Count (130 - 400 /CUMM) 355 MPV (7.4 - 10.4 FL) 8.6 Gran % (42.2 - 75.2 %) 87.3 H Lymphocytes % (20.5 - 51.1 %) 10.1 L Monocytes % (1.7 - 9.3 %) 2.5 Eosinophils % (0 - 5 %) 0 Basophils % (0.0 - 2.0 %) 0.1 Absolute Granulocytes (1.4 - 6.5 /CUMM) 5.1 Absolute Lymphocytes (1.2 - 3.4 /CUMM) 0.6 L Absolute Monocytes (0.10 - 0.60 /CUMM) 0.1 Absolute Eosinophils (0.0 - 0.7 /CUMM) 0 Absolute Basophils (0.0 - 0.2 /CUMM) 0 Urines Urinalysis LIGHT H Urine Color (YEL,AMB,STR) YEL Urine Clarity (CLEAR) CLEAR Urine pH (5.0 - 8.0) 6.0 Ur Specific [place] (1.001 - 1.035) 1.015 Urine Protein (NEG,<30 MG/DL) 100 H Urine Ketones (NEG) NEG Urine Nitrite (NEG) NEG Urine Bilirubin (NEG) NEG Urine Urobilinogen (0.1 - 1.0 EU/dl) 0.2 Ur Leukocyte Esterase (NEG) NEG Ur Microscopic SEDIMENT EXAMINED Urine RBC (0 - 5 /HPF) RARE Urine WBC (0 - 2 /HPF) RARE Ur Epithelial Cells (NONE,FEW) RARE Urine Bacteria (NEG/NONE) RARE H Urine Mucus (FEW,NONE) FEW Urine Hemoglobin (NEG) NEG Urine Glucose (N MG/DL) NEG 08/31 1655 Chemistry Sodium (137 - 145 mmol/L) 134 L Potassium (3.5 - 5.1 mmol/L) 4.5 Chloride (98 - 107 mmol/L) 100 Carbon Dioxide (22 - 30 mmol/L) 21 L Anion Gap (5 - 16) 12 BUN (7 - 17 mg/dL) 35 H Creatinine (0.5 - 1.0 mg/dL) 2.7 H Estimated GFR (>60 ml/min) 17 L BUN/Creatinine Ratio (7 - 25 %) 13.0 Glucose (65 - 99 mg/dL) 97 Calcium (8.4 - 10.2 mg/dL) 8.7 Troponin I (< 0.11 ng/ml) 0.02 Hematology CBC w Diff NO MAN DIFF REQ WBC (4.8 - 10.8 /CUMM) 7.9 RBC (4.20 - 5.40 /CUMM) 4.02 L Hgb (12.0 - 16.0 G/DL) 11.8 L Hct (37 - 47 %) 36.3 L MCV (81.0 - 99.0 FL) 90.4 MCH (27.0 - 31.0 PG) 29.4 MCHC (33.0 - 37.0 G/DL) 32.6 L RDW (11.5 - 14.5 %) 14.4 Plt Count (130 - 400 /CUMM) 422 H MPV (7.4 - 10.4 FL) 7.3 L Gran % (42.2 - 75.2 %) 75.2 Lymphocytes % (20.5 - 51.1 %) 14.8 L Monocytes % (1.7 - 9.3 %) 8.5 Eosinophils % (0 - 5 %) 1.2 Basophils % (0.0 - 2.0 %) 0.3 Absolute Granulocytes (1.4 - 6.5 /CUMM) 5.9 Absolute Lymphocytes (1.2 - 3.4 /CUMM) 1.2 Absolute Monocytes (0.10 - 0.60 /CUMM) 0.7 H Absolute Eosinophils (0.0 - 0.7 /CUMM) 0.1 Absolute Basophils (0.0 - 0.2 /CUMM) 0 A/P: 71 y/o F with pmh sig for HTN, Hlip, COPD (stopped smoking 4m ago), TIA ( 2009), 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 Appreciate pulm input. Abx have been switched to ceftin. Will order esophagogram. Continue Oral Prednisone, TRC nebs. Please call nephro consult. Will follow psych recs. Continue other current mx. DVT px; hep sq.
[2017-09-01 08:13] LABS: ABSOLUTE BASOPHIL COUNT 0 /CUMM (0.0-0.2); ABSOLUTE EOSINOPHIL COUNT 0 /CUMM (0.0-0.7); ABSOLUTE GRANULOCYTE CT 5.1 /CUMM (1.4-6.5); ABSOLUTE LYMPH COUNT 0.6 /CUMM (1.2-3.4); ABSOLUTE MONOCYTE COUNT 0.1 /CUMM (0.10-0.60); BASOPHIL % 0.1 % (0.0-2.0); EOSINOPHIL % 0 % (0-5); MEAN CORPUSCULAR HGB 30.4 PG (27.0-31.0); MEAN CORPUSCULAR VOLUME 89.5 FL (81.0-99.0)
[2017-09-01 08:50] LABS: MEAN PLATELET VOLUME 8.6 FL (7.4-10.4); PLATELET COUNT 355 /CUMM (130-400); RBC DISTRIBUTION WIDTH 13.7 % (11.5-14.5); RED BLOOD CELL CT 3.43 /CUMM (4.20-5.40); WHITE BLOOD CELL COUNT 5.9 /CUMM (4.8-10.8)
[2017-09-01 08:59] LABS: HEMATOCRIT 30.7 % (37-47)
[2017-09-01 09:43] LABS: GRANULOCYTE % 87.3 % (42.2-75.2)
--- NOTE | 2017-09-01 09:50 | Cons- Pulmonary ---
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 Bascially her symptoms started 2 weeks ago, with URTI; runny nose and sneezing. She lives in assisted living facility and had contact with several sick patient. For the last week, she started to have worsening of cough, SOB and wheezing. She also reported being more tired and SOB with excertion, some chills but denied any sputum or fever. Patient presented to ED 1 week and was discharged on by mouth prednisone and Bactrim, however she reported no improvement and she decided to come back. She also reported an episode of loose BM today. Patient was last discharged from in June 2017, after management of HTN urgency, which was considered to partially be related to anxiety. She last visited Dr Amaya 2 w ago, and according to her blood pressure medications were adjusted. She noted that she charts her BP and the readings are usually less than 160mmhg. Patient denies any chest pain, change in vision, urine or stool color. Last Echo 06/2017 with EF of 60% with diast HF grade 1. She stopped smoking 4m ago adn denied drinkimg alcohol. simeon ambulates without assisstance. Allergies/Medications Allergies: Coded Allergies: No Known Allergies (12/05/15) Home Med List: Albuterol Sulfate (Proair Hfa) 8.5 GM HFA.AER.AD 2 PUF INH PRN COPD (Reported ) Albuterol Sulfate 2.5 MG/3 ML VIAL.NEB 1 Vial INH/REG PRN COPD (Reported) Amlodipine Besylate 10 MG TABLET 1 TAB PO DAILY HTN (Reported) Budesonide/Formoterol Fumarate (Symbicort 80-4.5 Mcg Inhaler) 80 MCG-4.5 MCG/ ACTUATION HFA.AER.AD 2 PUF INH BID copd (Reported) Carvedilol (Coreg) 25 MG TABLET 12.5 MG PO BID htn (Reported) Clonidine HCl 0.1 MG TABLET 1 TAB PO BID BLOOD PRESSURE Lorazepam (Ativan) 0.5 MG TABLET 1 MG PO TID ANXIETY Losartan (Cozaar) 100 MG TABLET 1 TAB PO DAILY htn (Reported) Prednisone (Deltasone) 20 MG TABLET 3 TAB PO DAILY WHEEZING BEGIN TOMORROW Sertraline HCl (Zoloft) 100 MG TABLET 1 TAB PO DAILY depression (Reported) Sulfamethoxazole/Trimethoprim (Bactrim Ds Tablet) 800 MG-160 MG TABLET 1 TAB PO BID copd Trazodone HCl 50 MG TABLET 1 TAB PO QPM PRN insomnia (Reported) Review of Systems Review of Systems Constitutional: Reports: see HPI. Past History Travel History Traveled to [place] past 21 day No Medical History Blood Transfusion Hx: Yes Type of Reaction: HEPATITIS C Neurological: TIA 2009 EENT: NONE Cardiovascular: hypertension, hyperlipidemia, PVD Respiratory: bronchitis, COPD Gastrointestinal: LACTOSE INTOLERANT Hepatic: hepatitis C, TREATED Renal: chronic kidney disease, proliferative GN Musculoskeletal: osteoporosis, LEFT HIP FRACTURE 2016 LEFT HIP DISLOCATION X 2 Psychiatric: alcohol dependence, anxiety, depression Endocrine: NONE Blood Disorders: NONE Cancer(s): NONE BATTERY TEST ENGINEER/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: NONE Other Medical Hx: Cryoglobulinemia Surgical History Surgical History: hernia repair-inguinal, hernia repair-umbilical, hip replacement, HERNIA,VARICOSE VEINS Arterial intervention tonsilloectomy LEFT HIP Family History Relations & Conditions If Any: SISTER FATHER MOTHER BROTHER (Myocardial infarction age of 4343 years old). . FATHER FATHER (Liver and lung cancer). . MOTHER MOTHER (Alcoholism and pheochromocytoma). . Relation not specified for: Alcoholism in mother Family hx of lung cancer FH: lung cancer FH: myocardial infarction Psychosocial History Where Do You Live? Home Who Do You Live With? self Services at Home: Nursing Primary Language: Hungarian Smoking Status: Former Smoker Living Will? unknown Functional Ability ADLs Independent: dressing, eating, toileting, bathing. Ambulation: independent IADLs Independent: shopping, housework, finances, food prep, telephone. Exam & Diagnostic Data Last 24 Hrs of Vital Signs/I&O Vital Signs Date Time Temp Pulse Resp B/P B/P Pulse O2 O2 Flow FiO2 Mean Ox Delivery Rate 09/01 0849 Room Air 09/01 0840 95 Room Air 09/01 0811 56 140/80 05/15 0811 56 140/80 09/01 0810 56 140/80 09/01 0800 94 Room Air 09/01 0632 98.0 56 20 140/80 94 Room Air 08/31 2345 Room Air 08/31 2311 97.4 53 20 130/78 91 Room Air 08/31 2129 98.6 52 20 133/65 93 Room Air 08/31 2034 98.6 62 20 166/79 08/31 2033 98.6 62 20 166/79 92 Room Air 08/31 2016 196/86 08/31 1914 98.2 54 18 194/82 20 Room Air 08/31 1826 95 08/31 1812 98.0 56 24 200/90 96 Room Air 08/31 1605 98.9 62 20 200/92 95 Room Air Intake & Output 09/01 1600 09/01 0800 09/01 0000 Intake Total 450 Output Total 200 Balance 250 Intake, IV 450 Output, Urine 200 Patient 103 lb Weight Weight Reported by Patient Measurement Method Last 48 Hrs of Labs/[place]: Laboratory Tests 09/01/17 0633: Anion Gap 8, Estimated GFR 19 L, BUN/Creatinine Ratio 13.6, CBC w Diff NO MAN DIFF REQ, RBC 3.43 L, MCV 89.5, MCH 30.4, MCHC 34.0, RDW 13.7, MPV 8.6, Gran % 87.3 H, Lymphocytes % 10.1 L, Monocytes % 2.5, Eosinophils % 0, Basophils % 0.1, Absolute Granulocytes 5.1, Absolute Lymphocytes 0.6 L, Absolute Monocytes 0.1, Absolute Eosinophils 0, Absolute Basophils 0 09/01/17 0350: Urinalysis LIGHT H, Urine Color YEL, Urine Clarity CLEAR, Urine pH 6.0, Ur Specific [place] 1.015, Urine Protein 100 H, Urine Ketones NEG, Urine Nitrite NEG, Urine Bilirubin NEG, Urine Urobilinogen 0.2, Ur Leukocyte Esterase NEG, Ur Microscopic SEDIMENT EXAMINED, Urine RBC RARE, Urine WBC RARE, Ur Epithelial Cells RARE, Urine Bacteria RARE H, Urine Mucus FEW, Urine Hemoglobin NEG, Urine Glucose NEG 08/31/17 1655: Anion Gap 12, Estimated GFR 17 L, BUN/Creatinine Ratio 13.0, Glucose 97, Calcium 8.7, Troponin I 0.02, CBC w Diff NO MAN DIFF REQ, RBC 4.02 L, MCV 90.4, MCH 29.4, MCHC 32.6 L, RDW 14.4, MPV 7.3 L, Gran % 75.2, Lymphocytes % 14.8 L , Monocytes % 8.5, Eosinophils % 1.2, Basophils % 0.3, Absolute Granulocytes 5.9 , Absolute Lymphocytes 1.2, Absolute Monocytes 0.7 H, Absolute Eosinophils 0.1, Absolute Basophils 0 08/31/17 0350: Ur Random Creatinine 58.3, Ur Random Sodium 26 L, Ur Random Potassium 26.1, Fraction Sodium Excret 0.8 Microbiology 08/31 2222 URINE ROUT: Legionella Antigen - COMP 08/31 2222 URINE ROUT: Streptococcus pneumoniae Antigen (M - COMP Assessment/Plan Impression/Plan: General Appearance Alert, Oriented X3, Cooperative, No Acute Distress Skin No Significant Lesion Skin Temp/Moisture Exam: Warm/Dry Sepsis Skin Exam (color): Normal for Ethnicity HEENT Atraumatic, EOMI Cardiovascular Normal S1, Normal S2 Lungs Normal Air Movement, wheezing, ronchi bilateral Abdomen Soft, mild tenderness in deep palpation Neurological Normal Speech, Strength at 5/5 X4 Ext Extremities No Edema Ct chest IMPRESSION: 1. Bibasilar dependent infiltrates. 2. Trace bilateral pleural effusions. 3. There are stable small lung nodules unchanged since 07/17/2016. Largest measuring 3 mm. No further imaging would be recommended. DICTATED BY: Sung Barajas MD DATE/TIME DICTATED:08/31/172130 SIGNIFICANT DATA CT scan as noted above Cultures are pending Pulmonary function test done in 2014 showed mild obstructive lung disease with partial reversibility creatinine chronically elevated at 2.5 sodium is low. White count 7.9 with some left shift. IMPRESSION This is a lady with previous history of mild to moderate COPD, significant smoking history, hepatitis C, previous plasmapheresis for significant cryoglobulinemia with acute kidney injury, recent treatment for hep C per patient, on and off dysphagia which needs evaluation, now comes in with COPD which appears to be mild to moderate with exacerbation with cough sputum production and chest congestion Uncontrolled hypertension which is now improving with probable renal artery stenosis with severe peripheral vascular disease Chronic kidney disease due to hep C with previous glomerulonephritis with history of plasmapheresis Bilateral bibasilar atelectasis no significant pneumonia with mild bilateral pleural effusion On and off dysphagia which needs evaluation Severe peripheral vascular disease with all the risk factors Acute kidney injury with recent Bactrim use and was on ARB Significant anxiety as well. RECOMMENDATION Continue prednisone Continue albuterol nebulizer as needed Continue Symbicort and start Spiriva 1 puff daily Sputum culture if any Change antibiotic to Ceftin 250 twice a day Might benefit from a nephrology evaluation Please order a barium esophagogram to evaluate her dysphagia in the lower esophagus (not magnified barium swallow) Patient might benefit from renal artery ultrasound Continue blood pressure management We'll follow closely Consult Acknowledgment - Thank you for your consult request.
--- NOTE | 2017-09-01 13:35 | Cons- Psychiatry ---
Psychiatric Consult Date of Consult: 09/01/17 Reason for Consult: severe anxiety h/o hypertensive emergency and COPD Allergies: Coded Allergies: No Known Allergies (12/05/15) Past History Past Medical History Neurological: TIA 2009 EENT: NONE Cardiovascular: hypertension, hyperlipidemia, PVD Respiratory: bronchitis, COPD Gastrointestinal: LACTOSE INTOLERANT Hepatic: hepatitis C, TREATED Renal: chronic kidney disease, proliferative GN Musculoskeletal: osteoporosis, LEFT HIP FRACTURE 2016 LEFT HIP DISLOCATION X 2 Psychiatric: alcohol dependence, anxiety, depression Endocrine: NONE Blood Disorders: NONE Cancer(s): NONE 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/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: NONE Past Surgical History Surgical History: hernia repair-inguinal, hernia repair-umbilical, hip replacement, HERNIA,VARICOSE VEINS Arterial intervention tonsilloectomy LEFT HIP Psychosocial History Strengths/Capabilities: 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, and reports that she is excellent listening to and talking with people Physical Limitations (Interventions): None Psychiatric Treatment History Diagnosis: History of alcohol use disorder Risk Factors: age (under 24/over 65), chronic/serious med cond., SA/MH hospitalized, lives alone Assessment/Plan Impression: Patient is 71y F with PMH of HTN, Hlip, COPD (stopped smoking 4m ago), TIA (2009 ), 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 Pt has severe anxiety and this has been associated with episodes of hypertensive urgency pressures in 200s/100s. she has had her BP meds adjusted as an outpatient. She has been prescribed ativan 1 mg TID and zoloft 100 mg qDaily. Pt reports she has been a worrier her whole life. States she cries easily but has sustained recent losses. Still cries over sister she lost 8 years ago. She is doing well in the assisted living she lives in and has good social support. She reports she is constantly nervous afraid bad things are going to happen. She jumps to the worst conclusion no matter the situation. She is still often tearful when she is anxious, becomes overwhelmed with emotion. Her energy has been low but appetite is good. She has no intention to hurt herself. Laboratory Tests 09/01/17 0633: Anion Gap 8, Estimated GFR 19 L, BUN/Creatinine Ratio 13.6, CBC w Diff NO MAN DIFF REQ, RBC 3.43 L, MCV 89.5, MCH 30.4, MCHC 34.0, RDW 13.7, MPV 8.6, Gran % 87.3 H, Lymphocytes % 10.1 L, Monocytes % 2.5, Eosinophils % 0, Basophils % 0.1, Absolute Granulocytes 5.1, Absolute Lymphocytes 0.6 L, Absolute Monocytes 0.1, Absolute Eosinophils 0, Absolute Basophils 0 09/01/17 0350: Urinalysis LIGHT H, Urine Color YEL, Urine Clarity CLEAR, Urine pH 6.0, Ur Specific [place] 1.015, Urine Protein 100 H, Urine Ketones NEG, Urine Nitrite NEG, Urine Bilirubin NEG, Urine Urobilinogen 0.2, Ur Leukocyte Esterase NEG, Ur Microscopic SEDIMENT EXAMINED, Urine RBC RARE, Urine WBC RARE, Ur Epithelial Cells RARE, Urine Bacteria RARE H, Urine Mucus FEW, Urine Hemoglobin NEG, Urine Glucose NEG 08/31/17 1655: Anion Gap 12, Estimated GFR 17 L, BUN/Creatinine Ratio 13.0, Glucose 97, Calcium 8.7, Troponin I 0.02, CBC w Diff NO MAN DIFF REQ, RBC 4.02 L, MCV 90.4, MCH 29.4, MCHC 32.6 L, RDW 14.4, MPV 7.3 L, Gran % 75.2, Lymphocytes % 14.8 L , Monocytes % 8.5, Eosinophils % 1.2, Basophils % 0.3, Absolute Granulocytes 5.9 , Absolute Lymphocytes 1.2, Absolute Monocytes 0.7 H, Absolute Eosinophils 0.1, Absolute Basophils 0 Microbiology 08/310 BLOOD: Blood Culture - RES 08/31 233 BLOOD: Blood Culture - RES 08/31 2234 BLOOD: Blood Culture - CAN Cancelled: Cancelled via OE: WRONG ORDER 08/31 2222 URINE ROUT: Legionella Antigen - COMP 08/31 2222 URINE ROUT: Streptococcus pneumoniae Antigen (M - COMP 08/31 2209 LOWER RESP: Respiratory Culture - CAN Cancelled: SPECIMEN NOT RECEIVED IN LABORATORY 08/31 2209 LOWER RESP: Gram Stain - CAN Cancelled: SPECIMEN NOT RECEIVED IN LABORATORY Medical Hx: See above Past Psych Hx: No inpatient stays. Hx of 40 years of EtOH dep detoxed herself and has not drank in years, no urges cravings or close calls. Recently stoped tobacco. States she has been on ativan for several years originally prescribed by Rolando Xiao. No suicide attempts. FH: Mother with depression. Her sister that passed also has depression SH: Pt lives in assisted living. She is close with both daughters Home Med list Albuterol Sulfate (Proair Hfa) 8.5 GM HFA.AER.AD 2 PUF INH PRN COPD (Reported ) Albuterol Sulfate 2.5 MG/3 ML VIAL.NEB 1 Vial INH/REG PRN COPD (Reported) Amlodipine Besylate 10 MG TABLET 1 TAB PO DAILY HTN (Reported) Budesonide/Formoterol Fumarate (Symbicort 80-4.5 Mcg Inhaler) 80 MCG-4.5 MCG/ ACTUATION HFA.AER.AD 2 PUF INH BID copd (Reported) Carvedilol (Coreg) 25 MG TABLET 12.5 MG PO BID htn (Reported) Clonidine HCl 0.1 MG TABLET 1 TAB PO BID BLOOD PRESSURE Lorazepam (Ativan) 0.5 MG TABLET 1 MG PO TID ANXIETY Losartan (Cozaar) 100 MG TABLET 1 TAB PO DAILY htn (Reported) Prednisone (Deltasone) 20 MG TABLET 3 TAB PO DAILY WHEEZING BEGIN TOMORROW Sertraline HCl (Zoloft) 100 MG TABLET 1 TAB PO DAILY depression (Reported) Sulfamethoxazole/Trimethoprim (Bactrim Ds Tablet) 800 MG-160 MG TABLET 1 TAB PO BID copd Trazodone HCl 50 MG TABLET 1 TAB PO QPM PRN insomnia (Reported) MSE: Pt is a 71 yo F sitting in bed in [facility]. She is alert and oriented x 3. There are no movement abnormalities. Her speech is clear with normal rate and rhythm. Her mood is ok affect is tearful at times. Quite emotional. She is worried about multiple stressors. Her thought process is linear her thought content is preoccupied no SI HI or delusions. Her insight and judgment are good. A/ 71 y/o F with COPD and h/o hypertensive emergency who has generalizied anxiety disorder and h/o depression. P/ -Raise zoloft to 150 mg -Would not change her ativan dosing as zoloft can increase her anxiety at first. This can be slowly tapered when she is outpatient which she is amenable to
[2017-09-01 14:38] VITALS: BP 168/72
[2017-09-01 21:51] VITALS: BP 120/66
[2017-09-02 06:18] VITALS: BP 216/94
[2017-09-02 06:58] VITALS: BP 206/80
--- NOTE | 2017-09-02 07:21 | PN- Housestaff ---
See Addendum Subjective Follow-up For: COPD exacerbation RIMA on CKD - most likely secondary to Bactrim use Anxiety Hypertensive urgency Subjective: Patient reports a wet cough with sputum production. Denies blurry vision, SOB, CP, nausea, vomiting, OLIVA or anxiety Review of Systems Constitutional: Reports: see HPI. Objective Last 24 Hrs of Vital Signs/I&O Vital Signs Date Time Temp Pulse Resp B/P B/P Pulse O2 O2 Flow FiO2 Mean Ox Delivery Rate 09/02 0822 50 170/80 09/02 0717 65 206/80 09/02 0658 206/80 09/02 0618 97.6 53 20 216/94 94 Room Air 09/02 0551 216/94 09/02 0551 53 216/94 09/02 0000 Room Air 09/01 2151 97.9 53 24 120/66 94 Room Air 09/01 1959 95 Room Air 09/01 1813 71 170/88 09/01 1813 71 170/88 09/01 1600 92 Room Air 09/01 1438 97.9 68 20 168/72 92 Room Air 09/01 0849 Room Air Physical Exam General Appearance: Alert, Oriented X3, Cooperative Cardiovascular: Regular Rate, Normal S1, Normal S2 Lungs: Clear to Auscultation, Normal Air Movement Abdomen: Normal Bowel Sounds, Soft, No Tenderness Extremities: No Edema Current Medications: Current Medications Sig/Jenny Start time Last Medication Dose Route Stop Time Status Admin Acetylcysteine 4 ML BID 09/01 09 DC INH Acetylcysteine 2 ML BID 09/01 09 AC INH Albuterol Sulfate 3 ML BID 09/01 2100 AC 09/01 INH 1957 Albuterol Sulfate 2 PUF Q4 HRS NEEDED PRN 08/31 221 AC 09/01 INH 1907 Albuterol Sulfate 3 ML Q4 HRS NEEDED PRN 08/31 2215 DC 09/01 INH 0838 Amlodipine Besylate 10 MG DAILY 09/01 899 AC 09/02 PO 0551 Azithromycin 500 MG DAILY 09/01 899 DC 09/01 Sodium Chloride 250 ML IV 0820 Budesonide/ 2 PUF BID 09/01 09 AC 09/02 Formoterol Fumarate INH 0824 Carvedilol 12.5 MG BID 09/01 09 AC 09/02 PO 0717 Ceftriaxone Sodium 1,000 MG DAILY 09/01 09 DC 09/01 IV 0811 Cefuroxime Sodium 250 MG DAILY 09/01 1200 AC 09/02 PO 0825 Clonidine 0.1 MG BID 09/01 0900 AC 09/02 PO 0551 Guaifenesin 600 MG Q12 08/31 2230 AC 09/02 PO 0824 Heparin Sodium 5,000 UNIT Q8 09/01 0600 AC 09/02 (Porcine) SC 0532 Lorazepam 1 MG TID 09/01 0900 AC 09/02 PO 09/08 0859 0601 Patient Medication 1 ED ONE ONE 09/01 1000 DC Teaching ED 09/01 1001 Prednisone 10 MG DAILY 09/04 0900 AC PO 09/04 0901 Prednisone 20 MG DAILY 09/03 0900 AC PO 09/03 0901 Prednisone 30 MG DAILY 09/02 0900 AC 09/02 PO 09/02 0901 0825 Prednisone 40 MG DAILY 09/01 0900 DC 09/01 PO 09/01 0901 0810 Sertraline HCl 150 MG DAILY 09/02 0900 AC 09/02 PO 0825 Sertraline HCl 100 MG DAILY 09/01 0900 DC 09/01 PO 0810 Sodium Chloride 1,000 ML ONCE ONE 08/31 2245 DC 08/31 IV 09/01 1204 2318 Trazodone HCl 50 MG QPM PRN 08/31 2215 AC 09/01 PO 2126 Last 24 Hrs of Lab/[place] Results Last 24 Hrs of Labs/Mics: Laboratory Tests 09/02/17 0544: Sodium Pending, Potassium Pending, Chloride Pending, Carbon Dioxide Pending, Anion Gap Pending, BUN Pending, Creatinine Pending, BUN/Creatinine Ratio Pending , CBC w Diff Pending, WBC Pending, RBC Pending, Hgb Pending, Hct Pending, MCV Pending, MCH Pending, MCHC Pending, RDW Pending, Plt Count Pending, MPV Pending Assessment/Plan Assessment: Ms. 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, anxiety, depression (on sertraline, trazodone and Ativan), PVD s/p stent to R common iliac and femoral artery, osteoporosis and alcohol abuse( quit 6 years ago), CKD presented to the ED with chief complaint of wheezing Problem list: #COPD exacerbation #RIMA on CKD - most likely secondary to Bactrim use #Anxiety #Hypertensive urgency #Dysphagia Plan: TRC/nebs PRN Please give acapella for mucus secretions Continue Ceftin 250 mg daily (changed to once daily due to RIMA as per pharmacy recommendations) Continue prednisone taper Continue sertraline, trazodone, clonidine, lorazepam Monitor Cr Barium esophagram scheduled for today due to dysphagia Vitals every shift Will obtain complement and urine spot for Protein/Cr as per Nephro Appreciate Pulm recommendations Appreciate Psych recommendations Appreciate Nephro recommendations Diet: Renal DVT: sc Heparin Code: Full Problem List: 1. COPD exacerbation 2. RIMA (acute kidney injury) Pain Ratin Pain Location: NA Pain Goal: Remain pain free Pain Plan: NA Tomorrow's Labs & Rationales: BEP
[2017-09-02 08:22] VITALS: BP 170/80
[2017-09-02 08:57] LABS: ABSOLUTE BASOPHIL COUNT 0 /CUMM (0.0-0.2); ABSOLUTE EOSINOPHIL COUNT 0 /CUMM (0.0-0.7); ABSOLUTE GRANULOCYTE CT 5.9 /CUMM (1.4-6.5); ABSOLUTE LYMPH COUNT 1.5 /CUMM (1.2-3.4); ABSOLUTE MONOCYTE COUNT 0.5 /CUMM (0.10-0.60); BASOPHIL % 0.3 % (0.0-2.0); EOSINOPHIL % 0.2 % (0-5); GRANULOCYTE % 73.5 % (42.2-75.2); HEMATOCRIT 30.9 % (37-47); MEAN CORPUSCULAR HGB 30.4 PG (27.0-31.0); MEAN CORPUSCULAR HGB CONC 33.8 G/DL (33.0-37.0); MEAN CORPUSCULAR VOLUME 90.1 FL (81.0-99.0); MEAN PLATELET VOLUME 8.7 FL (7.4-10.4); PLATELET COUNT 326 /CUMM (130-400); RBC DISTRIBUTION WIDTH 14.6 % (11.5-14.5); RED BLOOD CELL CT 3.43 /CUMM (4.20-5.40)
--- NOTE | 2017-09-02 09:58 | PN- Pulmonary ---
Subjective HPI/Critical Care Issues: Patient reports a wet cough with sputum production. Denies blurry vision, SOB, CP, nausea, vomiting, OLIVA or anxiety Review of Systems Constitutional: Reports: see HPI. Objective Current Medications: Current Medications Sig/Jenny Start time Last Medication Dose Route Stop Time Status Admin Acetylcysteine 2 ML BID 09/01 0900 AC INH Albuterol Sulfate 3 ML BID 09/01 2100 AC 09/01 INH 1957 Albuterol Sulfate 2 PUF Q4 HRS NEEDED PRN 08/31 221 AC 09/01 INH 1907 Amlodipine Besylate 10 MG DAILY 09/01 0900 AC 09/02 PO 0551 Azithromycin 500 MG DAILY 09/01 09 DC 09/01 Sodium Chloride 250 ML IV 0820 Budesonide/ 2 PUF BID 09/01 0900 AC 09/02 Formoterol Fumarate INH 0824 Carvedilol 12.5 MG BID 09/01 0900 AC 09/02 PO 0717 Ceftriaxone Sodium 1,000 MG DAILY 09/01 0900 DC 09/01 IV 0811 Cefuroxime Sodium 250 MG DAILY 09/01 1200 AC 09/02 PO 0825 Clonidine 0.2 MG BID 09/02 2100 AC PO Clonidine 0.1 MG BID 09/01 0900 DC 09/02 PO 0551 Guaifenesin 600 MG Q12 08/31 2230 AC 09/02 PO 0824 Heparin Sodium 5,000 UNIT Q8 09/01 06 AC 09/02 (Porcine) SC 0532 Lorazepam 1 MG TID 09/01 0900 AC 09/02 PO 09/08 0859 0601 Patient Medication 1 ED ONE ONE 09/01 1000 DC Teaching ED 09/01 1001 Prednisone 10 MG DAILY 09/04 0900 AC PO 09/04 0901 Prednisone 20 MG DAILY 09/03 0900 AC PO 09/03 0901 Prednisone 30 MG DAILY 09/02 0900 DC 09/02 PO 09/02 0901 0825 Sertraline HCl 150 MG DAILY 09/02 0900 AC 09/02 PO 0825 Sertraline HCl 100 MG DAILY 09/01 0900 DC 09/01 PO 0810 Sodium Chloride 1,000 ML ONCE ONE 08/31 2245 DC 08/31 IV 09/01 1204 2318 Trazodone HCl 50 MG QPM PRN 08/31 2214 AC 09/01 PO 2126 Vital Signs & I&O Last 24 Hrs of Vitals and I&O: Vital Signs Date Time Temp Pulse Resp B/P B/P Pulse O2 O2 Flow FiO2 Mean Ox Delivery Rate 09/02 0822 50 170/80 09/02 0717 65 206/80 09/02 0658 206/80 09/02 0618 97.6 53 20 216/94 94 Room Air 09/02 0551 216/94 09/02 0551 53 216/94 09/02 0000 Room Air 09/01 2151 97.9 53 24 120/66 94 Room Air 09/01 1959 95 Room Air 09/01 1813 71 170/88 09/01 1813 71 170/88 09/01 1600 92 Room Air 09/01 1438 97.9 68 20 168/72 92 Room Air Impression/Plan Impression/Plan Impression/Plan: General Appearance Alert, Oriented X3, Cooperative, No Acute Distress Skin No Significant Lesion Skin Temp/Moisture Exam: Warm/Dry Sepsis Skin Exam (color): Normal for Ethnicity HEENT Atraumatic, EOMI Cardiovascular Normal S1, Normal S2 Lungs Normal Air Movement, wheezing, ronchi bilateral Abdomen Soft, mild tenderness in deep palpation Neurological Normal Speech, Strength at 5/5 X4 Ext Extremities No Edema Ct chest IMPRESSION: 1. Bibasilar dependent infiltrates. 2. Trace bilateral pleural effusions. 3. There are stable small lung nodules unchanged since 07/17/2016. Largest measuring 3 mm. No further imaging would be recommended. DICTATED BY: Sung Barajas MD DATE/TIME DICTATED:08/31/172130 SIGNIFICANT DATA CT scan as noted above Cultures are pending Pulmonary function test done in 2014 showed mild obstructive lung disease with partial reversibility creatinine chronically elevated at 2.5 sodium is low. White count 7.9 with some left shift. IMPRESSION This is a lady with previous history of mild to moderate COPD, significant smoking history, hepatitis C, previous plasmapheresis for significant cryoglobulinemia with acute kidney injury, recent treatment for hep C per patient, on and off dysphagia which needs evaluation, now comes in with COPD which appears to be mild to moderate with exacerbation with cough sputum production and chest congestion Uncontrolled hypertension which is now improving with probable renal artery stenosis with severe peripheral vascular disease Chronic kidney disease due to hep C with previous glomerulonephritis with history of plasmapheresis Bilateral bibasilar atelectasis no significant pneumonia with mild bilateral pleural effusion On and off dysphagia which needs evaluation Severe peripheral vascular disease with all the risk factors Acute kidney injury with recent Bactrim use and was on ARB Significant anxiety as well. RECOMMENDATION Continue prednisone taper Continue albuterol nebulizer as needed Continue Symbicort and start Spiriva 1 puff daily Sputum culture if any Ceftin 250 twice a day for 5-7 days Please order a barium esophagogram to evaluate her dysphagia in the lower esophagus (not magnified barium swallow) Patient might benefit from renal artery ultrasound Continue blood pressure management We'll follow closely
--- NOTE | 2017-09-02 10:39 | Cons- Nephrology ---
General Information and HPI Consulting Request Date of Consult: 09/02/17 Requested By: Arden WIN,Maria L Source of Information: patient, old records History of Present Illness: This 71-year-old woman has a history of chronic kidney disease going back to 2014. She had presented with edema and worsening renal function ultimately requiring a closed renal biopsy which was performed at [facility] since , at the time of her presentation, that service was not available here at [facility]. This was in October 2014. 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 The patient is also positive for hepatitis C. She was treated with Sovaldi. Most recently, her viral load was nonexistent. She also did have on biopsy a focal and segmental glomerulosclerosis. Recently, she had been hospitalized and was found at that time to have an elevated blood pressure coupled with a creatinine that was roughly 2.0. She now is admitted with an exacerbation of her COPD and a possible pneumonia. It is noteworthy that on her June hospitalization, she had been taking Aleve prior to her admission. She has not taken any Advil or Aleve lately. However, on the discharge summary, part of the discharge medications mentioned was Advil. She has not taken any Advil since that time. She was also placed on Bactrim prior to her hospitalization here for this exacerbation. She denies any nausea or vomiting prior to coming into the hospital or any volume loss. She does report diarrhea this morning. She tells me that she is not had any active hep C RNA. She does note that her urine as of late has been foamy. Although not listed as allergy here, the office notes mention that she does have an intolerance to hydralazine. She also has been on losartan in an effort at RAAS interruption as well as control of blood pressure to help preserve her underlying renal function. She also apparently had a recent serum immunoelectrophoresis which was likewise negative. Of interest, her complements and 2016 were still low. She did not have any cryoglobulins in her bloodstream. Also of note, I do not think that the complements checked since then. Allergies/Medications Allergies: Coded Allergies: No Known Allergies (12/05/15) Home Med List: Albuterol Sulfate (Proair Hfa) 8.5 GM HFA.AER.AD 2 PUF INH PRN COPD (Reported ) Albuterol Sulfate 2.5 MG/3 ML VIAL.NEB 1 Vial INH/REG PRN COPD (Reported) Amlodipine Besylate 10 MG TABLET 1 TAB PO DAILY HTN (Reported) Budesonide/Formoterol Fumarate (Symbicort 80-4.5 Mcg Inhaler) 80 MCG-4.5 MCG/ ACTUATION HFA.AER.AD 2 PUF INH BID copd (Reported) Carvedilol (Coreg) 25 MG TABLET 12.5 MG PO BID htn (Reported) Clonidine HCl 0.1 MG TABLET 1 TAB PO BID BLOOD PRESSURE Lorazepam (Ativan) 0.5 MG TABLET 1 MG PO TID ANXIETY Losartan (Cozaar) 100 MG TABLET 1 TAB PO DAILY htn (Reported) Prednisone (Deltasone) 20 MG TABLET 3 TAB PO DAILY WHEEZING BEGIN TOMORROW Sertraline HCl (Zoloft) 100 MG TABLET 1 TAB PO DAILY depression (Reported) Sulfamethoxazole/Trimethoprim (Bactrim Ds Tablet) 800 MG-160 MG TABLET 1 TAB PO BID copd Trazodone HCl 50 MG TABLET 1 TAB PO QPM PRN insomnia (Reported) Current Medications: Current Medications Sig/Jenny Start time Last Medication Dose Route Stop Time Status Admin Acetylcysteine 2 ML BID 09/01 09 AC INH Albuterol Sulfate 3 ML BID 09/01 2100 AC 09/01 INH 1957 Albuterol Sulfate 2 PUF Q4 HRS NEEDED PRN 08/31 2214 AC 09/01 INH 1907 Amlodipine Besylate 10 MG DAILY 09/01 09 AC 09/02 PO 0551 Azithromycin 500 MG DAILY 09/01 09 DC 09/01 Sodium Chloride 250 ML IV 0820 Budesonide/ 2 PUF BID 09/01 09 AC 09/02 Formoterol Fumarate INH 0824 Carvedilol 12.5 MG BID 09/01 0900 AC 09/02 PO 0717 Ceftriaxone Sodium 1,000 MG DAILY 09/01 09 DC 09/01 IV 0811 Cefuroxime Sodium 250 MG DAILY 09/01 1200 AC 09/02 PO 0825 Clonidine 0.2 MG BID 09/02 2100 AC PO Clonidine 0.1 MG BID 09/01 0900 DC 09/02 PO 0551 Guaifenesin 600 MG Q12 08/31 2230 AC 09/02 PO 0824 Heparin Sodium 5,000 UNIT Q8 09/01 06 AC 09/02 (Porcine) SC 0532 Lorazepam 1 MG TID 09/01 0900 AC 09/02 PO 09/08 0859 0601 Patient Medication 1 ED ONE ONE 09/01 1000 DC Teaching ED 09/01 1001 Prednisone 10 MG DAILY 09/04 09 AC PO 09/04 09 Prednisone 20 MG DAILY 09/03 09 AC PO 09/03 09 Prednisone 30 MG DAILY 09/02 09 DC 09/02 PO 09/02 0901 0825 Sertraline HCl 150 MG DAILY 09/02 09 AC 09/02 PO 0825 Sertraline HCl 100 MG DAILY 09/01 09 DC 09/01 PO 0810 Sodium Chloride 1,000 ML ONCE ONE 08/31 2245 DC 08/31 IV 09/01 1204 2318 Trazodone HCl 50 MG QPM PRN 08/31 2215 AC 09/01 PO 2126 Past History Travel History Traveled to [place] past 21 day No Medical History Blood Transfusion Hx: Yes Type of Reaction: HEPATITIS C Neurological: CVA (2008) EENT: NONE Cardiovascular: hypertension, hyperlipidemia, PVD Respiratory: bronchitis, COPD Gastrointestinal: LACTOSE INTOLERANT Hepatic: hepatitis C, TREATED Renal: chronic kidney disease, proliferative GN Musculoskeletal: osteoporosis, LEFT HIP FRACTURE 2016 LEFT HIP DISLOCATION X 2 Psychiatric: alcohol dependence, anxiety, depression Endocrine: NONE Blood Disorders: NONE Cancer(s): 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 . FATHER FATHER (Liver and lung cancer). . MOTHER MOTHER (Alcoholism and pheochromocytoma). . Relation not specified for: Alcoholism in mother Family hx of lung cancer FH: lung cancer FH: myocardial infarction Psychosocial History Where Do You Live? Home Who Do You Live With? self Services at Home: Nursing Primary Language: Arabic Smoking Status: Former Smoker Living Will? unknown Functional Ability ADLs Independent: dressing, eating, toileting, bathing. Ambulation: independent IADLs Independent: shopping, housework, finances, food prep, telephone. Exam & Diagnostic Data Vital Signs and I&O Vital Signs Date Time Temp Pulse Resp B/P B/P Pulse O2 O2 Flow FiO2 Mean Ox Delivery Rate 09/02 0822 50 170/80 05/16 0717 65 206/80 09/02 0658 206/80 09/02 0618 97.6 53 20 216/94 94 Room Air 09/02 0551 216/09/02 0551 53 216/09/02 0000 Room Air 09/01 2151 97.9 53 24 120/66 94 Room Air 09/01 1959 95 Room Air 09/01 1813 71 170/09/01 1813 71 170/88 09/01 1600 92 Room Air 09/01 1438 97.9 68 20 168/72 92 Room Air Intake & Output 09/02 1600 09/02 0400 09/01 1600 09/01 0400 08/31 1600 08/31 0400 Intake Total 1760 Output Total 200 Balance 1560 Intake, IV 1160 Intake, Oral 600 Output, Urine 200 Patient 107 lb 103 lb Weight Weight Bed scale Reported by Patient Measurement Method Physical Exam General Appearance: well developed/nourished, no apparent distress, alert, awake , comfortable, thin Head: atraumatic, normal appearance Eyes: Bilateral: PERRL, EOMI. Ears, Nose, Throat: normal pharynx Neck: normal inspection, supple, trachea mid line, no midline tenderness Respiratory: rhonchi, rhonchi left lower base and left anterior chest, right side is clear. No rales. Cardiovascular: regular rate/rhythm Peripheral Pulses: 2+ tibialis posterior (R), 2+ tibialis posterior (L), 2+ dorsalis pedis (R), 2+ dorsalis pedis (L) Gastrointestinal: normal bowel sounds, soft, non-tender, no organomegaly Back: normal inspection, normal range of motion, vertebral tenderness Extremities: normal inspection, normal capillary refill, normal range of motion, no edema Neurologic/Psych: no motor/sensory deficits, awake, alert, oriented x 3, controlled area checker II- XII nml as tested Cranial Nerves: normal hearing, normal speech Skin: intact, normal color, warm/dry Lymphatic: no anterior cervical shawn Results Pertinent Lab Results: Laboratory Tests 09/02 09/01 0544 0633 Chemistry Sodium (137 - 145 mmol/L) 137 132 L Potassium (3.5 - 5.1 mmol/L) 4.7 5.2 H Chloride (98 - 107 mmol/L) 105 104 Carbon Dioxide (22 - 30 mmol/L) 23 20 L Anion Gap (5 - 16) 9 8 BUN (7 - 17 mg/dL) 38 H 34 H Creatinine (0.5 - 1.0 mg/dL) 2.3 H 2.5 H Estimated GFR (>60 ml/min) 21 L 19 L BUN/Creatinine Ratio (7 - 25 %) 16.5 13.6 Hematology CBC w Diff NO MAN DIFF REQ NO MAN DIFF REQ WBC (4.8 - 10.8 /CUMM) 8.0 5.9 RBC (4.20 - 5.40 /CUMM) 3.43 L 3.43 L Hgb (12.0 - 16.0 G/DL) 10.4 L 10.4 L Hct (37 - 47 %) 30.9 L 30.7 L MCV (81.0 - 99.0 FL) 90.1 89.5 MCH (27.0 - 31.0 PG) 30.4 30.4 MCHC (33.0 - 37.0 G/DL) 33.8 34.0 RDW (11.5 - 14.5 %) 14.6 H 13.7 Plt Count (130 - 400 /CUMM) 326 355 MPV (7.4 - 10.4 FL) 8.7 8.6 Gran % (42.2 - 75.2 %) 73.5 87.3 H Lymphocytes % (20.5 - 51.1 %) 19.3 L 10.1 L Monocytes % (1.7 - 9.3 %) 6.7 2.5 Eosinophils % (0 - 5 %) 0.2 0 Basophils % (0.0 - 2.0 %) 0.3 0.1 Absolute Granulocytes (1.4 - 6.5 /CUMM) 5.9 5.1 Absolute Lymphocytes (1.2 - 3.4 /CUMM) 1.5 0.6 L Absolute Monocytes (0.10 - 0.60 /CUMM) 0.5 0.1 Absolute Eosinophils (0.0 - 0.7 /CUMM) 0 0 Absolute Basophils (0.0 - 0.2 /CUMM) 0 0 09/01 08/31 0350 1655 Chemistry Sodium (137 - 145 mmol/L) 134 L Potassium (3.5 - 5.1 mmol/L) 4.5 Chloride (98 - 107 mmol/L) 100 Carbon Dioxide (22 - 30 mmol/L) 21 L Anion Gap (5 - 16) 12 BUN (7 - 17 mg/dL) 35 H Creatinine (0.5 - 1.0 mg/dL) 2.7 H Estimated GFR (>60 ml/min) 17 L BUN/Creatinine Ratio (7 - 25 %) 13.0 Glucose (65 - 99 mg/dL) 97 Calcium (8.4 - 10.2 mg/dL) 8.7 Troponin I (< 0.11 ng/ml) 0.02 Hematology CBC w Diff NO MAN DIFF REQ WBC (4.8 - 10.8 /CUMM) 7.9 RBC (4.20 - 5.40 /CUMM) 4.02 L Hgb (12.0 - 16.0 G/DL) 11.8 L Hct (37 - 47 %) 36.3 L MCV (81.0 - 99.0 FL) 90.4 MCH (27.0 - 31.0 PG) 29.4 MCHC (33.0 - 37.0 G/DL) 32.6 L RDW (11.5 - 14.5 %) 14.4 Plt Count (130 - 400 /CUMM) 422 H MPV (7.4 - 10.4 FL) 7.3 L Gran % (42.2 - 75.2 %) 75.2 Lymphocytes % (20.5 - 51.1 %) 14.8 L Monocytes % (1.7 - 9.3 %) 8.5 Eosinophils % (0 - 5 %) 1.2 Basophils % (0.0 - 2.0 %) 0.3 Absolute Granulocytes (1.4 - 6.5 /CUMM) 5.9 Absolute Lymphocytes (1.2 - 3.4 /CUMM) 1.2 Absolute Monocytes (0.10 - 0.60 /CUMM) 0.7 H Absolute Eosinophils (0.0 - 0.7 /CUMM) 0.1 Absolute Basophils (0.0 - 0.2 /CUMM) 0 Urines Urinalysis LIGHT H Urine Color (YEL,AMB,STR) YEL Urine Clarity (CLEAR) CLEAR Urine pH (5.0 - 8.0) 6.0 Ur Specific [place] (1.001 - 1.035) 1.015 Urine Protein (NEG,<30 MG/DL) 100 H Urine Ketones (NEG) NEG Urine Nitrite (NEG) NEG Urine Bilirubin (NEG) NEG Urine Urobilinogen (0.1 - 1.0 EU/dl) 0.2 Ur Leukocyte Esterase (NEG) NEG Ur Microscopic SEDIMENT EXAMINED Urine RBC (0 - 5 /HPF) RARE Urine WBC (0 - 2 /HPF) RARE Ur Epithelial Cells (NONE,FEW) RARE Urine Bacteria (NEG/NONE) RARE H Urine Mucus (FEW,NONE) FEW Urine Hemoglobin (NEG) NEG Urine Glucose (N MG/DL) NEG 08/31 0350 Urines Ur Random Creatinine (mg/dL) 58.3 Ur Random Sodium (30 - 90 mmol/L) 26 L Ur Random Potassium (mmol/L) 26.1 Fraction Sodium Excret (<1% %) 0.8 Assessment/Plan Assessment/Recommendations Assessment: 1. Acute kidney injury. Her creatinine coming in to the hospital was 2.7. Her blood pressure likewise has been more difficult to control as of late. Her most recent hospital stay prior to this hospital stay involved accelerated hypertension related to a colonoscopy. She was found to have a creatinine of 2.0. She also is taking Aleve on an intermittent basis. She does have a history of cryoglobulinemia glomerulonephritis. She also had focal sclerosis on the biopsy. Her hep C has been treated and is presumably gone. I mention this since the other thought would be his this simply worsening of her underlying glomerulonephritis? In terms of her serum creatinine going from 2.0-2.7, she had been placed on Bactrim because of her COPD exacerbation. In addition, she is being hospitalized for COPD exacerbation, she may very well be intravascularly volume depleted. Decreased intravascular volume could likewise contribute to a rising creatinine. Keep in mind, the change in renal function related to trimethoprim, is felt to be a spurious phenomenon. Specifically, the trimethoprim competitively inhibits the secretion of creatinine into the proximal convoluted tubule. The fractional excretion of sodium was likewise consistent with prerenal azotemia. 2. Chronic kidney disease. Her baseline serum creatinine had been 1.5 roughly. 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 Keep in mind, her blood pressure becoming more difficult to control could likewise worsening kidney function which in turn, her worsening blood pressure control may be due to worsening kidney function. She needs to absolutely avoid nonsteroidal anti-inflammatory drugs. Also, her degree of proteinuria needs to be estimated by protein to creatinine ratio. It would be most concerning if her degree of proteinuria is increasing in spite of treating her hepatitis C and using an angiotensin receptor brooks to preserve her kidney function and decrease her proteinuria. 3. History of hepatitis C. Her most recent RNAs were negative. 4. Hypertension. Would favor resuming the losartan. 5. COPD exacerbation versus pneumonia. She is currently on antibiotics. 6. Volume status. She does not appear to be by overloaded at this time. 7. History of anxiety and depression as well as a former history of ethanol abuse. She was also tobacco dependence. Recommendations: 1. Strict intakes and outputs. 2. Daily weights. 3. Please send a spot or random protein to creatinine ratio. Would also send a urinalysis. 4. With regards to a renal ultrasound, she does have a history of peripheral vascular disease. She is a known smoker. 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 To invoke renal artery stenosis would be invoke eating a second secondary cause of high blood pressure. She already has chronic kidney disease perhaps as a sufficient explanation for her high blood pressure. Incidentally, chronic renal disease due to proteinuric renal disease is the most common secondary cause of hypertension. Please note, renal artery stenosis is not. 5. Would also repeat the C3 and C4. I am not certain if it is helpful to obtain a hepatitis C viral load. This was negative in May of this year. 6. Records in our office would indicate that she is allergic to hydralazine. This needs to be explored.
--- NOTE | 2017-09-02 14:06 | RADIOLOGY REPORT ---
EXAMINATION: XR BARIUM SWALLOW/ESOPHAGRAM CLINICAL INFORMATION: Cough, wheezing. COMPARISON: None. TECHNIQUE: Barium swallow with air. FINDINGS: Normal swallowing reflex. Normal esophageal motility and distention. No mass or mucosal lesion is seen. No hiatal hernia. No reflux is seen in the supine position. Patient swallowed a barium tablet which demonstrates normal passage to the stomach. FLUOROSCOPY TIME: 1 minute, 27 seconds NUMBER OF IMAGES: 14 images IMPRESSION: Unremarkable barium study. Etiology of the patient's symptoms has not been determined.
[2017-09-02 15:13] VITALS: BP 180/88
--- NOTE | 2017-09-02 16:54 | Patient Discharge Instructions ---
Discharge Instructions General Discharge Information You were seen/treated for: COPD exacerbation RIMA You had these procedures: none Special Instructions: Follow up with your PCP-Dr. Gerber within 1 week of discharge Follow up with your marketing sales consultant-Dr. Honeycutt within 1 week of discharge Follow up with Outpatient psychiatry upon discharge. Your Seroquel was increased and will be further managed by the psychiatrist Complete your Prednisone taper and antibiotics Diet Continue normal diet: Yes Activity Full Activity/No Limits: Yes Acute Coronary Syndrome Inclusion Criteria At DC or during hospital stay patient has or had the following: ACS DIAGNOSIS No Discharge Core Measures Meds if any: Prescribed or Continued at Discharge Meds if any: NOT Prescribed or Continued at Discharge Congestive Heart Failure Inclusion Criteria At DC or during hospital stay patient has or had the following: CHF DIAGNOSIS No Discharge Core Measures Meds if any: Prescribed or Continued at Discharge Meds if any: NOT Prescribed or Continued at Discharge Cerebrovascular accident Inclusion Criteria At DC or during hospital stay patient has or had the following: CVA/TIA Diagnosis No Discharge Core Measures Meds if any: Prescribed or Continued at Discharge Meds if any: NOT Prescribed or Continued at Discharge Venous thromboembolism Inclusion Criteria VTE Diagnosis No VTE Type NONE VTE Confirmed by (Test) NONE Discharge Core Measures - Per Current guidelines, there needs to be overlap - treatment for the first 5 days of Warfarin therapy. - If discharged on Warfarin prior to 5 days of - overlap therapy, the patient will need to be - assessed for post discharge needs including - *Post discharge parental anticoagulation - *Warfarin and/or parental anticoagulation education - *Follow up date to check INR post discharge At least 5 days overlap therapy as Inpatient No Meds if any: Prescribed or Continued at Discharge Note: Overlap Therapy is Warfarin and Anticoagulant Meds if any: NOT Prescribed or Continued at Discharge
[2017-09-02] MEDS ORDERED: GUAIFENESIN ER600 MG PO (17:45)
[2017-09-02] MEDS ORDERED: PREDNISONE10 M2 PO (17:48)
[2017-09-02] MEDS ORDERED: SERTRALINE HCL50 MG PO (17:55)
[2017-09-02] MEDS ORDERED: CATAPRES0.2 MG PO (18:01)
[2017-09-02] MEDS ORDERED: LORAZEPAM1 M1 PO ×2 (18:06→18:15)
[2017-09-02] MEDS ORDERED: CLONIDINE HCL0.2 M1 PO (18:07)
--- NOTE | 2017-09-02 18:09 | PN- Psychiatry ---
Assessment/Plan Impression: Brief MD f/u note. "This is a lady with previous history of mild to moderate COPD, significant smoking history, hepatitis C, previous plasmapheresis for significant cryoglobulinemia with acute kidney injury, recent treatment for hep C per patient, on and off dysphagia which needs evaluation, now comes in with COPD which appears to be mild to moderate with exacerbation with cough sputum production and chest congestion Uncontrolled hypertension which is now improving with probable renal artery stenosis with severe peripheral vascular disease Chronic kidney disease due to hep C with previous glomerulonephritis with history of plasmapheresis Bilateral bibasilar atelectasis no significant pneumonia with mild bilateral pleural effusion On and off dysphagia which needs evaluation Severe peripheral vascular disease with all the risk factors Acute kidney injury with recent Bactrim use and was on ARB Significant anxiety as well." Spoke with resident. I spoke with Loraine this evening about her care and the events that have transpired since she tried to taper her Ativan on her own. August 25 the pt was in the ED and treated for high BP but never mentioned she had abruptly discontinued the Ativan. She came out of her room X 6 to come talk to me about anxious worries. I spoke with Amelia Helms APRN about her care. MSE: Pt is in a [place] near the computers on [place]. She is smiling and bright. no movement issues. Speech is wnl. Mood is good affect full. TP linear TC preoccupied with worry about her care. insight and judgment are good. A/ 71 y/o with severe ROBERT. -Pt needs to be dc/d with a script for Ativan 1 mg TID and given enough tabs to get to her outpatient psych appt in AUGUST. - She is anxious and will ask about her Ativan. She is not benzo-seeking JScruggsMD Suggestion: see imp Subjective Subjective: see imp Objective Last 24 Hrs of Vital Signs/I&O Vital Signs Date Time Temp Pulse Resp B/P B/P Pulse O2 O2 Flow FiO2 Mean Ox Delivery Rate 09/02 173 91 220/122 09/02 1739 91 220/122 09/02 1513 98.1 68 20 180/88 93 Room Air 09/02 1130 97 Room Air Room Air 09/02 0822 50 170/80 09/02 0717 65 206/80 09/02 0658 206/80 09/02 0618 97.6 53 20 216/94 94 Room Air 09/02 0551 216/94 09/02 0551 53 216/94 09/02 0000 Room Air 09/01 2150 97.9 53 24 120/66 94 Room Air 09/01 1958 95 Room Air 09/01 1812 71 170/88 09/01 1812 71 Intake & Output 09/02 1600 09/02 0800 09/02 0000 Intake Total 600 Output Total Balance 600 Intake, IV 0 Intake, Oral 600
[2017-09-02] MEDS ORDERED: CEFUROXIME250 M1 PO (18:18)
[2017-09-02 20:22] VITALS: BP 178/98
[2017-09-02 22:23] VITALS: BP 180/90
[2017-09-03 00:35] VITALS: BP 170/82
[2017-09-03 06:57] VITALS: BP 170/98
--- NOTE | 2017-09-03 07:10 | PN- Housestaff ---
See Addendum Subjective Follow-up For: COPD exacerbation RIMA on CKD - most likely secondary to Bactrim use Anxiety Hypertensive urgency Subjective: Patient reports whitish bowel movement and mild abdominal cramps. She reports she had a similar episode 3 years ago when diagnosed with MRSA. Denies fever, chills, nausea, vomiting or urinary symptoms Review of Systems Constitutional: Reports: see HPI. Objective Last 24 Hrs of Vital Signs/I&O Vital Signs Date Time Temp Pulse Resp B/P B/P Pulse O2 O2 Flow FiO2 Mean Ox Delivery Rate 09/03 0753 52 170/98 09/03 0753 52 170/98 09/03 0752 52 170/98 09/03 0657 98.3 52 20 170/98 95 09/03 0035 49 170/82 09/02 2324 220/100 09/02 2223 98.4 56 20 180/90 95 Room Air 09/02 202 61 178/98 09/02 2019 96 Room Air Room Air 09/02 1739 91 220/122 09/02 1739 91 220/122 09/02 1513 98.1 68 20 180/88 93 Room Air 09/02 1130 97 Room Air Room Air Intake & Output 09/03 1600 09/03 0800 09/03 0000 Intake Total Output Total Balance Number 1 Bowel Movements Physical Exam General Appearance: Alert, Oriented X3, Cooperative, No Acute Distress Cardiovascular: Regular Rate, Normal S1, Normal S2 Lungs: Clear to Auscultation, Normal Air Movement Abdomen: Normal Bowel Sounds, Soft, No Tenderness Current Medications: Current Medications Sig/Jenny Start time Last Medication Dose Route Stop Time Status Admin Acetylcysteine 2 ML BID 09/01 09 DC INH Albuterol Sulfate 3 ML BID 09/01 2100 AC 09/02 INH 2018 Albuterol Sulfate 2 PUF Q4 HRS NEEDED PRN 08/31 2215 AC 09/01 INH 1907 Amlodipine Besylate 10 MG DAILY 09/01 899 AC 09/03 PO 0752 Budesonide/ 2 PUF BID 09/01 899 AC 09/03 Formoterol Fumarate INH 075 Carvedilol 12.5 MG BID 09/01 0900 AC 09/03 PO 0753 Cefuroxime Sodium 250 MG DAILY 09/01 1200 AC 09/03 PO 0755 Clonidine 0.2 MG BID 09/02 2100 AC 09/03 PO 0753 Clonidine 0.1 MG BID 09/01 0900 DC 09/02 PO 0551 Guaifenesin 600 MG Q12 08/31 2230 AC 09/03 PO 0756 Heparin Sodium 5,000 UNIT Q8 09/01 0600 AC 09/03 (Porcine) SC 0527 Hydralazine HCl 10 MG ONCE ONE 09/02 2315 DC 09/02 PO 09/02 2316 2324 Lorazepam 1 MG TID 09/01 0900 AC 09/03 PO 09/08 0859 0751 Patient Medication 1 ED ONE ONE 09/02 1115 DC 09/02 Teaching ED 09/02 1116 1526 Prednisone 10 MG DAILY 09/04 0900 AC PO 09/04 0901 Prednisone 20 MG DAILY 09/03 0900 AC 09/03 PO 09/03 0901 0754 Prednisone 30 MG DAILY 09/02 0900 DC 09/02 PO 09/02 0901 0825 Sertraline HCl 150 MG DAILY 09/02 0900 AC 09/03 PO 0753 Trazodone HCl 50 MG ONCE ONE 09/02 231 DC 09/02 PO 09/02 2316 2323 Trazodone HCl 50 MG QPM PRN 08/31 2215 DC 09/01 PO 2126 Last 24 Hrs of Lab/[place] Results Last 24 Hrs of Labs/Mics: Laboratory Tests 09/02/17 1650: Urinalysis LIGHT H, Urine Color STRAW, Urine Clarity CLEAR, Urine pH 6.0, Ur Specific [place] 1.020, Urine Protein 100 H, Urine Ketones NEG, Urine Nitrite NEG, Urine Bilirubin NEG, Urine Urobilinogen 0.2, Ur Leukocyte Esterase NEG, Ur Microscopic SEDIMENT EXAMINED, Urine RBC 1-3, Ur Epithelial Cells MOD H, Hyaline Casts RARE H, Urine Hemoglobin SMALL H, Urine Glucose NEG 09/02/17 1650: Ur Random Creatinine 48.4, Ur Random Sodium 96 H, Ur Random Potassium 21.8, Fraction Sodium Excret 3.3 H 09/02/17 1537: Complement C3 Pending, Complement C4 Pending Assessment/Plan Assessment: Ms. 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, anxiety, depression (on sertraline, trazodone and Ativan), PVD s/p stent to R common iliac and femoral artery, osteoporosis and alcohol abuse( quit 6 years ago), CKD presented to the ED with chief complaint of wheezing Problem list: #COPD exacerbation #RIMA on CKD - most likely secondary to Bactrim use #Anxiety #Hypertensive urgency #Dysphagia Plan: Start Losartan 100 mg TRC/nebs PRN Continue acapella for mucus secretions Continue Ceftin 250 mg daily (changed to once daily due to RIMA as per pharmacy recommendations) Continue prednisone taper Continue sertraline, trazodone, clonidine, lorazepam Monitor Cr Barium esophagram unremarkable Vitals every shift Complement and urine spot for Protein/Cr - pending Appreciate Pulm recommendations Appreciate Psych recommendations Appreciate Nephro recommendations Diet: Renal DVT: sc Heparin Code: Full Dispo: Home Problem List: 1. COPD exacerbation 2. RIMA (acute kidney injury) Pain Ratin Pain Location: NA Pain Goal: Remain pain free Pain Plan: NA Tomorrow's Labs & Rationales: none
--- NOTE | 2017-09-03 10:59 | Discharge Summary ---
Visit Information Visit Dates Admission Date: 08/31/17 Discharge Date: 09/03/17 Hospital Course Course Attending Physician: Arden WIN,Maria L Primary Care Physician: Buzz WIN,Hugh Hogan [facility] Course: Ms. 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 She received TRC/nebs PRN. She was given Ceftin 250 mg daily for a total course of 5 days and a prednisone taper. #RIMA on CKD Nephrology was consulted. Patient was reported to have had a renal biopsy done at [facility] October 2014 at which time she was diagnosed with a cryoglobulin anemic glomerulonephritis. She a previous biopsy that showed a focal and segmental glomerulosclerosis. Her acute kidney injury, creatinine of 2.7 trended down to 2 was suspected to be due to volume depletion and Bactrim use. She received adequate IV fluids. We monitored her renal function. Labs showed a normal C4 and low C3 complement and urine proteinuria > 100 #Anxiety Psychiatry was consulted. She was given lorazepam 1 mg TID and her sertraline was increased from 100 to 150 mg. She was given a referral for outpatient psychiatry #Hypertensive urgency We was resumed on her home medication Losartan 100 mg #Dysphagia We performed a Barium esophagram that was unremarkable. During her hospital stay patient was able to tolerate her food well #Chronic medical conditions She was resumed on her home medications Allergies: Coded Allergies: No Known Allergies (12/05/15) Pertinent Lab Results: XRY-CHEST XRAY, TWO VIEWS IMPRESSION: Mild blunting of the costophrenic angles could represent pleural thickening versus small pleural effusions. There is no consolidation. No edema CT CHEST WITHOUT CONTRAST IMPRESSION: 1. Bibasilar dependent infiltrates. 2. Trace bilateral pleural effusions. 3. There are stable small lung nodules unchanged since 07/17/2016. Largest measuring 3 mm. No further imaging would be recommended. XRY-BARIUM SWALLOW/ESOPHAGRAM IMPRESSION: Unremarkable barium study. Etiology of the patient's symptoms has not been determined. US-ABD/PELV ORGAN DOPPLER IMPRESSION: 1. Atrophic kidneys demonstrating increased echogenicity consistent with medical renal disease. No hydronephrosis or nephrolithiasis. 2. No definite sonographic evidence of renal artery stenosis. Disposition Summary Disposition Principal Diagnosis: COPD exacerbation RIMA Additional Diagnosis: as above Discharge Disposition: home or self care Discharge Instructions General Discharge Information Code Status: Full Code Patient's Diet: Heart healthy Patient's Activity: FULL Follow-Up Instructions/Appts: Follow up with your PCP-Dr. Gerber within 1 week of discharge Follow up with your supervisor pressing department-Dr. Honeycutt within 1 week of discharge Follow up with Outpatient psychiatry upon discharge. Your Seroquel was increased and will be further managed by the psychiatrist Complete your Prednisone taper and antibiotics Medications at Discharge Discharge Medications: Stop taking the following medications: Sertraline HCl (Zoloft) 100 MG TABLET ORAL DAILY Prednisone (Deltasone) 20 MG TABLET ORAL DAILY Qty = 12 Sulfamethoxazole/Trimethoprim (Bactrim Ds Tablet) 800 MG-160 MG TABLET ORAL TWICE DAILY Qty = 14 Continue taking these medications: Albuterol Sulfate (Proair Hfa) 8.5 GM HFA.AER.AD 2 Puff Inhale through mouth as needed for COPD Comments: NOT GIVEN AT HOSPITAL Albuterol Sulfate (Albuterol Sulfate) 2.5 MG/3 ML VIAL.NEB 1 Vial Inhale Solution as needed for COPD Comments: Last Taken:12/04/17 Time:8:55 AM Amlodipine Besylate (Amlodipine Besylate) 10 MG TABLET 1 Tablet ORAL DAILY Comments: Last Taken: 09/03/17 Time: 7:52 AM Carvedilol (Coreg) 25 MG TABLET 12.5 Milligram ORAL TWICE DAILY Comments: Last Taken: 09/03/17 Time: 7:53 AM Trazodone HCl (Trazodone HCl) 50 MG TABLET 1 Tablet ORAL Every night as needed for insomnia Comments: NOT GIVEN IN HOSPITAL. Losartan (Cozaar) 100 MG TABLET 1 Tablet ORAL DAILY Comments: Last Taken:09/03/17 Time:21:47 PM Budesonide/Formoterol Fumarate (Symbicort 80-4.5 Mcg Inhaler) 80 MCG-4.5 MCG/ ACTUATION HFA.AER.AD 2 Puff Inhale through mouth TWICE DAILY Comments: Last Taken:09/03/17 Time:7:56 AM Clonidine HCl (Clonidine HCl) 0.2 MG TABLET 1 Tablet ORAL TWICE DAILY Qty = 60 Comments: Last Taken:09/03/17 Time:7:53 AM Start taking the following new medications: Prednisone (Prednisone) 10 MG TABLET 10 Milligram ORAL DAILY Qty = 1 No Refills Instructions: TAKE 10 MG 09/04/17. Guaifenesin (Guaifenesin ER) 600 MG TAB.ER.12H 600 Milligram ORAL EVERY 12 HOURS Qty = 14 No Refills Instructions: . Comments: Last Taken:09/03/17 Time:7:56 AM Sertraline HCl (Sertraline HCl) 50 MG TABLET 150 Milligram ORAL DAILY Qty = 14 No Refills Instructions: . Cefuroxime Axetil (Cefuroxime) 250 MG TABLET 250 Milligram ORAL DAILY Qty = 2 No Refills Instructions: . The following medications have been changed: Old: Lorazepam (Lorazepam) 1 MG TABLET 1 Tablet ORAL THREE TIMES DAILY Qty = 21 New: Lorazepam (Lorazepam) 1 MG TABLET 1 Tablet ORAL THREE TIMES DAILY Qty = 21 Instructions: . Comments: Last Taken:09/03/17 Time:2;06 PM Copies To: Gerard WIN,Brayden Narvaez; Buzz WIN,Hugh Hogan
[2017-09-03 11:05] VITALS: BP 142/82
--- NOTE | 2017-09-03 11:06 | ULTRASOUND REPORT ---
EXAMINATION: ULTRASOUND RENAL WITH DOPPLER CLINICAL INFORMATION: 71-year-old female with hypertensive urgency and acute on chronic kidney disease. Evaluate for renal artery stenosis. COMPARISON: None. TECHNIQUE: Real-time grayscale, color Doppler, and duplex Doppler evaluation of the kidneys and renal vasculature was performed. FINDINGS: RENAL MEASUREMENTS: Right: 8.4 x 3.5 x 3.4 cm (Sag x AP x TV) Left: 8.7 x 4.1 x 4.7 cm (Sag x AP x TV) The kidneys are atrophic and demonstrate increased parenchymal echogenicity consistent with medical renal disease. No hydronephrosis or nephrolithiasis. Urinary bladder is grossly unremarkable. Bilateral ureteral jets are visualized. Prevoid bladder volume is 185 mL. Postvoid volume is 18 mL. DOPPLER INTERROGATION: Aorta: 189 cm/sec Right Main Renal Artery: Proximal: 112 cm/sec Mid: 72 cm/sec Distal: 69 cm/sec Left Main Renal Artery: Proximal: 101 cm/sec Mid: 108 cm/sec Distal: 116 cm/sec Renal-Aortic Ratio (RAR): Right: 0.6 Left: 0.6 IMPRESSION: 1. Atrophic kidneys demonstrating increased echogenicity consistent with medical renal disease. No hydronephrosis or nephrolithiasis. 2. No definite sonographic evidence of renal artery stenosis.
[2017-09-03] MEDS ORDERED: LORAZEPAM1 M1 PO (13:49)
[2017-09-03] MEDS ORDERED: SERTRALINE HCL50 MG PO (13:49)
[2017-09-03] MEDS ORDERED: CEFUROXIME250 M1 PO (13:49)
[2017-09-03] MEDS ORDERED: GUAIFENESIN ER600 MG PO (13:49)
[2017-09-03] MEDS ORDERED: PREDNISONE10 M2 PO (13:49)
[2017-09-03 13:54] VITALS: BP 142/86
--- NOTE | 2017-09-03 14:21 | PN- Pulmonary ---
Subjective HPI/Critical Care Issues: Sleeping this am Stable Review of Systems Constitutional: Reports: see HPI Objective Current Medications: Current Medications Sig/Jenny Start time Last Medication Dose Route Stop Time Status Admin Albuterol Sulfate 3 ML BID 09/01 2100 AC 09/03 INH 0855 Albuterol Sulfate 2 PUF Q4 HRS NEEDED PRN 08/31 2215 AC 09/01 INH 1907 Amlodipine Besylate 10 MG DAILY 09/01 0900 AC 09/03 PO 0752 Budesonide/ 2 PUF BID 09/01 0900 AC 09/03 Formoterol Fumarate INH 0756 Carvedilol 12.5 MG BID 09/01 0900 AC 09/03 PO 0753 Cefuroxime Sodium 250 MG DAILY 09/01 1200 AC 09/03 PO 0755 Clonidine 0.2 MG BID 09/02 2100 AC 09/03 PO 0753 Guaifenesin 600 MG Q12 08/31 2230 AC 09/03 PO 0756 Heparin Sodium 5,000 UNIT Q8 09/01 0600 AC 09/03 (Porcine) SC 1407 Hydralazine HCl 10 MG ONCE ONE 09/02 2314 DC 09/02 PO 09/02 2316 2324 Lorazepam 1 MG TID 09/01 0900 AC 09/03 PO 09/08 0859 1406 Losartan Potassium 100 MG DAILY 09/03 0954 AC 09/03 PO 1247 Prednisone 10 MG DAILY 09/04 0900 AC PO 09/04 0901 Prednisone 20 MG DAILY 09/03 0900 DC 09/03 PO 09/03 0901 0754 Sertraline HCl 150 MG DAILY 09/02 0900 AC 09/03 PO 0753 Trazodone HCl 50 MG ONCE ONE 09/02 2314 DC 09/02 PO 09/02 2316 2323 Vital Signs & I&O Last 24 Hrs of Vitals and I&O: Vital Signs Date Time Temp Pulse Resp B/P B/P Pulse O2 O2 Flow FiO2 Mean Ox Delivery Rate 09/03 1354 97.8 56 20 142/86 97 Room Air 09/03 1247 54 142/82 09/03 1105 54 142/82 09/03 0855 96 Room Air 09/03 0753 52 170/98 09/03 0753 52 170/98 09/03 0752 52 170/98 09/03 0657 98.3 52 20 170/98 95 09/03 0035 49 170/82 09/02 2324 220/100 09/02 2223 98.4 56 20 180/90 95 Room Air 09/02 202 61 178/98 09/02 2019 96 Room Air Room Air 09/02 1739 91 220/122 09/02 1739 91 220/122 09/02 1513 98.1 68 20 180/88 93 Room Air Intake & Output 09/03 1600 09/03 0800 09/03 0000 Intake Total Output Total Balance Number 1 Bowel Movements Impression/Plan Impression/Plan Impression/Plan: General Appearance Alert, Oriented X3, Cooperative, No Acute Distress Skin No Significant Lesion Skin Temp/Moisture Exam: Warm/Dry Sepsis Skin Exam (color): Normal for Ethnicity HEENT Atraumatic, EOMI Cardiovascular Normal S1, Normal S2 Lungs Normal Air Movement, wheezing, ronchi bilateral Abdomen Soft, mild tenderness in deep palpation Neurological Normal Speech, Strength at 5/5 X4 Ext Extremities No Edema Ct chest IMPRESSION: 1. Bibasilar dependent infiltrates. 2. Trace bilateral pleural effusions. 3. There are stable small lung nodules unchanged since 07/17/2016. Largest measuring 3 mm. No further imaging would be recommended. DICTATED BY: Sung Barajas MD DATE/TIME DICTATED:08/31/172130 SIGNIFICANT DATA CT scan as noted above Cultures are pending Pulmonary function test done in 2014 showed mild obstructive lung disease with partial reversibility creatinine chronically elevated at 2.5 sodium is low. White count 7.9 with some left shift. IMPRESSION This is a lady with previous history of mild to moderate COPD, significant smoking history, hepatitis C, previous plasmapheresis for significant cryoglobulinemia with acute kidney injury, recent treatment for hep C per patient, on and off dysphagia which needs evaluation, now comes in with -COPD which appears to be mild to moderate with exacerbation with cough sputum production and chest congestion -Uncontrolled hypertension which is now improving with probable renal artery stenosis with severe peripheral vascular disease -Chronic kidney disease due to hep C with previous glomerulonephritis with history of plasmapheresis -Bilateral bibasilar atelectasis no significant pneumonia with mild bilateral pleural effusion -On and off dysphagia barium swallow neg - needs out pt gi eval -Severe peripheral vascular disease with all the risk factors -REsolving Acute kidney injury with recent Bactrim use and was on ARBR -Significant anxiety as well. RECOMMENDATION Continue prednisone taper Continue albuterol nebulizer as needed Continue Symbicort and start Spiriva 1 puff daily Ceftin 250 twice a day for 5-7 days We'll follow closely
--- NOTE | 2017-09-03 15:33 | PN- Nephrology ---
Assessment/Plan Nephrology Assessment: 1. Acute kidney injury. suspect that this is a combination of volume depletion along with Bactrim administration. 2. Chronic kidney disease. her urinalysis only showed 100 mg/dL protein. It may be helpful to obtain a spot urine protein creatinine ratio. She apparently is being discharged. This can be accomplished later prior to her visit with Dr. Gee 3. History of hepatitis C. Her most recent RNAs were negative. 4. Hypertension. continue losartan. 5. COPD exacerbation versus pneumonia. She is currently on antibiotics. 6. Volume status. She does not appear to be by overloaded at this time. 7. History of anxiety and depression as well as a former history of ethanol abuse.in addition, when I Entered the room, she seemed to be quite happy to see me with her family visiting, she gave me a hug. bipolar? Suggestion: 1. Agree with discharge. 2. She is to see Dr.Irwin Gee, we'll ask the office to move it up Subjective Subjective: Patient feels better. Jubilant at the thought of discharge. Objective Vital Signs and I&Os Vital Signs Date Time Temp Pulse Resp B/P B/P Pulse O2 O2 Flow FiO2 Mean Ox Delivery Rate 09/03 1354 97.8 56 20 142/86 97 Room Air 09/03 1247 54 142/82 09/03 1105 54 142/82 09/03 0855 96 Room Air 09/03 0753 52 170/98 09/03 0753 52 170/98 09/03 0752 52 170/98 09/03 0657 98.3 52 20 170/98 95 09/03 0035 49 170/82 09/02 2324 220/100 09/02 2223 98.4 56 20 180/90 95 Room Air 09/02 2022 61 178/98 09/02 2019 96 Room Air Room Air 09/02 1739 91 220/122 09/02 1739 91 220/122 Intake & Output 09/03 1600 09/03 0400 09/02 1600 09/02 0400 09/01 1600 09/01 0400 Intake Total 493 521 2810 Output Total 200 Balance 484 295 1642 Intake, IV 0 1160 Intake, Oral 620 600 600 Number 2 1 Bowel Movements Output, Urine 200 Patient 107 lb 103 lb Weight Weight Bed scale Reported by Patient Measurement Method Physical Exam: General Appearance: well developed/nourished, no apparent distress, alert, awake , comfortable, thin Head: atraumatic, normal appearance Eyes: Bilateral: PERRL, EOMI. Neck: normal inspection, supple, trachea mid line, no midline tenderness Respiratory: rhonchi,anteriorly and in the upper chest posteriorly no rales. Cardiovascular: regular rate/rhythm Gastrointestinal: normal bowel sounds,standing up Back: normal inspection, normal range of motion, vertebral tenderness Extremities: normal inspection, normal capillary refill, normal range of motion, no edema Neurologic/Psych: no motor/sensory deficits, awake, alert, oriented x 3, Skin: intact, normal color, warm/dry Current Medications: Current Medications Sig/Jenny Start time Last Medication Dose Route Stop Time Status Admin Albuterol Sulfate 3 ML BID 09/01 2100 AC 09/03 INH 0855 Albuterol Sulfate 2 PUF Q4 HRS NEEDED PRN 08/31 2215 AC 09/01 INH 1907 Amlodipine Besylate 10 MG DAILY 09/01 09 AC 09/03 PO 0752 Budesonide/ 2 PUF BID 09/01 09 AC 09/03 Formoterol Fumarate INH 0756 Carvedilol 12.5 MG BID 09/01 09 AC 09/03 PO 0753 Cefuroxime Sodium 250 MG DAILY 09/01 1200 AC 09/03 PO 0755 Clonidine 0.2 MG BID 09/02 2100 AC 09/03 PO 0753 Guaifenesin 600 MG Q12 08/31 2230 AC 09/03 PO 0756 Heparin Sodium 5,000 UNIT Q8 09/01 06 AC 09/03 (Porcine) SC 1407 Hydralazine HCl 10 MG ONCE ONE 09/02 2314 DC 09/02 PO 09/02 2316 2324 Lorazepam 1 MG TID 09/01 899 AC 09/03 PO 09/08 0859 1406 Losartan Potassium 100 MG DAILY 09/03 0954 AC 09/03 PO 1247 Prednisone 10 MG DAILY 09/04 09 AC PO 09/04 09 Prednisone 20 MG DAILY 09/03 09 DC 09/03 PO 09/03 0901 0754 Sertraline HCl 150 MG DAILY 09/02 09 AC 09/03 PO 0753 Trazodone HCl 50 MG ONCE ONE 09/02 2314 DC 09/02 PO 09/02 2316 2323 Results Pertinent Lab Results: Laboratory Tests 09/03 09/02 09/02 0930 1650 1650 Chemistry Sodium (137 - 145 mmol/L) 140 Potassium (3.5 - 5.1 mmol/L) 4.3 Chloride (98 - 107 mmol/L) 107 Carbon Dioxide (22 - 30 mmol/L) 23 Anion Gap (5 - 16) 10 BUN (7 - 17 mg/dL) 36 H Creatinine (0.5 - 1.0 mg/dL) 2.0 H Estimated GFR (>60 ml/min) 25 L BUN/Creatinine Ratio (7 - 25 %) 18.0 Urines Urinalysis LIGHT H Urine Color (YEL,AMB,STR) STRAW Urine Clarity (CLEAR) CLEAR Urine pH (5.0 - 8.0) 6.0 Ur Specific [place] (1.001 - 1.035) 1.020 Urine Protein (NEG,<30 MG/DL) 100 H Urine Ketones (NEG) NEG Urine Nitrite (NEG) NEG Urine Bilirubin (NEG) NEG Urine Urobilinogen (0.1 - 1.0 EU/dl) 0.2 Ur Leukocyte Esterase (NEG) NEG Ur Microscopic SEDIMENT EXAMINED Urine RBC (0 - 5 /HPF) 1-3 Ur Epithelial Cells (NONE,FEW) MOD H Hyaline Casts (0/LPF) RARE H Urine Hemoglobin (NEG) SMALL H Ur Random Creatinine (mg/dL) 48.4 Ur Random Sodium (30 - 90 mmol/L) 96 H Ur Random Potassium (mmol/L) 21.8 Fraction Sodium Excret (<1% %) 3.3 H Urine Glucose (N MG/DL) NEG 09/02 09/02 1537 0535 Chemistry Sodium (137 - 145 mmol/L) 137 Potassium (3.5 - 5.1 mmol/L) 4.7 Chloride (98 - 107 mmol/L) 105 Carbon Dioxide (22 - 30 mmol/L) 23 Anion Gap (5 - 16) 9 BUN (7 - 17 mg/dL) 38 H Creatinine (0.5 - 1.0 mg/dL) 2.3 H Estimated GFR (>60 ml/min) 21 L BUN/Creatinine Ratio (7 - 25 %) 16.5 Hematology CBC w Diff NO MAN DIFF REQ WBC (4.8 - 10.8 /CUMM) 8.0 RBC (4.20 - 5.40 /CUMM) 3.43 L Hgb (12.0 - 16.0 G/DL) 10.4 L Hct (37 - 47 %) 30.9 L MCV (81.0 - 99.0 FL) 90.1 MCH (27.0 - 31.0 PG) 30.4 MCHC (33.0 - 37.0 G/DL) 33.8 RDW (11.5 - 14.5 %) 14.6 H Plt Count (130 - 400 /CUMM) 326 MPV (7.4 - 10.4 FL) 8.7 Gran % (42.2 - 75.2 %) 73.5 Lymphocytes % (20.5 - 51.1 %) 19.3 L Monocytes % (1.7 - 9.3 %) 6.7 Eosinophils % (0 - 5 %) 0.2 Basophils % (0.0 - 2.0 %) 0.3 Absolute Granulocytes (1.4 - 6.5 /CUMM) 5.9 Absolute Lymphocytes (1.2 - 3.4 /CUMM) 1.5 Absolute Monocytes (0.10 - 0.60 /CUMM) 0.5 Absolute Eosinophils (0.0 - 0.7 /CUMM) 0 Absolute Basophils (0.0 - 0.2 /CUMM) 0 Immunology Complement C3 Pending Complement C4 Pending 09/01 09/01 0633 0350 Chemistry Sodium (137 - 145 mmol/L) 132 L Potassium (3.5 - 5.1 mmol/L) 5.2 H Chloride (98 - 107 mmol/L) 104 Carbon Dioxide (22 - 30 mmol/L) 20 L Anion Gap (5 - 16) 8 BUN (7 - 17 mg/dL) 34 H Creatinine (0.5 - 1.0 mg/dL) 2.5 H Estimated GFR (>60 ml/min) 19 L BUN/Creatinine Ratio (7 - 25 %) 13.6 Hematology CBC w Diff NO MAN DIFF REQ WBC (4.8 - 10.8 /CUMM) 5.9 RBC (4.20 - 5.40 /CUMM) 3.43 L Hgb (12.0 - 16.0 G/DL) 10.4 L Hct (37 - 47 %) 30.7 L MCV (81.0 - 99.0 FL) 89.5 MCH (27.0 - 31.0 PG) 30.4 MCHC (33.0 - 37.0 G/DL) 34.0 RDW (11.5 - 14.5 %) 13.7 Plt Count (130 - 400 /CUMM) 355 MPV (7.4 - 10.4 FL) 8.6 Gran % (42.2 - 75.2 %) 87.3 H Lymphocytes % (20.5 - 51.1 %) 10.1 L Monocytes % (1.7 - 9.3 %) 2.5 Eosinophils % (0 - 5 %) 0 Basophils % (0.0 - 2.0 %) 0.1 Absolute Granulocytes (1.4 - 6.5 /CUMM) 5.1 Absolute Lymphocytes (1.2 - 3.4 /CUMM) 0.6 L Absolute Monocytes (0.10 - 0.60 /CUMM) 0.1 Absolute Eosinophils (0.0 - 0.7 /CUMM) 0 Absolute Basophils (0.0 - 0.2 /CUMM) 0 Urines Urinalysis LIGHT H Urine Color (YEL,AMB,STR) YEL Urine Clarity (CLEAR) CLEAR Urine pH (5.0 - 8.0) 6.0 Ur Specific [place] (1.001 - 1.035) 1.015 Urine Protein (NEG,<30 MG/DL) 100 H Urine Ketones (NEG) NEG Urine Nitrite (NEG) NEG Urine Bilirubin (NEG) NEG Urine Urobilinogen (0.1 - 1.0 EU/dl) 0.2 Ur Leukocyte Esterase (NEG) NEG Ur Microscopic SEDIMENT EXAMINED Urine RBC (0 - 5 /HPF) RARE Urine WBC (0 - 2 /HPF) RARE Ur Epithelial Cells (NONE,FEW) RARE Urine Bacteria (NEG/NONE) RARE H Urine Mucus (FEW,NONE) FEW Urine Hemoglobin (NEG) NEG Urine Glucose (N MG/DL) NEG 08/31 1655 Chemistry Sodium (137 - 145 mmol/L) 134 L Potassium (3.5 - 5.1 mmol/L) 4.5 Chloride (98 - 107 mmol/L) 100 Carbon Dioxide (22 - 30 mmol/L) 21 L Anion Gap (5 - 16) 12 BUN (7 - 17 mg/dL) 35 H Creatinine (0.5 - 1.0 mg/dL) 2.7 H Estimated GFR (>60 ml/min) 17 L BUN/Creatinine Ratio (7 - 25 %) 13.0 Glucose (65 - 99 mg/dL) 97 Calcium (8.4 - 10.2 mg/dL) 8.7 Troponin I (< 0.11 ng/ml) 0.02 Hematology CBC w Diff NO MAN DIFF REQ WBC (4.8 - 10.8 /CUMM) 7.9 RBC (4.20 - 5.40 /CUMM) 4.02 L Hgb (12.0 - 16.0 G/DL) 11.8 L Hct (37 - 47 %) 36.3 L MCV (81.0 - 99.0 FL) 90.4 MCH (27.0 - 31.0 PG) 29.4 MCHC (33.0 - 37.0 G/DL) 32.6 L RDW (11.5 - 14.5 %) 14.4 Plt Count (130 - 400 /CUMM) 422 H MPV (7.4 - 10.4 FL) 7.3 L Gran % (42.2 - 75.2 %) 75.2 Lymphocytes % (20.5 - 51.1 %) 14.8 L Monocytes % (1.7 - 9.3 %) 8.5 Eosinophils % (0 - 5 %) 1.2 Basophils % (0.0 - 2.0 %) 0.3 Absolute Granulocytes (1.4 - 6.5 /CUMM) 5.9 Absolute Lymphocytes (1.2 - 3.4 /CUMM) 1.2 Absolute Monocytes (0.10 - 0.60 /CUMM) 0.7 H Absolute Eosinophils (0.0 - 0.7 /CUMM) 0.1 Absolute Basophils (0.0 - 0.2 /CUMM) 0
== END 2017-09-03 15:43 | disposition home health service (06) | DRG 683 ==
LOC: ERH 15:53 → ERHI 21:54 → 2NB 21:54 → ENRESERV 22:27 → ENTRNSPT 22:45 → EDTRNSPTSTS 22:48 → EDTRNSPT 22:48 → 2NB 22:52 → CMPTRNSPT 23:10 → 2NB 09-01 07:49 → ENPENDDIS 09-03 13:55 → 2NB 09-03 15:43
PROVIDERS: Physician Assistant; Student in an Organized Health Care Education/Training Program
DX: N17.9 Acute kidney failure, unspecified (principal); E87.2 Acidosis; J44.1 Chronic obstructive pulmonary disease with (acute) exacerbation; T37.0X5A Adverse effect of sulfonamides, initial encounter; N05.8 Unspecified nephritic syndrome with other morphologic changes; B18.2 Chronic viral hepatitis C; E78.5 Hyperlipidemia, unspecified; F32.9 Major depressive disorder, single episode, unspecified; R13.10 Dysphagia, unspecified; F41.9 Anxiety disorder, unspecified; I73.9 Peripheral vascular disease, unspecified; M81.0 Age-related osteoporosis without current pathological fracture; N18.4 Chronic kidney disease, stage 4 (severe); R91.8 Other nonspecific abnormal finding of lung field; I16.0 Hypertensive urgency; Z87.891 Personal history of nicotine dependence; Z86.73 Personal history of transient ischemic attack (TIA), and cerebral infarction without residual deficits; Z87.81 Personal history of (healed) traumatic fracture
CPT/HCPCS: 2NBSP; 84133; 84300; 86160; 36415; 36592; 71046; 74220; 81001; 82436; 82570; 87040; 87070; 87449; 87450; 93005; 93010; 96374; 96375; J0456; J0696; J1644; J3490; J7040; J7512; J7608

== ENCOUNTER 2017-11-29 12:33 | Emergency (ER) | payer OTHER, MEDICARE ==
[~2017-11-29] VITALS: Ht 154.9 cm; Wt 46.3 kg
[~2017-11-29 12:33] MED LIST changes: +CATAPRES0.2 MG PO; +CEFUROXIME250 M1 PO; +CLONIDINE HCL0.3 M1 PO; +GUAIFENESIN ER600 MG PO; +INCRUSE ELLI62.5 MCG PO; +PREDNISONE10 M2 PO; +SERTRALINE HCL50 MG PO; +SYMBICORT 16010.2 GM INH; +SYMBICORT 80-10.2 GM INH
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
--- NOTE | 2017-11-29 14:43 | RADIOLOGY REPORT ---
EXAMINATION: XR ANKLE, LEFT XR FOOT, LEFT CLINICAL INFORMATION: Status post fall down stairs yesterday. Twisted ankle. Rule out fracture. COMPARISON: None TECHNIQUE: AP, lateral, and mortise views of the left ankle and AP, lateral, and oblique views of the left foot. FINDINGS: LEFT ANKLE: Bones are osteopenic. No acute fracture or malalignment. Mild soft tissue swelling at the ankle. Small enthesopathic spur is present at the plantar fascial origin on the calcaneus. LEFT FOOT: Bones are osteopenic. There is moderate hallux valgus. Postoperative changes of prior first metatarsal osteotomy are noted. Mild to moderate osteophyte arthritis is present in the first and second MTP joints. There is solid osseous fusion at the second toe PIP joint. Mild osteoarthritis is present in other interphalangeal joints. No other fractures are identified. IMPRESSION: 1. No acute fracture or malalignment in the left ankle and foot. 2. Soft tissue swelling in the ankle and foot. 3. 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
[2017-11-29 15:25] VITALS: BP 148/73
== END 2017-11-29 15:42 ==
LOC: ERH 12:33
DX: S93.402A Sprain of unspecified ligament of left ankle, initial encounter (principal); X58.XXXA Exposure to other specified factors, initial encounter; Y92.039 Unspecified place in apartment as the place of occurrence of the external cause; Y93.89 Activity, other specified
CPT/HCPCS: 73610-LT; 73630-LT